=== PATIENT | male | born 1950 | race Caucasian/White ===

== ENCOUNTER 2022-03-25 15:03 | Emergency (ER) | payer OTHER ==
--- OUTSIDE RECORDS SUMMARY | 2022-03-25 15:06 | XMS REPORT | Continuity of Care Document ---
:1950 Author Organization [facility] t Address [address] [place] [address] Care Team Providers Name Role Phone [phone] Primary Care Physician Unavailable IRASEMA MYLES Attending Clinician Unavailable SYSTEM, PROVIDER NOT IN Attending Clinician Unavailable Maria C Costello Attending Clinician Benson Bryan APN Attending Clinician Valerie Jones APN Attending Clinician VALERIE JONES Attending Clinician Unavailable Silverio Irwin MD Attending Clinician SILVERIO IRWIN Attending Clinician Unavailable Mychal Lacey MD Attending Clinician Ander Bower MD Attending Clinician Provider, Unknown Attending Clinician Unavailable MATEO VACA Attending Clinician Unavailable ABDON DAVEY Attending Clinician Unavailable LIAM ALTMAN Attending Clinician Unavailable BULMARO Attending Clinician Unavailable DANIEL OSCAR Attending Clinician Unavailable Chandler Talamantes Attending Clinician [phone] IKE QUINTERO Attending Clinician Unavailable IRASEMA MYLES Admitting Clinician Unavailable LIAM ALTMAN Admitting Clinician Unavailable BULMARO Admitting Clinician Unavailable Payers Payer Name Policy Type Policy Number Effective Date Expiration Date Kevyn de anda MEDICARE PART A [id number] 2016 AND B 00:00:00 M[employer]UAL OF FABI [id number] 2016 00:00:00 MUTUAL OF FABI [id number] 2016 00:00:00 [place]: [id number] 2016 [employer] 00:00:00 MEDICARE PART A [id number] 2016 \\T\\ B 00:00:00 Problems Condition Condition Condition Status Onset Resolution Last Treating Co mments Source Name Details Category Date Date Treatment Clinician Date Malignant Malignant Disease Active Uni vers neoplasm neoplasm 03-13 ity of of 00:00: [place] prostate prostate 00 MD Ruiz [facility] Allergies, Adverse Reactions, Alerts Allergy Allergy Status Severity Reaction(s) Onset Inactive Treating Comm ents Source Name Type Date Date Clinician NO KNOWN Drug Active Univers ALLERGIE Class ity of S [facility] Family History Family Member Diagnosis Comments Start Date Stop Date Source Natural father Prostate [facility] [place] [facility] Social History Social Habit Start Date Stop Date Quantity Comments Source Exposure to 2022-03-13 2022-03-23 Not sure [facility]-CoV-2 00:00:00 08:22:00 Brodie allison (event) [facility] Tobacco use and 2022-03-23 2022-03-23 Smokeless tobacco Un iversity of exposure 00:00:00 00:00:00 non-user Brodie [facility] [place] Alcohol intake 2022-03-23 2022-03-23 Ex-drinker [facility] 00:00:00 00:00:00 (finding) [place] MD [facility] Sex Ass[birth year] Universit y of 00:00:00 00:00:00 Brodie allison [facility] Smoking Status Start Date Stop Date Source Never smoked tobacco [facility] Medications Ordered Filled Start Stop Current Ordering Indication Dosage Frequency Signature Comments Components Source Medication Medication Date Date Medication? Clinician (SIG) Name Name zolpidem Yes 10mg Take 10 mg Uni vers (AMBIEN) 10 8-15 by mouth ity of mg tablet 08:40: at [place] 15 bedtime. MD Sara durham [facility] tadalafil Yes 10mg Take 10 mg Un kayla (CIALIS) 10 1-11 by mouth ity of mg tablet 00:00: daily. [place] 00 MD Sara durham [facility] lisinopril Yes 2.5mg Take 2.5 Un kayla (PRINIVIL,Z 1-10 mg by ity of ESTRIL) 2.5 00:00: mouth [place] mg tablet 00 daily. MD Sara durham [facility] Vital Signs Vital Name Observation Time Observation Value Comments Source Body height 2022-03-23 14:00:00 172.7 cm [facility] MD [place] on [facility] Body weight 2022-03-23 14:00:00 84.5 kg [facility] MD Norton [employer] [facility] BMI 2022-03-23 14:00:00 28.33 kg/m2 [facility] MD [place] on [facility] Systolic blood 2022-03-23 13:35:13 147 mm[Hg] Univer sity of pressure [place] MD Norton on [facility] Diastolic blood 2022-03-23 13:35:13 76 mm[Hg] Unive rsity of pressure [place] MD [place] on [facility] Heart rate 2022-03-23 13:35:13 76 /min [facility] MD Norton on [facility] Body temperature 2022-03-23 13:35:13 36.39 Rose [facility] [place] [facility] MD [place] on [facility] Respiratory rate 2022-03-23 13:35:13 20 /min [facility] MD [place] on [facility] Oxygen saturation in 2022-03-23 13:35:13 94 /min [facility] blood by Brodie best Pulse oximetry [facility] Procedures Procedure Date / Time Performing Clinician Source Performed MRI PELVIS W WO CONTRAST 2022-03-23 19:59:52 Valerie Jones [facility] COMPLETE BLOOD COUNT W/ 2022-03-23 13:45:00 Valerie Jones [facility] DIFFERENTIAL [facility] LACTATE DEHYDROGENASE 2022-03-23 13:45:00 Valerie Jones versity [facility] PROSTATE SPECIFIC ANTIGEN 2022-03-23 13:45:00 Valerie Jones [facility] TESTOSTERONE LEVEL 2022-03-23 13:45:00 [facility] COMPREHENSIVE METABOLIC 2022-03-23 13:45:00 [facility] VIT[facility]IN D 25 HYDROXY LEVEL 2022-03-23 13:45:00 Valerie Jones [facility] PTH INTACT 2022-03-23 13:45:00 Valerie Jones [facility] MAGNESIUM LEVEL 2022-03-23 13:45:00 Valerie Jones [facility] PHOSPHORUS LEVEL 2022-03-23 13:45:00 Valerie Jones [facility] Results CBC 2022-03-23 13:45:00 Valerie Jones [facility] MANUAL DIFFERENTIAL 2022-03-23 13:45:00 [facility] GLUCOSE LEVEL 2022-03-23 13:45:00 Valerie Jones [facility] BLOOD UREA NITROGEN 2022-03-23 13:45:00 Valerie Jones [facility] [place] [facility] ELECTROLYTE PANEL 2022-03-23 13:45:00 Valerie Jones [facility] [place] [facility] SERUM CREATININE 2022-03-23 13:45:00 Valerie Jones [facility] .GLOMERULAR FILTRATION 2022-03-23 13:45:00 Valerie Jones [facility] RATE [facility] CALCIUM LEVEL TOTAL 2022-03-23 13:45:00 [facility] ALBUMIN LEVEL 2022-03-23 13:45:00 Valerie Jones [facility] [place] [facility] ALKALINE PHOSPHATASE 2022-03-23 13:45:00 Valerie Jones [facility] ALANINE AMINOTRANSFERASE 2022-03-23 13:45:00 Valerie Jones [facility] ASPARTATE AMINOTRANSFERASE 2022-03-23 13:45:00 Valerie Jones [facility] TOTAL PROTEIN 2022-03-23 13:45:00 Valerie Jones [facility] [place] [facility] FRACTIONATED BILIRUBIN 2022-03-23 13:45:00 Valerie [facility] O[facility] US TESTICULAR 2022-02-08 22:20:00 Physician, Outside [facility] [place] [facility] OSI SHOULDER 2022-01-16 01:20:00 Chandler Talamantes [facility] OSI FOOT 2022-01-16 01:19:00 Chandler Talamantes [facility] OSI BONE SCAN 2022-01-02 01:19:00 Chandler Talamantes [facility] OSI CHEST 2022-01-02 01:18:00 Chandler Talamantes [facility] OSI CT ABDOMEN AND PELVIS 2022-01-02 01:18:00 Chandler Talamantes [facility] PATHOLOGY OUTSIDE 2021-10-14 00:00:00 Ander Bower [facility] Plan of Care Planned Activity Planned Date Details Comments Source Future Scheduled Test 2022-03-25 COVID-19 Vaccination [facility] 09:45:56 (3 - Booster for MD Jose A Cancer Pfizer series) [code Center = COVID-19 Vaccination (3 - Booster for Pfizer series)] Future Appointment 2022-04-15 Irasema Myles MD, [facility] 10:20:00 1515 [place] [address] Center Future Appointment 2022-04-15 Irasema Myles MD, [facility] 10:20:00 1515 Tamra Merrill [place] [address] Center Procedure 2022-04-15 DIAGNOSTIC FLEXIBLE [facility] [place] 15:20:00 COLONOSCOPY PROXIMAL MD Neel sawyer Cancer TO SPLENIC FLEXURE Center Encounters Start End Encounter Admission Attending Care Care Encounter Source Date/Time Date/Time Type Type Clinicians Facility Department ID 2022-03-24 Outpatient CHRIS MYLES Percy/Hep/Nu [id number] 11:12:08 IRASEMA durham 2022-03-10 Outpatient JOCE, CHRIS PEREZ [id number] 14:49:26 PROVIDER Errol christopher 2022-02-27 Outpatient [facility] [id number] [place] 09:44:04 [id number] [facility] 2022-02-08 Outpatient [facility] [id number] [place] 15:38:45 [id number] [facility] 2022-03-24 2022-03-24 Prep for Walker, 1.2.840.1 [id number] Univers 00:00:00 00:00:00 Surgery Mertie 29997.1.1 ity of 3.412.2.7 [place] .3.702576 .8 [facility] 2022-03-24 2022-03-24 Orders Irvin, 1.2.840.1 [id number] Univers 00:00:00 00:00:00 Only Charvalentina 69463.1.1 i ty of A 3.412.2.7 [place] .3.050729 .8 [facility] 2022-03-23 2022-03-23 Ancillary Faisal, 1.2.840.1 [id number] Univers 14:15:00 16:00:00 Procedure Valerie Durham 09101.1.1 ity of 3.412.2.7 [place] .3.471415 MD Saavedra [facility] 2022-03-23 2022-03-23 Outpatient SABRINA JONES MDA MDA [id number] 12:05:22 12:05:22 VALERIE campbello n 2022-03-23 2022-03-23 [facility] Jones, 1.2.840.1 [id number] [facility] 08:24:02 08:24:02 Encounter Valerie Durham 41183.1.1 ity of 3.412.2.7 [place] .3.868905 MD Kim8 [facility] 2022-03-23 2022-03-23 Outpatient SABRINA JONES [facility] [id number] 08:24:02 08:24:02 VALERIEIGLESIA Shaikh shon durham 2022-03-23 2022-03-23 [facility] Silverio Irwin 1.2.840.1 [id number] [facility] 08:23:25 08:23:25 [place] 42221.1.1 it y of 3.412.2.7 [place] .3.318473 MD Kim8 [facility] 2022-03-23 2022-03-23 Outpatient SILVERIO KINSEY [facility] [id number] 08:23:25 08:23:25 Errol o marva 2022-03-23 2022-03-23 Travel 1.2.840.1 [id number] [id number] Univers 00:00:00 00:00:00 19299.1.1 350.1.13.41 ity of 3.412.2.7 2.[place].7.3.698 [place] .3.843946 084.8 MD Kim8 [facility] 2022-03-19 2022-03-19 Outpatient SILVERIO KINSEY [facility] [id number] 10:27:35 10:30:58 Errol o n 2022-03-19 2022-03-19 Lab Mychal Lacey 1.2.840.1 [id number] Univers 00:00:00 00:00:00 Ander Huff 44315.1.1 ity of n 3.412.2.7 [place] .3.290517 MD Kim8 [facility] 2022-03-19 2022-03-19 Travel 1.2.840.1 1.2.269.291 [id number] Univers 00:00:00 00:00:00 03097.1.1 350.1.13.41 ity of 3.412.2.7 2.[place].7.3.698 [place] .3.078919 084.8 MD Kim8 [facility] 2022-03-18 2022-03-18 Ancillary 1.2.840.1 [id number] Univers 20:35:00 20:40:00 Procedure 47592.1.1 it y of 3.412.2.7 [place] .3.974911 MD Kim8 [facility] 2022-03-18 2022-03-18 Ancillary 1.2.840.1 [id number] Univers 20:30:00 20:35:00 Procedure 75598.1.1 it y of 3.412.2.7 [place] .3.166588 MD Kim8 [facility] 2022-03-18 2022-03-18 Ancillary 1.2.840.1 [id number] Univers 20:25:00 20:30:00 Procedure 60990.1.1 it y of 3.412.2.7 [place] .3.870577 MD Kim8 [facility] 2022-03-18 2022-03-18 Ancillary 1.2.840.1 [id number] Univers 20:20:00 20:25:00 Procedure 07583.1.1 it y of 3.412.2.7 [place] .3.525047 .8 [facility] 2022-03-18 2022-03-18 Ancillary 1.2.840.1 [id number] Univers 20:15:00 20:20:00 Procedure 29294.1.1 it y of 3.412.2.7 [place] .3.395217 MD Kim8 [facility] 2022-03-18 2022-03-18 Outpatient EL MDA MDA [id number] MD 20:17:44 20:17:44 Errol o 2022-03-18 2022-03-18 Outpatient EL MDA MDA [id number] MD 20:17:04 20:17:04 Errol o 2022-03-18 2022-03-18 Outpatient EL MDA MDA [id number] MD 20:16:00 20:16:00 Errol o n 2022-03-18 2022-03-18 Outpatient EL MDA MDA [id number] MD 20:15:23 20:15:23 Errol o n 2022-03-18 2022-03-18 Outpatient EL MDA MDA [id number] 20:14:33 20:14:33 [facility] o 2022-03-18 2022-03-18 Ancillary 1.2.840.1 [id number] [facility] 20:00:00 20:05:00 Procedure 69422.1.1 it y of 3.412.2.7 [place] .3.286341 .8 [facility] 2022-03-18 2022-03-18 Outpatient MDA MDA [id number] MD 15:10:14 15:10:14 [facility] 2022-03-13 2022-03-13 Orders Jones, 1.2.840.1 [id number] Univers 00:00:00 00:00:00 Only Valerie Durham 66501.1.1 ity of 3.412.2.7 [place] .3.965872 .8 [facility] 2022-03-12 2022-03-12 Telephone Provider, 1.2.840.1 [id number] Univers 00:00:00 00:00:00 Unknown 37957.1.1 ity of 3.412.2.7 [place] .3.647497 .8 [facility] 2022-02-08 2022-02-08 Emergency E STROELLIOT ROJAS MHSE [id number] 14:58:00 20:52:[address] [facility] 2022-02-06 2022-02-06 Outpatient ELLIOT DAVEYSE [id number] MH 07:03:00 10:17:[address] [facility] 2022-01-15 2022-01-15 Outpatient ELLIOT ALTMAN URO [id number] MH 12:33:00 23:59:[address] [facility] 2022-01-15 2022-01-15 Outpatient AGAPITO, MHSE URO [id number] MH 07:00:00 23:59:[address] [facility] 2022-01-06 2022-01-06 Outpatient ERICKSON_R [facility] [id number] [place] 12:16:00 12:16:00 531 [facility] 2022-01-01 2022-01-01 Outpatient AGAPITO MHSE URO [id number] MH 07:26:00 23:59:[address] [facility] 2021-12-01 2021-12-01 Outpatient DAYNE MHSE MHSE [id number] MH 07:52:00 23:59:[address] [facility] 2021-10-06 2021-10-06 Outpatient ERICKSON_R [facility] [id number] - [place] 09:44:00 09:44:00 228 [facility] 2021-10-06 2021-10-06 Outpatient Albin, [facility] [id number] 00:00:00 00:00:00 Chandler [id number] [place] [id number] 2021-09-04 2021-09-04 Outpatient ERICKSON_R [facility] [id number] [place] 03:19:00 03:19:00 127 [facility] 2021-08-05 2021-08-05 Outpatient ERICKSON_R [facility] [id number] [place] 09:44:00 09:44:00 228 [facility] 2021-08-05 2021-08-05 Outpatient Albin, [facility] [id number] 00:00:00 00:00:00 Chandler lanzaa [place] [id number] [id number] 2021-08-05 2021-08-05 Outpatient Albin, [facility] [id number] 00:00:00 00:00:00 Chandler lanzab [place] [id number] [id number] 2021-06-30 2021-06-30 Outpatient ERICKSON_R [facility] [id number] [place] 08:40:00 08:40:00 122 [facility] 2021-06-26 2021-06-26 Outpatient ERICKSON_R [facility] [id number] - [place] 09:44:00 09:44:00 118 [facility] 2021-06-26 2021-06-26 Outpatient Albin, [facility] [id number] 00:00:00 00:00:00 Chandler [id number] [place] [id number] 2021-01-21 2021-01-21 Outpatient ERICKSON_R [facility] [id number] - [place] 01:48:00 01:48:00 615 [facility] 2020-10-08 2020-10-08 Outpatient Remigio [facility] [id number] Univers 08:10:00 08:10:00 IKE [id number] [facility] 2020-10-08 2020-10-08 Outpatient Remigio [facility] [id number] Univers 08:10:00 08:10:00 IKE [facility] 2020-10-04 2020-10-04 Outpatient ERICKSON_R [facility] [id number] [place] 10:18:00 10:18:00 226 [facility] 2020-10-01 2020-10-01 Outpatient ERICKSON_R [facility] [id number] - [place] 10:02:00 10:02:00 223 [facility] 2020-10-01 2020-10-01 Outpatient Albin [facility] [id number] 00:00:00 00:00:00 [place] [id number] [place] [id number] Results Test Description Test Time Test Comments Results Result Comments Source Testosterone Level 2022-03-23 16:09:00 Test Item Value Reference Range Interpretation Comme nts Testoster Tot (test code = >1390 193-740 H R eference Ranges: Male: 2986-8) Age 20 - 49 249 - 836 Age >=50 193 - 740 Female: Age 20 - 49 8 - 48 Age >=50 3 - 41 NABIL (test code = NABIL) Please schedule early AM prior to new patient visit. Lab Interpretation (test code Abnormal = 76638-7) [facility] [id number] 16:05:03 Test Item Value Reference Range Interpretation Comments Vitamin D 25 OH 34 ng/mL 30-100 Reference Ra nge: (test code = Deficiency: <10 19378-1) ng/mLInsufficie ncy: 10-29 ng/mLSufficienc y: 30-100 ng/mLPotential toxicity: >100 ng/mL NABIL (test code = Please schedule NABIL) early AM prior to new patient visit. [facility]A2022-08-15 15:57:12 Test Item Value Reference Range Interpretation Comments PSA (test code = 8.6 ng/mL 0.0-4.0 H Results gre ater 2857-1) than 4519 ng/mL may not be reliable due to matrix effect w ith extended diluti on as it exceeds t he resource specialist teacher's recommended ramirez it. Caution should be exercised when interpreting durham ch values and done in conjunction wit h clinical contex t. PSA Indication (test Diagnostic code = 81807-9) NABIL (test code = NABIL) Please schedule early AM prior to new patient visit. Lab Interpretation Abnormal (test code = 70490-1) [facility] CenterFractionated [id number] 15:57:11 Test Item Value Reference Range Interpretation Comments Bili Total (test 0.7 mg/dL See_Comment Indocyanine Green code = 1974-2) (ICG) may cau se falsely elevate d bilirubin resul ts. Total and direc t bilirubin must not be measured from s amples containing indo cyanine green. False el evation of total biliru bin can be seen in sliva ents with IgG concentrations above 28 g/L. [Automa lev message] The sy stem which generated this result transmit lev reference range : <=1.2. The refe rence range was not u sed to interpret this result as normal/abnor mal. Bili Direct 0.2 mg/dL See_Comment Indocyanine Gre en (test code = (ICG) may cause 1968-02) falsely elevate d bilirubin resul ts. Total and direc t bilirubin must not be measured from s amples containing indo cyanine green. [Automat ed message] The sy stem which generated this result transmit lev reference range : <=0.3. The refe rence range was not u sed to interpret this result as normal/abnor mal. Bili Indirect 0.5 mg/dL 0.0-0.9 (test code = 1970-) NABIL (test code = Please schedule NABIL) early AM prior to new patient visit. [facility] CenterPhosphorus [id number] 15:57:10 Test Item Value Reference Range Interpretation Comments Phosphorus (test code = 2.6 mg/dL 2.5-4.5 2777-1) NABIL (test code = NABIL) Please schedule early AM prior to new patient visit. [facility] CenterLDH2022-08-15 15:57:08 Test Item Value Reference Range Interpretation Comments LDH (test code 215 U/L 135-225 Results great er than = 62567-6) 1651 U/L may no t be reliable due to matrix effect with ext ended dilution as it exceeds the manufacture r's recommended ramirez it. Caution should be exercised when interpreting durham ch values and done in conjunction wit h clinical contex t. NABIL (test code Please schedule = NABIL) early AM prior to new patient visit. [facility] CenterGlomerular Filtration Rate 2022-03-23 15:57:07 Test Item Value Reference Range Interpretation Comments eGFR-AA (test 86 See_Comment Normal eGFR: > = 60 code = mL/min/1.73 m2N ote: The 02185-7) eGFR is calcula lev using the CKD-E PI equation. The e GFR declines with a ge. eGFR <60 mL/min/1.73 m2 is considered as "decreased". Th is equation should only be used for patien ts 18 and older. Acco rding to the National Ki dney Foundation's Ki dney Disease Outcome Quality Initiative (KDO QI) classification and 2012 Kidney Disease Improving Globa l Outcomes (KDIGO ) Clinical Practi ce Guideline, the stage of CKD should be categorized bas ed on estimated GFR. Stage Description GFR mL/min/1.73 m21 Normal or high GFR >=9 02 Mildly decrease d GFR 60-893a Mildly to moderately decr eased GFR 45-593b Mod erately to severely dec reased GFR 30-444 Sara rely decreased GFR 1 5-295 Kidney failure <15 [Automated mess age] The system which ge nerated this result tra nsmitted reference range : >=60 mL/min/1.73 sq. m. The reference range was not used to interpr et this result as normal/abnormal . eGFR-ROBBIN (test 74 See_Comment Normal eGFR: >= 60 code = mL/min/1.73 m2N ote: The 46097-8) eGFR is calcula lev using the CKD-E PI equation. The e GFR declines with a ge. eGFR <60 mL/min/1.73 m2 is considered as "decreased". Th is equation should only be used for patien ts 18 and older. Acco rding to the National Ki dney Foundation's dney Disease Outcome Quality Initiative (KDO QI) classification and 2012 Kidney Disease Improving Globa l Outcomes (KDIGO ) Clinical Practi ce Guideline, the stage of CKD should be categorized bas ed on estimated GFR. Stage Description GFR mL/min/1.73 m21 Normal or high GFR >=9 02 Mildly decrease d GFR 60-893a Mildly to moderately decr eased GFR 45-593b Mod erately to severely dec reased GFR 30-444 Sara rely decreased GFR 1 5-295 Kidney failure <15 [Automated mess age] The system which ge nerated this result tra nsmitted reference range : >=60 mL/min/1.73 sq. m. The reference range was not used to interpr et this result as normal/abnormal . NABIL (test code Please schedule = NABIL) early AM prior to new patient visit. [facility] CenterCalcium [id number] 15:57:06 Test Item Value Reference Range Interpretation Comments Calcium Lvl (test code 8.9 mg/dL 8.4-10.2 = 63489-5) NABIL (test code = NABIL) Please schedule early AM prior to new patient visit. [facility] CenterTotal [id number] 15:57:05 Test Item Value Reference Range Interpretation Comments Total Protein (test 6.9 g/dL 6.4-8.3 code = 2885-2) NABIL (test code = NABIL) Please schedule early AM prior to new patient visit. [facility] CenterAlbumin [id number] 15:57:04 Test Item Value Reference Range Interpretation Comments Albumin Lvl (test 3.9 See_Comment [Automate d message] code = 4763) The system whic h generated this result transmit lev reference range : 3.5 - 5.2 gm/dL. Th e reference range was not used to interpret this result as normal/abnormal . NABIL (test code = Please schedule NABIL) early AM prior to new patient visit. [facility] CenterMagnesium [id number] 15:57:03 Test Item Value Reference Range Interpretation Comments Magnesium (test code = 2.1 mg/dL 1.6-2.6 79192-0) NABIL (test code = NABIL) Please schedule early AM prior to new patient visit. [facility] CenterAspartate Aminotransferase 2022-03-23 15:57:02 Test Item Value Reference Range Interpretation Comments AST (test code = 56 U/L See_Comment H [Automated 1920-03) message] The system which generated this result transmit lev reference range : <=40. The reference range was not used to interpret this result as normal/abnormal . NABIL (test code = NABIL) Please schedule early AM prior to new patient visit. Lab Interpretation Abnormal (test code = 22071-5) [facility] CenterAlkaline [id number] 15:57:01 Test Item Value Reference Range Interpretation Comments Alk Phos (test code = 122 U/L 40-129 6768-6) NABIL (test code = NABIL) Please schedule early AM prior to new patient visit. [facility] CenterElectrolyte Pskzj9812-02-76 15:57:00 Test Item Value Reference Range Interpretation Comments Sodium Lvl (test 141 See_Comment [Automated code = 2951-2) message] The system which generated this result transmitted reference range : 136 - 145 mEq/L . The reference r bryan was not used to interpret this result as normal/abnormal . Potassium Lvl 4.2 See_Comment [Automated (test code = message] The sy stem 2823-3) which generated this result transmitted reference range : 3.5 - 5.1 mEq/L . The reference r bryan was not used to interpret this result as normal/abnormal . Chloride (test 105 See_Comment [Automated code = 5-0) message] The system which generated this result transmitted reference range : 98 - 107 mEq/L. Th e reference range was not used to interpret this result as normal/abnormal . CO2 (test code = 26 See_Comment [Automated 2027-) message] The sy stem which generated this result transmitted reference range : 22 - 29 mEq/L. The reference range was not used to interpret this result as normal/abnormal . Anion Gap (test 10 See_Comment [Automated code = 55229-4) message] The system which generated this result transmitted reference range : 4 - 14 mEq/L. The reference range was not used to interpret this result as normal/abnormal . NABIL (test code = Please schedule NABIL) early AM prior to new patient visit. [facility] 15:[facility]59 Test Item Value Reference Range Interpretation Comments ALT (test code = 42 U/L See_Comment H [Automated 1742-01) message] The system which generated this result transmit lev reference range : <=41. The reference range was not used to interpret this result as normal/abnormal . NABIL (test code = NABIL) Please schedule early AM prior to new patient visit. Lab Interpretation Abnormal (test code = 17345-8) [facility] [id number] 15:56:58 Test Item Value Reference Range Interpretation Comments Glucose Level (test 108 mg/dL 70-99 H Effectiv e 03/04/16, code = 2345-7) the glucose reference intervals have been updated ba sed on [place] [employer] guidelines (Standards of Medical Care in Diabetes 2016. Diabetes Care 2016; 39: S13-S22).Fastin g blood glucose:Normal: 70-99 mg/dLImpaired fasting glucose (increased risk for diabetes or pre-diabetes): 100-125 mg/dLDiabetes mellitus: >/=12 6 mg/dL Random bl ood glucose:Normal: 70-199 mg/dLNot e: Random glucose >100 mg/dL is associated with increased risk for diabetes NABIL (test code = NABIL) Please schedule early AM prior to new patient visit. Lab Interpretation Abnormal (test code = 07628-4) [facility].Serum [id number] 15:56:57 Test Item Value Reference Range Interpretation Comments Creatinine (test code = 1.02 mg/dL 0.67-1.17 2160-0) NABIL (test code = NABIL) Please schedule early AM prior to new patient visit. [facility] 15:56:56 Test Item Value Reference Range Interpretation Comments BUN (test code = 16 mg/dL 6-23 3094-0) NABIL (test code = NABIL) Please schedule early AM prior to new patient visit. [facility]PTH Jyhqtq5339-25-91 15:48:40 Test Item Value Reference Range Interpretation Comments PTH Intact (test code 61.9 pg/mL 15.0-65.0 = 6769) NABIL (test code = NABIL) Please schedule early AM prior to new patient visit. [facility] CenterDifferential2022-[facility]-15 15:22:05 Test Item Value Reference Range Interpretation Comments Neutrophil % (test 51.2 % 42.0-66.0 code = 770-8) Lymphocyte % (test 35.2 % 24.0-44.0 code = 736-9) Monocyte % (test code 10.3 % 2.0-7.0 H = 5905-5) Eosinophil % (test 2.1 % 1.0-4.0 code = 713-8) Basophil % (test code 0.9 % 0.0-1.0 = 06753-0) IGRE % (test code = 0.3 % 0.0-0.4 IGRE % c ount 69747-3) includes Metamyelocytes, Myelocytes, and Promyelocytes. Neutrophil Abs (test 1.69 K/uL 1.70-7.30 L code = 751-8) Lymphocyte Abs (test 1.16 K/uL 1.00-4.80 code = 731-0) Monocyte Abs (test 0.34 K/uL 0.08-0.70 code = 742-7) Eosinophil Abs (test 0.07 K/uL 0.04-0.40 code = 711-2) Basophil Abs (test 0.03 K/uL 0.00-0.10 code = 704-7) IG Abs (test code = 0.01 K/uL 0.00-0.04 96705-3) NABIL (test code = NABIL) Please schedule early AM prior to new patient visit. Lab Interpretation Abnormal (test code = 65020-6) [facility] [place].KHA2610-11-45 15:21:50 Test Item Value Reference Range Interpretation Comments WBC (test code = 3.3 K/uL 4.0-11.0 L 6690-2) RBC (test code = 4.50 See_Comment [Automated 789-8) message] The sy stem which generated this result transmitted reference range : 4.50 - 6.00 M/u L. The reference r bryan was not used to interpret this result as normal/abnormal . Hgb (test code = 14.9 See_Comment [Automated 178-7) message] The sy stem which generated this result transmitted reference range : 14.0 - 18.0 gm/ dL. The reference r bryan was not used to interpret this result as normal/abnormal . Hct (test code = 44.1 % 40.0-54.0 4544-3) MCV (test code = 98 fL 82-98 787-2) MCH (test code = 33.1 pg 27.0-31.0 H 785-6) MCHC (test code = 33.8 See_Comment [Automate d 786-4) message] The sy stem which generated this result transmitted reference range : 31.0 - 36.0 gm/ dL. The reference r bryan was not used to interpret this result as normal/abnormal . RDW-SD (test code = 52.3 fL 35.1-46.3 H 25228-2) RDW-CV (test code = 14.5 % 12.0-15.5 788-0) Platelet count (test 78 K/uL 140-440 L code = 777-3) MPV (test code = 12.3 fL 4.0-10.4 H 91913-5) INRBC (test code = 0.0 % See_Comment The INRBC 54832-8) (instrument NRB C) value reflects the enumerationof nucleated red b lood cells contained in a 200uL sampleo f whole blood analyzed by the instrument. Thi s value maydiffer from the NRBC v alue reported in a manual differential,wh ich is based on a 1 00 cell differenti al. [Automated mess age] The system [employer] generated this result transmit lev reference range : <=0.0. The reference range was not used to interpret this result as normal/abnormal . NABIL (test code = NABIL) Please schedule early AM prior to new patient visit. Lab Interpretation Abnormal (test code = 59188-3) [facility] Outside Interpretation 2022-03-20 21:18:10 Test Item Value Reference Range Interpretation Comments Materials Received (test s3ipaVTsAORuqHIzYgCa code = 9973) TFPbBVRgs8ciUJHluNBw ZzEwMzNcZnRuYmpcdWMx JFCqItJoc7nkw704yTJz a0kvSVVoSsP9mGSqBBSj hYDhA472SOPyWKgek9qd x2GwHYDyrCYhq3Y5VEOV kcsicFq0nMbjK32vt7W6 DtvoJ3hxMPYmZEBbP4Yu AH9jWFJuBvx8YQR5IUD7 CSDpWUWgF1JoGE0aIQVg yAMeUTs0f8tpsWqdPPEk MIG4n2reVCasbwIeTN9v rt3ddRj8b3jlwkGyFYEi ILEkyTTMTXMrZ5YlhIkg Tx6pdSv9zXscKfgeKYJ7 Dlc4BS7tey32jgl9yOdx ABMxrhbaRyX5COieIKEj htsnLQh3LTxkFBRchOdn MFxtYXJncjcyMFxtYXJn mWY2ADIqiFSfD9PnBHId VZykBUWsrmz7YgImOi3u sFTquJnoGPfhs2hxh4lv dHHhBai5GEKtCeUcLsdo ZZohh5Xdn3arSTIitz1h DPI7tIOigOrkd0W4iQEp EKFsrOScbkEfPWTpsn03 pMUysUVtfZQfqc0dnyAa rOUnyYNaEKY4pGKwrbOf KONbzFQmCRRuMN2xmXWg DIGwtQ4rvcfnCPFdOxMx nrmxLYWgrFcgimVbFh0c jIdsSHK6BMusM9bqfZ6z SlQ0NXdtU3gqvX3dCZx6 BQvinRE7YOYspW9oBZ2c ngyqd5vgRzEqWG8jwgub i7skLhIoNL4owft8t3tm ALH5KRojNJUaGkM5lhF6 NDBcaGVhZGVyeTcyMFxm x579IAF8HmApRIGaw5Ua B4IgcNkqG99mnKycN98n DZLkeSqzkO0zpOffoD0w BqNaKeEqSYa2py25PRb4 vttfgYvxOMa1liOhEHHx HXS5UTZdjKCcRLBzM0i1 noVyRRZxIYF4YBVihNTv FRFiY1h1mgEbVUZ2BGf1 cnBhZGRmdDNcdHJwYWRk YjBcdHJwYWRkZmIzXHRy jAZayDDnhPTvgQ8yfLba DTKalDJmnG6mXNS6QEZs cmgzMjBcdHJoZHJcbHRy tc21HZStbrAnfWQbuAcb tFEhTXG3OMEePGBdLSSn XLK0ULCxWpIrhuNaBKmw bGJyZHJiXGJyZHJzXGJy YXQ4NLRvNlFcbzGyMOor bGJyZHJsXGJyZHJzXGJy SWD0TUVfUmHgyrAkIGfd bGJyZHJyXGJyZHJzXGJy WMV3NFMaSsJhptEfLWpa bHBhZHQxMFxjbHBhZGZ0 S4hejUPcOKMpVBdlmXFj MTUbB4dlhBZkNGabVCYw cGFkZmwzXGNscGFkYjBc M8qgSBRyTvZtX1YcmQb3 MDAwXGNsdmVydGFsdFxj lWLyRAY6WSArFFGlLMLd TGB1CYSpLbOxgnFiNIkr bGJyZHJiXGJyZHJzXGJy UCO1TNYsJsKzttIsPXne bGJyZHJsXGJyZHJzXGJy AWQ7NYCxZaIjznFoZSep bGJyZHJyXGJyZHJzXGJy RFK8RXIgWuUaomXyIUhw bHBhZHQxMFxjbHBhZGZ0 D7fxtLMdVAIuYUwewHKv HPJnD7fsgWGcPQemXUQp cGFkZmwzXGNscGFkYjBc E5zoFHKyVnNlZ5BopRb6 NjAwXGNsdmVydGFsdFxj rIRuAPI6DZCyQSRoXJSz NJG2AYItLsSosqVjTAit bGJyZHJiXGJyZHJzXGJy GJJ4ACTmDzMcnmYxUJrc bGJyZHJsXGJyZHJzXGJy HQP7QJBbYlIexlLkWZbh bGJyZHJyXGJyZHJzXGJy UCX9BNMvLgBkwgAgTYek bHBhZHQxMFxjbHBhZGZ0 A5upbQBbGHSfQEpktUFj ZSUbA8sgqUKkHMftMXIg cGFkZmwzXGNscGFkYjBc I5psWLHqLnChQ8QidMd4 AeFbTTBxwaReiX38Yoqk r2KtRINvJPI8SDlkVIsz bFxwbGFpblxmMVxmczIw XRqhavznTVAqHDzkD6cc DeKzZBJjsXipCHxgt8Cd XGYxXGNmMlxmczIwXGIg INBuVLTkpU6aIjejW8Nh hF9sBZjjWnypH7rmZQUj o0IgoV5sCZkoaLOcdobb MVxmczIwXGxhbmcxMDMz BVdjG9oySqDsHXQhcOxf XWsbt1UlGVEmQIDlMagd vwIiMWq2vtWfHCGwmMmb fRBoZOoejcElpSjvs2Bu ufIsaYohGRMgJOv8xoLn rcgeoKu8oBDivGckPUZz yBobjY5qRfFkKhQhZZun bGFpblxmMVxmczIwXGxh singVVMaVJiaV8cqYtOk YQXyiGdzKVfwg4SiMIQm ZRFgPbcsboGjSTOpO48p bGVjdGVkXHBsYWluXGYx XGZzMjBcbGFuZzEwMzNc aGljaFxmMVxkYmNoXGYx ZFqkW4ulYlRcQ7WaMOSa ThAbeHVxB2zrN5YtcSkn YXJkXGludGJsXHNzcGFy VJC4rWNaslXrsDKiiKPi CUMkDZuxFGG9cQAtrrle eITzdhnqKEvaqlL1XLDn YWluXGYxXGZzMjBcbGFu ZzEwMzNcaGljaFxmMVxk LdHxJOOpLMvyK2nhBrUx X5NzHGJtXmKrYlKUMHHf aXZlZFxwbGFpblxmMVxm czIwXGxhbmcxMDMzXGhp W7laJzKrCRVgqOcpZCdc p0RtMAOxRWOrZxefcwOd XDu0xwLvVZZtpPzgyO93 Uyubpj99VLGte6rkMYAh F7AuyDCaCIAwmYFiGEqu MDhcdHJwYWRkZmwzXHRy cGFkZHIxMDhcdHJwYWRk ZnIzXHRycGFkZHQwXHRy xNKtHSM7S8c3smKnNNEs LBb4jgNvFUUhUcQxfHEm BWJ0SZf1JuznuqT1gLTs C2r3CchdzwEaWUzxpXRm il49FUOeszFlzZGicUuk qHVtRKR8LNEdFSAeDMXt RJD1XGHlLkFlpjOeZAnx bGJyZHJiXGJyZHJzXGJy LOK5AZRcQiNmqgZgOIzh bGJyZHJsXGJyZHJzXGJy PGA6WCEnOhVjwgAyAIyr bGJyZHJyXGJyZHJzXGJy TSL1TOTcRdOqtjMnMJme bHBhZHQxMFxjbHBhZGZ0 K2ibpECwNIMpTAioqMGa RVVcR0entBNoAXcrVRKm cGFkZmwzXGNscGFkYjBc F9fmYMLeGjXgI4PviVp6 MDAwXGNsdmVydGFsdFxj eTPmLGQ2EHGaOBJpZRDn GQU4CGAkUjHcevVgNEsn bGJyZHJiXGJyZHJzXGJy UHL0WSRiSzSprbOzHHio bGJyZHJsXGJyZHJzXGJy UPS4RQXzXqSbihMeZLqj bGJyZHJyXGJyZHJzXGJy AUU4XIHvYiUojmJtYGhd bHBhZHQxMFxjbHBhZGZ0 L4ouzSZpGBJoYThlzQYv HYJiH8asmRSiPRaiCNZi cGFkZmwzXGNscGFkYjBc S5olMTSuTuKpX6QkoDt4 NjAwXGNsdmVydGFsdFxj fWOeAMQ3XIAiPRNgDADm RZK0GZQvYrFfljCvBUji bGJyZHJiXGJyZHJzXGJy TAA5NTWtQiJyszHzRPzz bGJyZHJsXGJyZHJzXGJy NBT7PSCcNqRltpNvJCke bGJyZHJyXGJyZHJzXGJy WXC8ZRCsYrUzadKfDSgx bHBhZHQxMFxjbHBhZGZ0 H9uzwTXqGDBoNMyuoTVf GVOhS8lzvEFbPPrnKSJc cGFkZmwzXGNscGFkYjBc D0wfVQQvPaQjD6XiwQt2 SkNpDZKbspYawH16Ruex p1EyBLRaLBK8NJkqAOxi bFxwbGFpblxmMFxmczI0 XHBsYWluXGYxXGZzMjBc bGFuZzEwMzNcaGljaFxm RUirKjVrEKRkAMrxB7po WoRiN5AkRUCmKoKpKS2y GELoDLQ7Fqq3AUT0CZDZ FGTwPPLBU0XBYsebLRJO M9AeeWxvdH6yYfDjTmAa FPjoRD7vGWJaO6tulDYe KKEpQYFtF1isFtKheT8h aFxmMVxjZjJcZnMyMFxs dHJjaFxjZWxsXHBhcmRc lR25Oahhl8IfHLOyPLS1 MFxzMFxxbFxwbGFpblxm BSxcnuQ1CPOaJRzwOYJc XGZzMjBcbGFuZzEwMzNc aGljaFxmMVxkYmNoXGYx XZijT2xhImKgF1OeYLFq ZqRzWi38NhCvJgCecTks rL6iNvPtXsOpHMfcLH4m QZIaB0elhHKhXUFpUQDv E6slFsUanR6qiRyzMZtc ZjJcZnMyMFxsdHJjaFxj SRtqXABrmoTgkB64Hgqf b7BfGJPzNHG5ICggIJks bFxwbGFpblxmMFxmczI0 XHBsYWluXGYxXGZzMjBc bGFuZzEwMzNcaGljaFxm CRjnQbRiUZOkFHlqJ8es JlZeC5MdQREbPfPfEM8r VH4rJLRjQDHaEWxfYMHs XGZzMjBcbGFuZzEwMzNc aGljaFxmMVxkYmNoXGYx IRirN9vcJeRdJ7UyDMHx DrJqvUOxJ3ziA3JhcJis meSucDyjq5nxeHKePIxk a6HckmKccKvqLHAsEZTu XHBsYWluXGYwXGZzMjRc uTzjjX8tPpLuGtTtOZde OO7rXRRhT2eegEMuKSHz BJXjE3siDcVlkM0gmXoe MVxmczIwXHBhcn0= Diagnosis (test code = l2wfoWKgSXZcpKI6LSXo 34) DLVlr6pyr4RbcZZshNWx HRbolIYrowKyue91jKE5 vM45CH7lGZMiIgK7LXUa ipM0Gwb1IJXgNPRuaNOt Y846e7dqn7jagnLfhJU9 COVfTOMdK2XdPX3rKMQk cSBgJ8cfROGlQBlrppAp wdB3GQOrhJR1FDs1TGQz cGVydzEyMjQwXHBhcGVy fGL8GWUySY2rwbdcUCok GOdaVCWfiiJ9WILvcWJb X8FeRYEbLQ4sabbkNFN8 TAiaUYUbGXP9AhMlOIUu y8Axjay7HgObkHVoDKrl bGFpblxmczIwXGNmMSBP kUIeqKQzTMk3KwOpEDe6 OKulMVoqH4DaBWSlEMBv XKrrMC3PFHA9DKZVAAvo DqEvOj0KXXN0RFHmn221 dx7xECrgIHksGISSXK7J T3OdCPNfGPWBLKLja7bc PWV5ZLOgh51sMq46YePc JiJwRELaxc6yxOS7WBHa sI2ga2ssfwIuCYPeE89p aKBkEHNtXHGqdJdvq5B6 THeuSAMiV1YvUTQgrixn gEP6IVVjFoxgRLK6KEft iN0jVHqzSWFgWRxiOBLi Jx7sGDnbArZreDmuXnli YXJccGFyXGZpLTcyMFxj MnCoMXQLL6LVIGxWOLPP ZB3NK4CXD1cUC12RFUGC LACDU41ANTKDY2UBUGlg KDMrNCksIFdJVEggMjAl BIpMMBUXP34wCUKYNLNF FiG3PQZPZmNXQDFBKu3T IMCmDKP8TT3OTXOXH6NU LlxwYXJcbGkzNjAwXGZp CUN4VHPxfEuvImViUOsp YXJcbGkyODgwXGxpbjI4 XCWqL9FfXAQoHHNNmXua bOQwkWH5YQWycxamLLLa KaqqNpVmQROuEEYKMi1R ZGTGODZbQQJVQk5XLUZW WU3NLAAgHFtLGAXPJ73f C2HXZjXmGbAgMta2ZRdi L5vJPVYaOYGwW5tAJYMA TiBQQVRURVJOIDQsIEdS PWFUKBaEO9TQPAPgQXIn WH8kPv2GPSKnCEOvnevd FbHxfBXlJBXyETL2ARYm B3AlEZecUCUETAM7RYmj dGVyYWwgbWlkIChJSEMg IHgxKTpccGFyXHBhclxm dN51FrKgD5EjNZWEJ9JK NUYMJoZYNXRNS3TYKsSL Tw7WRDboL0lVNDMBUvGX N55PWOA4XGfkDgGmFXXC KTCLXCQjYCGDOONMM00I YIKOEJVMHp5jURnrN0TB CIKzX8QLEHDzGogiNhLZ SJEPD6HSAa6mY8HRCZOB BF4ZTnLhFSZvlshxGDPi I2SXFqXGUd4CVFJABPJU J73UXFPCKOUOPx3mLHMD KeVMLU9HDaKpqKFeYMQw XEL2RCSpJ0BjOTYwuwIL WdRdHslvuWHlbGW2ZGQl bCBtaWQgKElIQyBYIDEp OlxwYXJccGFyXGZpLTcy UYduBqMqXZZIL7LYEWkD UVWCCW4NR0GRI0oZA40G LTYTCMDXO29QEPFKP2IO IDcgKDMrNCksIFdJVEgg OPFcK6vBQGFYPkVCXDVB RVJOIDQsIEdSQURFIEdS M8DOYJYwBKpYI3VgDAyV HqBdCY0WJTCIS7GVXeXf E4LQQVSRJC5RJkIpHJMq klhkpK4kKUAfPVOfCSjn NIVaZt9mFLhhNzQxzGS9 MSRtjRWqnIK7BgsaJUKh cGFyXGZpLTcyMFxjZjAg CEDIJ1ZEOCvQCOZDIA9L G6IAZ7wMJ09WCUKOSASP U85ATLMMN8RAJDEeCOKa CtmlIUvSSMUXIIxLX8PL KCRsSSYfRS4tJh8XHVSn XHBhclxwYXJcZmktMTQ0 MFxjZjFccGFyXGxpMFxm aTBcbGluMFxjZjJccGFy MWLAE1RTFdHbpZLoeL== Comment (test code = i0wfiHBgKLFlvBU9BRXa 9802) BTNmf8mpq2VzlVQfjWJq WArhrTGxpcTmfp48iUN5 oW07RP5bQSWaZbF9IJOa tiA7Vwf3VSCoSZHraOIq P440h4srj7afhuKqhZG2 LJCwTYGzC8WtWF4nIBPj wCZgX48lbCKwHQD5MFJf OJAzoBZfVTKySWV6TWIk zJKlE1voLXBlCU9ddocv LNmwGEkeYGMbaQZ8XXGs gXQsF2GlLICwYVinDELr nhf2ZkWlMy6ssCXkuXck MFxwYXJkXHBsYWluXGZz MjAgUGFydHMgQSwgQiwg DT8VPUWITGydhmKbxl26 ALTuV6WkmrKpNNStjzSj KWSkDAljTPQvxaH1jSDq boUca7E3OM9lIJGkPXKk l382ahckpEGsshfuoOT1 cE1uw0uyf2MogXhxb2Ku o1FyH0ttHY7gPCTsMK9p dJWrs602JEblQDY9vP0g LiBccGFyXHBhclxjZjEg YJnuMPGnl3HgLGOjDMNJ TiBUcmlwbGUgKENLOTAz OYPvIaRmJN6eWYK9DDIT SIIygLj3vZNkXTkwf1Xl kT8rBBijLhZzx1UprW0l vISzAp87HSTuwTLgqc0b ZXMuIFxwYXJ9 [employer](s) (test i6kvkTYrIFYqpRW0LZBn code = 9841) VRDjm0xrb3GzhMRdtPZn RGrkpMSzfcAsze67yUL1 hT04UU9kLFYsUhR3LJPc puA6Ykn4QRZmGHMuuQRp X290p0ikd1aejvOboVQ6 eVgsVKJwormaEkM0EWbv MCImrxckCBt9WUgeBDVi tTR1XZOoiZHqX0CfKEHc PW2jdqw8LAM7KKdxPHHb SoR7OAEnsWMsGBUndQcz XXlpt653KHD3PzBgFWOu klWusVslyF3dQyGtZSEA ubzyOZF1QCP2uF7mOTFb l2GhPyEQVZZmkfafXFP6 Disclaimer (test code = e7rgiWXsXXPllCXbJzHo 9844) ZNMlRHJjb4gkQUHgjHEm ZzEwMzNcZnRuYmpcdWMx XUYaRiQdi5yvl893gBIz r8ueHEEpOvA6xZKkJJUr kDTfN092OKWoWPglo2pe w4ExMFUglPLvi9H4LNDY nwlckSj8kOisJ78uc3S8 BrgqG9dzVWDzSWPjF3Yu IJ3gFRKoHyl3FQX5LWD6 UZVzBPWpC8IoDA2bYSDb mMRbCJc4i4eieMxkBSHj ADT0h4lcXBktafDcIE7p hb4rrKn7k0ysliTcBHXl TNLmuPPRYYOnJ8CruEpz Ph3tsBh9iXlmYckiKSV2 Ufa0TR8edv04yee9eOdj ZKYtwfqbDyR9HOumRSVs yeioCOv3NYyaIOWwiHO9 NZCmqOAvJ6HuMUCxNX7h vyu6XKR0FSpwPLKvHbA7 NDBcaGVhZGVyeTcyMFxm d953JPH8PfHvCV9zS8Mh x7G2vA1dqTElOUTkjLSu LrQbZSMmsj0omODuSMxx x0IdHCF8ytD1uKAboMNv VFKmIU91Inmka9XiFoqa WKS9TOGbkcWbe5Aqj3vz FtAmiwXpZ3dtS7XfZMRy FVOcNRVrTzRwavQyy7Ig r8GpkAGokJe2k0aoIEUb XOKujCmif4ckLJW6QSTp O8B2kMFpk2qiEBsxNXHx aPT5kiM7TANgcICqP1Gt pU9cQNVpYW0yutx0e2sy NXA3ANctUHBjHcJ6rsV6 NDBcaGVhZGVyeTcyMFxm l885YYC4VhSrCOAxq3Bs Z2OvpLlqG72zzMcdE25u SNAurKqmpN1ltYvdoM8m ZjBcZnMyNFxxbFxwbGFp kkbcMMxmfgG5RAjjlerw ILEvRRlrJ5sqLdUkXKId cUsuDEbuk6KsNXBiGDRu XrirndX1GYCHa61pHKGj h5HaSVTjfA8ioTHlUOex xfKcmJB8KYfbdiUeWeMx czSdTLNtgO5hAWLaFB8i BXSjdlGnjn4aueMoOBRi IAXwR1YecahqqQdffzXt IXVcqe2fcaAdKAL3KUET IM6HGHIvGHHou00iOEXw sBgxmO0vaRDaqrVhTONe v7IugD1gdKUIKHOuY1gw SR0aHZiyr0VzcAHxcXLh bQU1OVKdr2NzGnIpyvKd qSQalAGjV8EpfEqaH4eq BILhVWGmkvFgjAMso5Vm UPTyzTB0vKStSS8PMqWT c91aQFSsMXTVzhVbOCOn hIcmgXT7mpX6cY0uDlTE ZiBhcHBsaWNhYmxlLCBj c705zu2tdsH7VHRsKNFu nzozx3UuZMGwRITgaF09 SHLiCMLhsf5yhsxhvDTy qhLxF5Vqxcy9qM0vHOBq YWluXGYxXGZzMjJcbGFu ZzEwMzNcaGljaFxmMVxk SeKnOJXwOWmyZ0mmBcLg ZnMyMlxwYXJ9 [facility] [place]
[2022-03-25 15:35] LABS: Absolute Lymphocytes (CBC) 0.9 K/uL (0.7-4.9); Hematocrit 43.9 % (39.6-49.0); Lymphocytes % 24.9 % (15.3-44.8); MCV 96.2 fL (80-100); MPV 8.5 fL (7.6-11.3); RBC Red Blood Cell Count 4.57 M/uL (4.33-5.43)
[2022-03-25] MEDS ORDERED: MORPHINE 4 MG/ML SYR ONE (15:44)
[2022-03-25] MEDS ORDERED: NA CHLORIDE 0.9% 500 ML ONE (15:44)
[2022-03-25] MEDS ORDERED: ONDANSETRON 4 MG/2 ML VIAL ONE (15:44)
[2022-03-25 15:48] LABS: Urine Blood 3+ (Negative); Urine Glucose Negative (Negative); Urine Protein 2+ (Negative); Urine Specific Gravity >=1.030 (1.005-1.030); Urine pH 5.5 (5.0-7.0)
[2022-03-25 15:51] LABS: Albumin 3.2 g/dL (3.4-5.0); Bilirubin Total 0.8 mg/dL (0.2-1.0); Potassium 4.4 mmol/L (3.5-5.1); Protein, Total 6.9 g/dL (6.4-8.2)
--- NOTE | 2022-03-25 16:09 | RAD REPORT ---
EXAM DESCRIPTION: CT - Stone Protocol - 03/25/2022 3:49 pm CLINICAL HISTORY: left flank pain COMPARISON: No comparisons TECHNIQUE: Axial 3 mm thick images were obtained without oral or IV contrast. The rzfxj-os-pnox span s the entirety of the system including uppermost abdomen and lung bases. All CT scans are performed using dose optimization technique as appropriate and may include automated exposure control or mA/KV adjustment according to patient size. FINDINGS: No hydronephrosis is present and no obstructing ureteral calculi. No nonobstructing calcul i at the kidneys present. There is no perinephric stranding present. No suspicious renal masses. Isod ense masses and pyelonephritis are not excluded on a stone protocol CT scan. No significant adrenal f inding. Urinary bladder is fully contracted precluding assessment. Bladder calculi not seen. Prominen t prostate gland is present. No stranding or edema in the adjacent fat. Numerous pelvic floor phlebol iths are present. Liver is abnormal in appearance. There is a prominent nodularity to the liver capsule. Hepatic parenc hyma is heterogeneous. No accurate assessment can be made for liver lesions due to the absence of con trast in the presence of the patient's right arm along his site. This creates substantial streaking a rtifact across the liver parenchyma. Patient does have at least 1 large gallstone present. No gallbla dder or thickening or edema suspected. No biliary tree dilatation. Spleen is prominent. No acute panc reatic process identifiable. No acute bowel process seen. Moderate stool volume is present filling but not dilating the colon. The appendix is normal. Sigmoid diverticulosis present without diverticulitis. No mass or bulky lymphadenopathy. Small to moderate-sized fat filled left inguinal hernia is present. No congested or edematous fat seen. No free air, free fluid or inflammatory stranding. No significant bony abnormality. Disc and bone degenerative changes are present. IMPRESSION: No hydronephrosis, obstructing calculus or acute finding identifiable. Isodense masses and pyelonephritis are not excluded on stone protocol technique. Cirrhosis or diffuse hepatic parenchymal disease is evident but not fully evaluated on this study. Th ere is no ascites present. Diverticulosis without diverticulitis. Mild low-level mucosal level inflammatory or infectious change s of the bowel could be occult on noncontrast imaging.
--- NOTE | 2022-03-25 17:35 | RAD REPORT ---
EXAM DESCRIPTION: US - Scrotum Testicles - 03/25/2022 5:20 pm CLINICAL HISTORY: scrotal pain COMPARISON: No comparisons FINDINGS: Testicular tissue is homogeneous. No intratesticular mass lesion. Doppler evaluation demon strates normal blood flow. A small 6 mm intratesticular cyst seen inferior left testicle not regarded as significant. Several small 5 mm or less right-side epididymal cysts present. A 7 mm hyperechoic focus superior to the left testicle is probably an extratesticular epididymal calcification. No varicocele, hydrocele o r other significant extra testicular finding. No hernia identified. IMPRESSION: No torsion or other emergent finding.
--- NOTE | 2022-03-25 18:20 | ER ---
Nurse's Notes [facility] Name: Fuentes Sanches Age: 71 yrs Sex: Male : 1950 Arrival Date: 03/25/2022 Time: 15:05 Bed 17 [facility] MD: Chandler Talamantes Diagnosis: Left Flank Pain Presentation: 03/25 15:08 Chief complaint: Patient states: left flank/back pain that feels like kidney stone. Pt jh5 has history of kidney stones. No fever, and pt states he is urinating okay. Coronavirus screen: Vaccine status: Patient reports receiving the 2nd dose of the covid vaccine. Client denies travel out of the [place] in the last 14 days. Ebola Screen: Patient negative for fever greater than or equal to 101.5 degrees Fahrenheit, and additional compatible Ebola Virus Disease symptoms Patient denies exposure to infectious person. Patient denies travel to an Ebola-affected area in the 21 days before illness onset. Initial Sepsis Screen: Does the patient meet any 2 criteria? No. Patient's initial sepsis screen is negative. Does the patient have a suspected source of infection? No. Patient's initial sepsis screen is negative. Risk Assessment: Do you want to hurt yourself or someone else? Patient reports no desire to harm self or others. Onset of symptoms was March 25, 2022. 15:08 Method Of Arrival: Ambulatory [facility] 15:08 Acuity: JENNIFER 3 5 Triage Assessment: 15:12 General: Appears uncomfortable, slender, well groomed, well developed, Behavior is [facility] calm, cooperative, appropriate for age. Pain: Complains of pain in back. GI: Reports flank pain. Historical: - Allergies: 15:12 No Known Allergies; jh5 - PMHx: 15:12 prostate cancer; Hypertensive disorder; Cirrhosis of liver; [facility] - Immunization history:: Adult Immunizations up to date. - Social history:: Smoking status: Patient denies any tobacco usage or history of. Screenin:14 Abuse screen: Denies threats or abuse. Denies injuries from another. Nutritional [facility] screening: No deficits noted. Tuberculosis screening: No symptoms or risk factors identified. Fall Risk None identified. Assessment: 15:24 Cardiovascular: No deficits noted. Denies chest pain, shortness of breath. Respiratory: mb8 No deficits noted. GI: Reports. : Reports pain with urination. : Reports pain in left flank(s). 15:24 GI: Abd is soft and non tender. mb8 15:26 GI: Bowel sounds present X 4 quads. mb8 16:06 Reassessment: Patient and/or family updated on plan of care and expected duration. Pain mb8 level reassessed. Patient is alert, oriented x 3, equal unlabored respirations, skin warm/dry/pink. Patient denies pain at this time. Patient states feeling better. Patient states symptoms have improved. Pain: Denies pain. 16:59 Reassessment: Patient and/or family updated on plan of care and expected duration. Pain mb8 level reassessed. Patient is alert, oriented x 3, equal unlabored respirations, skin warm/dry/pink. Patient denies pain at this time. 18:12 Reassessment: No changes from previously documented assessment. Patient and/or family mb8 updated on plan of care and expected duration. Pain level reassessed. Patient is alert, oriented x 3, equal unlabored respirations, skin warm/dry/pink. Patient denies pain at this time. Vital Signs: 15:08 BP 140 / 86; Pulse 67; Resp 16; Temp 97.9; Pulse Ox 100% ; Weight 86.18 kg; Height 5 [facility] ft. 8 in. (172.72 cm); Pain 10/10; 16:06 BP 141 / 91; Pulse 70; Resp 16; Pulse Ox 99% on R/A; Pain 0/10; mb8 17:39 BP 140 / 86; Pulse 56; Resp 16; Pulse Ox 97% on R/A; Pain 0/10; mb8 18:25 BP 133 / 83 LA Sitting (auto/lg); Pulse 70 MON; Resp 18 S; Temp 97.3(TE); Pulse Ox 100% mb8 ; Pain 0/10; 15:08 Body Mass Index 28.89 (86.18 kg, 172.72 cm) [facility] ED Course: 15:05 Patient arrived in ED. mr 15:05 Chandler Talamantes DO is Private Physician. mr 15:08 [facility] 15:08 Brett Mims DO is Attending Physician. [facility] 15:12 Lino Shelton, RN is Primary Nurse. mb8 15:12 Triage completed. jh5 15:14 Patient has correct armband on for positive identification. jh5 15:14 No provider procedures requiring assistance completed. jh5 15:20 Patient placed in an exam room, on a stretcher. ll1 15:24 Inserted saline lock: 20 gauge in right antecubital area, using aseptic technique. mb8 Blood collected. 15:51 CT Stone Protocol In Process Unspecified. EDMS 16:59 Awaiting: Ultrasound. mb8 17:01 Ultrasound. mb8 17:22 US Scrotum Testicles In Process Unspecified. EDMS 18:12 Awaiting re-evaluation by ER provider. mb8 18:27 IV discontinued, intact, bleeding controlled, No redness/swelling at site. Pressure mb8 dressing applied. Administered Medications: 15:42 Drug: morphine 4 mg Route: IVP; Infused Over: 4 mins; Site: right antecubital; mb8 16:39 Follow up: Response: No adverse reaction; Marked relief of symptoms; Pain is decreased; mb8 RASS: Alert and Calm (0) 15:42 Drug: Zofran (Ondansetron) 4 mg Route: IVP; Site: right antecubital; mb8 16:39 Follow up: Response: No adverse reaction; Marked relief of symptoms; Nausea is decreasedmb8 15:42 Drug: NS 0.9% 500 ml Route: IV; Rate: bolus; Site: right antecubital; mb8 16:38 Follow up: Response: No adverse reaction; IV Status: Completed infusion; IV Intake: mb8 500ml Medication: 18:30 VIS not applicable for this client. mb8 Intake: 16:38 IV: 500ml; Total: 500ml. mb8 Outcome: 18:19 Discharge ordered by . ly 18:29 Discharged to home ambulatory, with family. mb8 18:29 Condition: good 18:29 Discharge instructions given to patient. 18:31 Patient left the ED. mb8 Signatures: Dispatcher [employer] EDMS Henry Gary PA PA jmm Rivera, Mary Robbie La, RN RN ll1 Heike Luo RN RN jhLino Jefferson, RN RN mb8 Corrections: (The following items were deleted from the chart) 18:30 18:29 GI: Bowel sounds present X 4 quads. mb8 mb8 18:30 18:29 GI: Bowel sounds present X 4 quads. mb8 mb8
--- NOTE | 2022-03-25 18:20 | EDPHYS ---
Physician Documentation [facility] Name: Fuentes Sanches Age: 71 yrs Sex: Male : 1950 Arrival Date: 03/25/2022 Time: 15:05 Bed 17 [facility] MD: Chandler Talamantes ED Physician Brett Mims HPI: 03/25 18:16 This 71 yrs old Male presents to ER via Ambulatory with complaints of Possible Kidney jmm Stone. 18:16 Onset: The symptoms/episode began/occurred gradually, 1 day(s) ago. This is a 71 year jmm old male with a history of prostate cancer, htn, liver cirrhosis that presents to the ED with complaints of left flank pain beignning last night with radiation into his left testitcle. Denies vomiting but states having some nausea. Denies diarrhea. Pain feel similar to previous kidney stones. Denies fever. . Historical: - Allergies: 15:12 No Known Allergies; [facility] - PMHx: 15:12 prostate cancer; Hypertensive disorder; Cirrhosis of liver; [facility] - Immunization history:: Adult Immunizations up to date. - Social history:: Smoking status: Patient denies any tobacco usage or history of. ROS: 18:16 Constitutional: Negative for fever, chills, and weight loss, Cardiovascular: Negative jm for chest pain, palpitations, and edema, Respiratory: Negative for shortness of breath, cough, wheezing, and pleuritic chest pain. 18:16 Abdomen/GI: Positive for abdominal pain. 18:16 All other systems are negative. Exam: 18:16 Constitutional: This is a well developed, well nourished patient who is awake, alert, jmm and in no acute distress. Head/Face: atraumatic. Eyes: EOMI, no conjunctival erythema appreciated ENT: Moist Mucus Membranes Neck: Trachea midline, Supple Chest/axilla: Normal chest wall appearance and motion. Cardiovascular: Regular rate and rhythm. No edema appreciated Respiratory: Normal respirations, no respiratory distress appreciated 18:16 Back: Normal ROM Skin: General appearance color normal MS/ Extremity: Moves all extremities, no obvious deformities appreciated, no edema noted to the lower extremities Neuro: Awake and alert Psych: Behavior is normal, Mood is normal, Patient is cooperative and pleasant 18:16 Abdomen/GI: Inspection: abdomen appears normal, Bowel sounds: normal, Palpation: soft, mild abdominal tenderness, in the left lower quadrant. Vital Signs: 15:08 BP 140 / 86; Pulse 67; Resp 16; Temp 97.9; Pulse Ox 100% ; Weight 86.18 kg; Height 5 [facility] ft. 8 in. (172.72 cm); Pain 10/10; 16:06 BP 141 / 91; Pulse 70; Resp 16; Pulse Ox 99% on R/A; Pain 0/10; mb8 17:39 BP 140 / 86; Pulse 56; Resp 16; Pulse Ox 97% on R/A; Pain 0/10; mb8 18:25 BP 133 / 83 LA Sitting (auto/lg); Pulse 70 MON; Resp 18 S; Temp 97.3(TE); Pulse Ox 100% mb8 ; Pain 0/10; 15:08 Body Mass Index 28.89 (86.18 kg, 172.72 cm) [facility] MDM: 15:23 Patient medically screened. [facility] 18:19 Data reviewed: vital signs, nurses notes. Counseling: I had a detailed discussion with ly the patient and/or guardian regarding: the historical points, exam findings, and any diagnostic results supporting the discharge/admit diagnosis, radiology results, the need for outpatient follow up, to return to the emergency department if symptoms worsen or persist or if there are any questions or concerns that arise at home. 03/25 15:23 Order name: CBC with Diff; Complete Time: 15:49 [facility] 03/25 15:23 Order name: CMP; Complete Time: 15:58 [facility] 03/25 15:23 Order name: Lipase; Complete Time: 15:58 [facility] 03/25 15:26 Order name: CT Stone Protocol; Complete Time: 16:12 [facility] 03/25 15:48 Order name: Urine Dipstick-Ancillary; Complete Time: 15:49 [facility] 03/25 16:13 Order name: US Scrotum Testicles; Complete Time: 17:36 [facility] 03/25 15:23 Order name: IV Saline Lock; Complete Time: 15:33 [facility] 03/25 15:23 Order name: Labs collected and sent; Complete Time: 15:33 [facility] 03/25 15:26 Order name: Urine Dipstick-Ancillary (obtain specimen); Complete Time: 15:48 [facility] Administered Medications: 15:42 Drug: morphine 4 mg Route: IVP; Infused Over: 4 mins; Site: right antecubital; mb8 16:39 Follow up: Response: No adverse reaction; Marked relief of symptoms; Pain is decreased; mb8 RASS: Alert and Calm (0) 15:42 Drug: Zofran (Ondansetron) 4 mg Route: IVP; Site: right antecubital; mb8 16:39 Follow up: Response: No adverse reaction; Marked relief of symptoms; Nausea is decreasedmb8 15:42 Drug: NS 0.9% 500 ml Route: IV; Rate: bolus; Site: right antecubital; mb8 16:38 Follow up: Response: No adverse reaction; IV Status: Completed infusion; IV Intake: mb8 500ml Disposition: 18:54 Co-signature as Attending Physician, Brett Mims DO I was immediately available on-site ms3 in the Emergency Department for consultation in the care of the patient.. Disposition Summary: 03/25/22 18:19 Discharge Ordered Location: Home [facility] Condition: Stable [facility] Diagnosis - Left Flank Pain [facility] Followup: [facility] - With: Private Physician - When: 2 - 3 days - Reason: Recheck today's complaints, Continuance of care, Re-evaluation by your physician Discharge Instructions: - Discharge Summary Sheet [facility] - Flank Pain, Adult [facility] Forms: - Medication Reconciliation Form [facility] - Thank You Letter [facility] - Antibiotic Education [facility] - Prescription Opioid Use [facility] Signatures: Dispatcher [employer] Henry Lebron PA PA jmm Sims, Marcus, DO DO ms3 Heike Luo RN RN jh5 Lino Shelton RN RN mb8
[2022-03-25 19:37] VITALS: BP 133/83; TEMP 97.3; O2SAT 100
== END 2022-03-25 18:31 | disposition home or self-care (01) ==
LOC: ER 15:03
DX: R10.9 Unspecified abdominal pain (principal)
CPT/HCPCS: 85025; 36415; 81003; 83690; 80053; 76377; 74176; 76870; J7040; J2405

== ENCOUNTER 2022-05-31 11:27 | Emergency (ER) | payer OTHER ==
--- OUTSIDE RECORDS SUMMARY | 2022-05-31 11:34 | XMS REPORT | Continuity of Care Document ---
:1950 Author Organization [facility] t Address [address] [place] [address] Care Team Providers Name Role Phone [phone] Primary Care Physician Unavailable SYSTEM, PROVIDER NOT IN Attending Clinician Unavailable REYES IRWIN Attending Clinician Unavailable Reyes Irwin MD Attending Clinician MARIELENA MCGOVERN Attending Clinician Unavailable Marielena Mcgovern MD Attending Clinician Mindi Cordova Attending Clinician AYAAN BRYAN Attending Clinician Unavailable Ayaan Bryan APN Attending Clinician Tao Devi MD Attending Clinician Audelia Gonzalez MD Attending Clinician Ochoa Bales CRNA Attending Clinician Carrol Burk RN Attending Clinician Unavailable Mark Anthony Kenny Attending Clinician Heike Lara Attending Clinician Casandra Antonio MA Attending Clinician Unavailable HEIKE CARBALLO Attending Clinician Unavailable Elton MONTOYA, Ramila Kramer Attending Clinician FRANTZ RAMIREZ Attending Clinician Unavailable James MARIE, Frantz Attending Clinician Hailey MARIE, Lidia Attending Clinician Earle CALLE, Jody I Attending Clinician Unavailable Thor CORNEJO, Bianca Attending Clinician Susy Cabrera Attending Clinician Unavailable Maria C Costello Attending Clinician VALERIE JONES Attending Clinician Unavailable Valerie Jones APN Attending Clinician Abhijit MARIE, Mychal Carter Attending Clinician Sathish MARIE, Ander Azar Attending Clinician Provider, Unknown Attending Clinician Unavailable Karen Betancur Attending Clinician Mateo Castorena Attending Clinician MATEO CASTORENA Attending Clinician Unavailable Nika Davey Attending Clinician NIKA DAVEY Attending Clinician Unavailable Liam Altman Attending Clinician LIAM ALTMAN Attending Clinician Unavailable BULMARO Attending Clinician Unavailable Jonh Oscar Attending Clinician JONH OSCAR Attending Clinician Unavailable Chandler Talamantes Attending Clinician [phone] IKE QUINTERO Attending Clinician Unavailable FRANTZ RAMIREZ Admitting Clinician Unavailable Liam Altman Admitting Clinician LIAM ALTMAN Admitting Clinician Unavailable BULMARO Admitting Clinician Unavailable Payers Payer Name Policy Type Policy Number Effective Date Expiration Date S neetu [employer] [id number] 2016 00:00:00 MEDICARE PART A [id number] 2016 AND B 00:00:00 [employer] [id number] 2016 00:00:00 [place]IC[place] B-[place]: [id number] 2016 [employer] 00:00:00 MEDICARE PART A [id number] 2016 \\T\\ B 00:00:00 Problems Condition Condition Condition Status Onset Resolution Last Treating Co mments Source Name Details Category Date Date Treatment Clinician Date Malignant Malignant Disease Active Uni vers neoplasm neoplasm 03-13 ity of of of 00:00: [place] prostate prostate 00 MD [facility] SCROTUM SCROTUM Diagnosis Active 2022-02-08 Memoria SWELLING SWELLING 02-08 15:45:00 l Active 00:00: Brian 02/08/2022 00 [facility] EGD / EGD / Diagnosis Active 2022-02-06 Mem oria COLON / COLON / 01-28 07:12:00 l MAC MAC Active 00:00: Solomon durham 01/28/[address] [place] [address] DX: C61= DX: C61= Diagnosis Active 2022-01-16 Memoria MALIGNANT MALIGNANT 01-15 13:24:00 l NEOPLASM NEOPLASM 00:00: Solomon durham OF OF 00 PROSTATE PROSTATE Active 01/15/2022 [facility] XRAY XRAY Diagnosis Active 2022-01-15 Mem oria Active 01-15 14:02:00 l 01/15/2022 00:00: Solomon durham [address] [id number] Diagnosis Active 2022-01-01 Memoria ANT NANT 12-24 08:03:00 l NEOPLASM NEOPLASM 00:00: Solomon durham OF OF 00 PROSTATE PROSTATE (INC (INC Active 12/24/2021 [facility] UNK UNK Diagnosis Active 2022-02-27 Mem oria Active 12-16 09:45:00 l 12/16/2021 00:00: Solomon durham 00 [facility] PROSTATE PROSTATE Diagnosis Active 2022-01-01 Memoria CA CA Active 11-24 07:24:00 l 11/24/2021 00:00: Solomon durham 00 [facility] Hyperchole Hyperchole Problem Active S [facility] sterolemia sterolemia 2-28 Co mmuni 00:00: ty [facility] Erectile Erectile Problem Active 2020-08 [facility] dysfunctio Dysfunctio 1-18 Co mmuni n n 00:00: ty 00 [facility] Leukopenia Leukopenia Problem Active S weeny 3-02 Communi 00:00: ty 00 [facility] History of History of Problem Active S [facility] thrombocyt Thrombocyt 3-02 Co mmuni openia openia 00:00: ty 00 [facility] Prostate Prostate Problem Active 2019-08 S[facility] y specific Specific 1-17 Commun i antigen Antigen 00:00: ty abnormal Abnormal 00 [facility] Polyp of Polyp of Problem Active [facility] colon Colon 8-19 Communi 00:00: ty 00 [facility] Diverticul Diverticul Problem Active S weeny ar disease ar Disease - Co mmuni 00:00: ty 00 [facility] Essential Essential Problem Active Swe mona hypertensi Hypertensi 1-24 Co mmuni on on 00:00: ty 00 [facility] Hypertensi Hypertens Problem Resolve 2022-03-09 Memoria ve aden d 02:56:06 l disorder, disorder, Herm wade systemic systemic arterial arterial (disorder) (disorder) Resolved Problem 03/09/2022 [facility] Primary Primary Problem Active 2022-03-09 Me moria malignant malignant 02:56:06 l neoplasm neoplasm Solomon n of of prostate prostate (disorder) (disorder) Active Problem 03/09/2022 [facility] Raised Raised Problem Active 2022-03-09 Silviano chelo prostate prostate 02:56:06 l specific specific Solomon n antigen antigen (finding) (finding) Active Problem 03/09/2022 [facility] MALIGNANT MALIGNANT Diagnosis Active 2022-02-27 Memoria NEOPLASM NEOPLASM 09:45:00 l OF OF [place] PROSTATE PROSTATE Active [facility] History of Past Illness Condition Condition Condition Status Onset Resolution Last Treating Co mments Source Name Details Category Date Date Treatment Clinician Date Epididymit Epididymi Problem 2022-02-10 2022-02-10 Memoria is tis 02-09 22:39:05 22:39:05 l 02/09/2022 01:09: Solomon n 02/10/2022 00 [facility] Allergies, Adverse Reactions, Alerts Allergy Allergy Status Severity Reaction(s) Onset Inactive Treating Comm ents Source Name Type Date Date Clinician NO KNOWN Drug Active Univers ALLERGIE Class ity of S [place] [facility] Family History Family Member Diagnosis Comments Start Date Stop Date Source Natural father Cancer [facility] [place] [facility] Social History Social Habit Start Date Stop Date Quantity Comments Source Exposure to 2022-05-19 2022-05-29 Not sure [place] [facility]-CoV-2 00:00:00 09:20:00 Brodie allison (event) [facility] Alcohol intake 2022-05-07 2022-05-07 Ex-drinker [facility] 00:00:00 00:00:00 (finding) [place] MD Brendan allison [facility] Tobacco use and 2022-03-23 2022-03-23 Smokeless tobacco Un iversity of exposure 00:00:00 00:00:00 non-user [place] MD Brendan allison [facility] Social History 2022-02-04 2022-02-04 [facility] 13:30:02 13:30:02 Sex [birth year] Universit y of 00:00:00 00:00:00 [place] MD Cardona [facility] Smoking Status Start Date Stop Date Source Never smoked tobacco [facility] Medications Ordered Filled Start Stop Current Ordering Indication Dosage Frequency Signature Comments Components Source Medication Medication Date Date Medication? Clinician (SIG) Name Name zolpidem 2021-08 Yes 5mg Take 5 mg Univ ers (AMBIEN) 10 0-21 by mouth ity of mg tablet 09:25: at [place] 55 bedtime. MD Sara durham [facility] pantoprazol 2021-08 Yes 40mg Take 40 mg Univers e 0-21 by mouth. ity of (PROTONIX) 09:25: [place] 40 mg EC 55 tablet Sara [facility] ciprofloxac Yes Malignant 500mg Take 1 Univers in HCl 9-30 neoplasm of tablet ity of (Cipro) 500 00:00: prostate (500 mg) [place] mg tablet 00 by mouth twice Sara daily. [facility] peg 2021- No Colonoscopy 4000mL Take 4,000 Univers 3350-electr 8-30 08-31 planned mL by ity of olytes 00:00: 04:59 [place] ([place]) 00 :00 for 1 236-22.74-6 dose. Use And erso .74 g as n solution directed Cancer by Center ordering provider. zolpidem 2021-0 Yes 10mg Take 10 mg Uni vers (AMBIEN) 10 8-15 by mouth ity of mg tablet 08:40: at [place] 15 bedtime. MD [facility] Levaquin 2-0 Yes 500 mg = 1 Mem oria 500 mg oral 7-04 tab, PO, l tablet 01:14: Q24H, X 10 Shruthi nn 00 day, # 10 tab, 0 Refill(s), Pharmacy: [id number], 170.18, cm, 02/08/22 15:05:00 CDT, Height, 81.818, kg, 02/08/22 15:05:00 CDT, Weight Levaquin 2-0 Yes 500 mg = 1 Mem oria 500 mg oral 7-04 tab, PO, l tablet 01:14: Q24H, X 10 Shruthi nn 00 day, # 10 tab, 0 Refill(s), Pharmacy: [id number], 170.18, cm, 02/08/22 15:05:00 CDT, Height, 81.818, kg, 02/08/22 15:05:00 CDT, Weight Levaquin 2021-0 Yes 500 mg = 1 Mem oria 500 mg oral 7-04 tab, PO, l tablet 01:09: Q24H, X 10 Shruthi nn 00 day, # 10 tab, 0 Refill(s), Pharmacy: [facility] [id number], 170.18, cm, 02/08/22 15:05:00 CDT, Height, 81.818, kg, 02/08/22 15:05:00 CDT, Weight Levaquin 2-0 Yes 500 mg = 1 Mem oria 500 mg oral 7-04 tab, PO, l tablet 01:09: Q24H, X 10 Shruthi nn 00 day, # 10 tab, 0 Refill(s), Pharmacy: [facility] [id number], 170.18, cm, 02/08/22 15:05:00 CDT, Height, 81.818, kg, 02/08/22 15:05:00 CDT, Weight levofloxaci 2021-0 No Notes: Do M emoria n 7-04 not give l 01:06: w/antacids Brian 00 , dairy pdt & minerals Take 1 hr before or 2 hr after dairy pdt (Same as:Levaqui n) levofloxaci 2021-0 No Notes: Do M emoria n 7-04 not give l 01:06: w/antacids Brian 00 , dairy pdt & minerals Take 1 hr before or 2 hr after dairy pdt (Same as:Levaqui n) carvedilol 2021-0 No 3.125 mg, Me moria 02-07 Route: PO, l 02:00: Drug form: Brian 00 TAB, Q12H, Dosing Weight 87.273, kg, Start date: 02/06/22 21:00:00 CDT, Duration: 30 day, Stop date: 03/08/22 9:00:00 CDT carvedilol 2021-0 No 3.125 mg, Me moria 02-07 Route: PO, l 02:00: Drug form: Brian 00 TAB, Q12H, Dosing Weight 87.273, kg, Start date: 02/06/22 21:00:00 CDT, Duration: 30 day, Stop date: 03/08/22 9:00:00 CDT carvedilol 2021-0 Yes 3.125 mg, Me moria 3.125 mg 7-01 PO, Q12H, l oral tablet 14:20: # 60 tab, H ermann 00 2 Refill(s), Pharmacy: [facility] [id number], 172.72, cm, 02/04/22 8:28:00 CDT, Height, 87.273, kg, 02/04/22 8:28:00 CDT, Weight carvedilol 2021-0 Yes 3.125 mg, Me moria 3.125 mg 7-01 PO, Q12H, l oral tablet 14:20: # 60 tab, H ermann 00 2 Refill(s), Pharmacy: [facility] [id number], 172.72, cm, 02/04/22 8:28:00 CDT, Height, 87.273, kg, 02/04/22 8:28:00 CDT, Weight Carafate 1 2021-0 Yes 1 gm = 10 Me moria g/10 mL 7-01 ml, PO, l oral 14:19: QID-Before Brian suspension 00 Meals, # 200 mL, 0 Refill(s), Pharmacy: [facility] [id number], 172.72, cm, 02/04/22 8:28:00 CDT, Height, 87.273, kg, 02/04/22 8:28:00 CDT, Weight Carafate 1 2021-0 Yes 1 gm = 10 Me moria g/10 mL 7-01 ml, PO, l oral 14:19: QID-Before [place] suspension 00 Meals, # 200 mL, 0 Refill(s), Pharmacy: [facility] [id number], 172.72, cm, 02/04/22 8:28:00 CDT, Height, 87.273, kg, 02/04/22 8:28:00 CDT, Weight pantoprazol 0 Yes 40 mg = 1 M emoria e 40 mg 7-01 tab, PO, l oral 14:18: Daily, # [place] enteric 00 90 tab, 1 coated Refill(s), tablet Pharmacy: [facility] [id number], 172.72, cm, 02/04/22 8:28:00 CDT, Height, 87.273, kg, 02/04/22 8:28:00 CDT, Weight pantoprazol 0 Yes 40 mg = 1 M emoria e 40 mg 7-01 tab, PO, l oral 14:18: Daily, # [place] enteric 00 90 tab, 1 coated Refill(s), tablet Pharmacy: [facility] [id number], 172.72, cm, 02/04/22 8:28:00 CDT, Height, 87.273, kg, 02/04/22 8:28:00 CDT, Weight Sodium 2021-0 No 1,000 mL, Memori a Chloride 02-06 Rate: 75 l 0.9% IV 13:02: ml/hr, [place] 1000 mL 00 Infuse over: 13.3 hr, Route: IV, Dosing Weight 87.273 kg, Total Volume: 1,000, Start date: 02/06/22 8:02:00 CDT, Duration: 30 day, Stop date: 03/08/22 8:01:00 CDT, BSA: 2.07 m2 Sodium 2021-0 No 1,000 mL, Memori a Chloride 7 Rate: 75 l 0.9% IV 13:02: ml/hr, [place] 1000 mL 00 Infuse over: 13.3 hr, Route: IV, Dosing Weight 87.273 kg, Total Volume: 1,000, Start date: 02/06/22 8:02:00 CDT, Duration: 30 day, Stop date: 03/08/22 8:01:00 CDT, BSA: 2.07 m2 tadalafil 5 2021-0 Yes 5 mg = 1 Me moria mg oral 4-25 tab, PO, l tablet 19:28: Daily, # [place] 00 90 tab, 3 Refill(s), Pharmacy: [facility] [id number], 172.72, cm, 12/01/21 13:43:00 CDT, Height, 88.722, kg, 12/01/21 13:43:00 CDT, Weight tadalafil 5 2021-0 Yes 5 mg = 1 Me moria mg oral 4-25 tab, PO, l tablet 19:28: Daily, # [place] 00 90 tab, 3 Refill(s), Pharmacy: [facility] [id number], 172.72, cm, 12/01/21 13:43:00 CDT, Height, 88.722, kg, 12/01/21 13:43:00 CDT, Weight Sulfamethox 2021-0 Yes 1 tab, PO, Memoria azole 800 1-31 BID, Start l MG / 16:47: the day [place] Trimethopri 00 before m 160 MG procedure, Oral Tablet X 3 day, # [Bactrim] 6 tab, 0 Refill(s), Pharmacy: [facility] [id number], 172.72, cm, 09/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, Height, 82.727, kg, 09/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, Weight Fleet Enema 2021-0 Yes 1 ea, [place], M emoria rectal 1-31 ONCE, l 16:47: Morning of Brian procedure, # 118 mL, 0 Refill(s), Pharmacy: [facility] [id number], 172.72, cm, 09/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, Height, 82.727, kg, 09/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, Weight Sulfamethox 2021-0 Yes 1 tab, PO, Memoria azole 800 1- BID, Start l MG / 16:47: the day [place] Trimethopri 00 before m 160 MG procedure, Oral Tablet X 3 day, # [Bactrim] 6 tab, 0 Refill(s), Pharmacy: [facility] [id number], 172.72, cm, 09/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 Avoid taking after fatty meal, # 10 tab, 1 Refill(s), Pharmacy: [facility] [id number], If not available through insurance please provide patient with [place]... tadalafil 2021-0 Yes 10 mg = 1 Mem oria 10 mg oral 1-11 tab, PO, l tablet 20:33: Daily, PRN Shruthi nn 00 for erectile dysfunctio n, Take 30 minutes prior to intercouse . Avoid taking after fatty meal, # 10 tab, 1 Refill(s), Pharmacy: [facility] [id number], If not available through insurance please provide patient with [place]... tadalafil 2021-0 Yes 10mg Take 10 mg Un kayla (CIALIS) 10 1-11 by mouth ity of mg tablet 00:00: daily. [place] [id number] MD [facility] tadalafil 2021-0 Yes 10mg Take 10 mg Un kayla (CIALIS) 10 1-11 by mouth ity of mg tablet 00:00: daily. MD Sara durham [facility] tadalafil No 10 mg = 1 Mem oria 10 mg oral 1-10 tab, PO, l tablet 19:04: Daily, PRN Shruthi nn 00 for erectile dysfunctio n, Take 30 minutes prior to intercouse . Avoid taking after fatty meal, # 10 tab, 1 Refill(s), Pharmacy: [id number], If not available through insurance please provide patient with [place] wit... tadalafil No 10 mg = 1 Mem oria 10 mg oral 1-10 tab, PO, l tablet 19:04: Daily, PRN Shruthi nn 00 for erectile dysfunctio n, Take 30 minutes prior to intercouse . Avoid taking after fatty meal, # 10 tab, 1 Refill(s), Pharmacy: [id number], If not available through insurance please provide patient with [place] wit... lisinopril 2021-0 Yes 0 Memoria 2.5 mg oral 1-10 Refill(s) l tablet 18:25: lisinopril 2021-0 Yes 0 Memoria 2.5 mg oral 1-10 Refill(s) l tablet 18:25: Brian 00 lisinopril 2021-0 Yes 2.5mg Take 2.5 Un kayla (PRINIVIL,Z 1-10 mg by ity of ESTRIL) 2.5 00:00: mouth [place] mg tablet 00 daily. MD Sara durham [facility] lisinopril Yes 2.5mg Take 2.5 Un kayla (PRINIVIL,Z 1-10 mg by ity of ESTRIL) 2.5 00:00: mouth [place] mg tablet 00 daily. MD [facility] lisinopril lisinopril No lisinopril [place] 2.5 mg 2.5 mg 2.5 mg Communi tablet TAKE tablet TAKE tablet ty 1 TABLET BY 1 TABLET BY TAKE 1 Hospita MOUTH ONCE MOUTH ONCE TABLET BY l DAILY DAILY MOUTH ONCE Clinics DAILY tadalafil tadalafil No tadalafil [place] 10 mg 10 mg 10 mg Communi tablet TAKE tablet TAKE tablet ty 1 TABLET BY 1 TABLET BY TAKE 1 Hospita MOUTH ONCE MOUTH ONCE TABLET BY l DAILY 30 DAILY 30 MOUTH ONCE C linjaye MINUTES MINUTES DAILY 30 PRIOR TO PRIOR TO MINUTES INTERCOURSE INTERCOURSE PRIOR TO NEEDED NEEDED INTERCOURS FOR FOR E ERECTILE ERECTILE NEEDED FOR DYSFUNCTION DYSFUNCTION ERECTILE - AVOID - AVOID DYSFUNCTIO TAKING TAKING N - AVOID AFTER FATTY AFTER FATTY TAKING MEAL MEAL AFTER FATTY MEAL lisinopril lisinopril No lisinopril [place] 5 mg tablet 5 mg tablet 5 mg C ommuni TAKE 1 TAKE 1 tablet ty TABLET BY TABLET BY TAKE 1 Hos josh MOUTH ONCE MOUTH ONCE TABLET BY l DAILY DAILY MOUTH ONCE Clinics DAILY lisinopril lisinopril No lisinopril [place] 5 mg tablet 5 mg tablet 5 mg C ommuni Take 1 Take 1 tablet ty tablet by tablet by Take 1 Hos josh mouth once mouth once tablet by l daily daily mouth once Clinics daily lisinopril lisinopril No 1 Q1D lisinopril [place] 2.5 mg 2.5 mg 2.5 mg Communi tablet Take tablet Take tablet ty 1 tablet 1 tablet Take 1 Hospi ta every day every day tablet l by oral by oral every day Clin ics route. route. by oral route. lisinopril lisinopril No 1 Q1D lisinopril [place] 2.5 mg 2.5 mg 2.5 mg Communi tablet Take tablet Take tablet ty 1 tablet 1 tablet Take 1 Hospi ta every day every day tablet l by oral by oral every day Clin ics route. route. by oral route. Immunizations Ordered Immunization Filled Immunization Date Status Commen ts Source Name Name [id number]-2021-11-12 Completed Silviano mima [id number] 00:00:00 [id number] Completed Silviano mima [id number] 00:00:00 [id number] Completed Silviano mima [id number] 00:00:00 [id number] Completed Silviano rial Brian [id number] 00:00:00 Influenza, Influenza, 2021-06-26 Completed [place] [facility] injectable, MDCK, injectable, MDCK, 09:48:00 Hospital Clinics preservative free, preservative free, quadrivalent quadrivalent Influenza, Influenza, 2021-06-26 Completed [place] [facility] ty injectable, MDCK, injectable, MDCK, 09:48:00 Hospital Clinics preservative free, preservative free, quadrivalent quadrivalent Influenza, Influenza, 2021-06-26 Completed [place] [facility] ty injectable, MDCK, injectable, MDCK, 09:48:00 Hospital Clinics preservative free, preservative free, quadrivalent quadrivalent [id number] 2020-10-08 Completed Silviano mima Torres [id number] 00:00:00 [id number] 2020-10-08 Completed Silviano mima Torres [id number] 00:00:00 [id number] 2020-09-17 Completed Silviano mima Torres [id number] 00:00:00 [id number] 2020-09-17 Completed Silviano mima Torres [id number] 00:00:00 Vital Signs Vital Name Observation Time Observation Value Comments Source BP Diastolic 2021-10-06 00:00:00 74 mm[Hg] [facility] Height 2021-10-06 00:00:00 70 [in_i] [facility] BMI (Body Mass 2021-10-06 00:00:00 28.3 kg/m2 [facility] s BP Systolic 2021-10-06 00:00:00 118 mm[Hg] [facility] Body Weight 2021-10-06 00:00:00 3152 [oz_av] [facility] BP Diastolic 2021-08-05 00:00:00 82 mm[Hg] [facility] Height 2021-08-05 00:00:00 70 [in_i] [facility] BMI (Body Mass 2021-08-05 00:00:00 28.1 kg/m2 [place] [facility] s BP Systolic 2021-08-05 00:00:00 132 mm[Hg] [facility] Body Weight 2021-08-05 00:00:00 3136 [oz_av] [facility] s BP Diastolic 2021-06-26 00:00:00 82 mm[Hg] [facility] s Height 2021-06-26 00:00:00 70 [in_i] [facility] BMI (Body Mass 2021-06-26 00:00:00 28 kg/m2 [place] [facility]) [facility] BP Systolic 2021-06-26 00:00:00 116 mm[Hg] [facility] Body Weight 2021-06-26 00:00:00 3120 [oz_av] [facility] s BP Diastolic 2020-10-01 00:00:00 78 mm[Hg] [facility] Height 2020-10-01 00:00:00 70 [in_i] [facility] BMI (Body Mass 2020-10-01 00:00:00 27.6 kg/m2 [facility]) [facility] s BP Systolic 2020-10-01 00:00:00 118 mm[Hg] [facility] s Body Weight 2020-10-01 00:00:00 3080 [oz_av] [facility] s Systolic blood 2022-05-07 15:00:00 135 mm[Hg] [facility]iver sity of [facility] Diastolic blood 2022-05-07 15:00:00 85 mm[Hg] Unive rsity of pressure [facility] Heart rate 2022-05-07 15:00:00 61 /min [facility] Body temperature 2022-05-07 15:00:00 [facility].89 [facility] Respiratory rate 2022-05-07 15:00:00 18 /min Univ ersity of [facility] Oxygen saturation in 2022-05-07 15:00:00 96 /min [facility] of Arterial blood by [facility] P[facility] oxim[facility] BMI 2022-05-07 12:11:00 27.76 kg/m2 Universi ty of [facility] Body weight 2022-05-07 12:11:00 82.8 kg Universi ty of [facility] Body weight 2022-03-23 14:00:00 84.5 kg Universi ty of [facility] BMI 2022-03-23 14:00:00 28.33 kg/m2 [facility]i ty of [facility] Body height 2022-03-23 14:00:00 172.7 cm Universi ty of [facility] Systolic blood 2022-03-23 13:35:13 147 mm[Hg] Univer sity of pressure [facility] Diastolic blood 2022-03-23 13:35:13 76 mm[Hg] Unive rsity of pressure [facility] Heart rate 2022-03-23 13:35:13 76 /min Universi ty of [facility] Body temperature 2022-03-23 13:35:13 36.39 [facility] Univ ersity of [facility] Respiratory rate 2022-03-23 13:35:13 20 /min Univ ersity of [facility] Oxygen saturation in 2022-03-23 13:35:13 94 /min University of Arterial blood by Brodie cabralon Pulse oximetry [facility] Height 2022-03-06 15:01:00 172.72 cm [facility] Weight 2022-03-06 15:01:00 [facility] BMI Calculated 2022-03-06 15:01:00 Ivory Villaltaann Height 2022-02-08 20:05:00 170.18 cm [facility] BMI Calculated 2022-02-08 20:05:00 Ivory iglesias [place] Weight 2022-02-08 [facility]:05:[facility] 2022-02-08 20:05:00 Silviano rial Brian Diastolic (mm Hg) 2022-02-08 20:05:00 Mem orial Brian Heart Rate 2022-02-08 20:05:00 [facility] [place] Respitory Rate 2022-02-08 20:05:00 Memori al Brian Temperature Oral (F) 2022-02-08 20:05:00 97.9 F [facility] Respitory Rate 2022-02-06 14:47:00 Memori al Brian Systolic (mm Hg) 2022-02-06 14:47:00 Silviano rial Brian Diastolic (mm Hg) 2022-02-06 14:47:00 Mem orial [place] Respitory Rate 2022-02-06 14:32:00 Memori al [place] Systolic (mm Hg) 2022-02-06 14:32:00 Silviano rial Brian Diastolic (mm Hg) 2022-02-06 14:32:00 Mem orial [place] Respitory Rate 2022-02-06 14:17:00 Memori al Brian Systolic (mm Hg) 2022-02-06 14:17:00 Silviano rial [place] Diastolic (mm Hg) 2022-02-06 14:17:00 Mem orial [place] Height 2022-02-04 13:28:00 172.72 cm Memorial [facility] Weight 2022-02-04 13:28:00 [facility] BMI Calculated 2022-02-04 13:28:00 [facility] Height 2022-01-15 16:27:00 172.72 cm [facility] Weight 2022-01-15 16:27:00 [facility] BMI Calculated 2022-01-15 16:27:00 [facility] Height 2021-12-24 15:48:00 172.72 cm [facility] Weight 2021-12-24 15:48:00 [facility] BMI Calculated 2021-12-24 15:48:00 [facility] Height 2021-12-01 18:43:00 172.72 cm [facility] Weight 2021-12-01 18:43:00 [facility] BMI Calculated 2021-12-01 18:43:00 [facility] [place] Height 2021-12-01 13:51:00 172.72 cm [facility] Systolic (mm Hg) 2021-12-01 13:51:00 Silviano rial [place] Diastolic (mm Hg) 2021-12-01 13:51:00 Mem [facility] [place] Heart Rate 2021-12-01 13:51:00 [facility] Respitory Rate 2021-12-01 13:51:00 [facility] [place] Weight 2021-12-01 13:51:00 [facility] BMI Calculated 2021-12-01 13:51:00 [facility] [place] Height 2021-09-08 14:21:00 172.72 cm [facility] Weight 2021-09-08 14:21:00 [facility] BMI Calculated 2021-09-08 14:21:00 [facility] Heart Rate 2021-08-18 18:21:00 [facility] Systolic (mm Hg) 2021-08-18 18:21:00 Silviano rial [place] Diastolic (mm Hg) 2021-08-18 18:21:00 Mem orial [place] Height 2021-08-18 18:21:00 172.72 cm [facility] Weight 2021-08-18 18:21:00 [facility] BMI Calculated 2021-08-18 18:21:00 [facility] Procedures Procedure Date / Time Performing Clinician Source Performed EKG, 12-LEAD (PORTABLE) 2022-05-08 00:00:00 Audelia Gonzalez [facility] IR PLACEMENT OF 2022-05-07 14:04:55 Ayaan Bryan [facility] INTERSTITIAL DEVICE FOR MD Card[facility] PROSTATE XRT Center IR TRANSPERINEAL PLACEMENT 2022-05-07 14:04:55 Luis Bryan [facility] BIODEGRADABLE MATERIAL [facility] CONFIRM ABORH TYPE 2022-05-06 15:20:00 Heike Carballo [facility] COMPLETE BLOOD COUNT W/ 2022-05-06 15:11:00 Heike Carballo [facility] DIFFERENTIAL [facility] CHLORIDE LEVEL 2022-05-06 15:11:00 Heike Carballo [facility] SODIUM LEVEL 2022-05-06 15:11:00 Heike Carballo [facility] POTASSIUM LEVEL 2022-05-06 15:11:00 Heike Carballo [facility] SERUM CREATININE 2022-05-06 15:11:00 Heike Carballo Univer sity [facility] BLOOD UREA NITROGEN 2022-05-06 15:11:00 Heike Carballo Uni versity [facility] GLUCOSE, RANDOM 2022-05-06 15:11:00 Heike Carballo [facility] CARBON DIOXIDE LEVEL 2022-05-06 15:11:00 [facility] TESTOSTERONE LEVEL 2022-05-06 15:11:00 [facility] PROSTATE SPECIFIC ANTIGEN 2022-05-06 15:11:00 Heike Carballo [facility] PROTHROMBIN TIME 2022-05-06 15:11:00 Heike Carballo [facility] sitalden [facility] TYPE AND SCREEN 2022-05-06 15:11:00 Heike Carballo [facility] Results CBC 2022-05-06 15:11:00 Heike Carballo [facility] MANUAL DIFFERENTIAL 2022-05-06 15:11:00 [facility] SERUM CREATININE 2022-05-06 15:11:00 [facility]ballo [facility] .GLOMERULAR FILTRATION RATE 2022-05-06 15:11:00 Celina Carballo [facility] ABORH 2022-05-06 15:11:00 Heike Carballo [facility] ANTIBODY SCREEN 2022-05-06 15:11:00 Finkelman, Heike E [facility] ANION GAP 2022-05-06 15:11:00 Heike Carballo [facility] CLOT EXPIRATION DATE 2022-05-06 15:11:00 [facility] TMP INTERPRETATION ANTIBODY 2022-05-06 15:11:00 Celina Carballo [facility] SCREEN NEGATIVE [facility] COVID-19 (SARS-COV-2) 2022-05-06 15:08:00 Heike Carballo [facility] PCR-ASYMPTOMATIC [facility] PATHOLOGY BIOPSY 2022-04-21 17:47:00 Frantz Ramirez [facility] INTERPRETATION [facility] DIAGNOSTIC FLEXIBLE 2022-04-21 17:11:00 Frantz Ramirez [facility] COLONOSCOPY PROXIMAL TO [facility]EN[facility] FLEXURE Center COVID-19 (SARS-COV-2) 2022-04-21 14:35:00 Frantz Ramirez [facility] ASYMPTOMATIC-LT [facility] DIAGNOSTIC FLEXIBLE 2022-04-15 15:20:00 Benny Diaz [facility] COLONOSCOPY PROXIMAL TO [facility] SPLENIC FLEXURE Center MRI PELVIS W WO CONTRAST 2022-03-23 19:59:52 Valerie Jones [facility] COMPLETE BLOOD COUNT W/ 2022-03-23 13:45:00 Valerie Jones [facility] DIFFERENTIAL [facility] LACTATE DEHYDROGENASE 2022-03-23 13:45:00 [facility] PROSTATE SPECIFIC ANTIGEN 2022-03-23 13:45:00 Valerie Jones [facility] TESTOSTERONE LEVEL 2022-03-23 13:45:00 Valerie Jones [facility] COMPREHENSIVE METABOLIC 2022-03-23 13:45:00 Valerie Jones [facility] PANEL [facility] VITAMIN D 25 HYDROXY LEVEL 2022-03-23 13:45:00 Valerie Jones [facility] PTH INTACT 2022-03-23 13:45:00 Valerie Jones [facility] MAGNESIUM LEVEL 2022-03-23 13:45:00 Valerie Jones [facility] PHOSPHORUS LEVEL 2022-03-23 13:45:00 Valerie Jones [facility] Results CBC 2022-03-23 13:45:00 Valerie Jones [facility] MANUAL DIFFERENTIAL 2022-03-23 13:45:00 Valerie Jones [facility] GLUCOSE LEVEL 2022-03-23 13:45:00 Valerie Jones [facility] BLOOD UREA NITROGEN 2022-03-23 13:45:00 Valerie Jones [facility] ELECTROLYTE PANEL 2022-03-23 13:45:00 Valerie Jones [facility] SERUM CREATININE 2022-03-23 13:45:00 Valerie Jones [facility] .GLOMERULAR FILTRATION RATE 2022-03-23 13:45:00 Valerie Jones [facility] CALCIUM LEVEL TOTAL 2022-03-23 13:45:00 Valerie Jones [facility] ALBUMIN LEVEL 2022-03-23 13:45:00 Valerie Jones [facility] ALKALINE PHOSPHATASE 2022-03-23 13:45:00 Valerie Jones [facility] ALANINE AMINOTRANSFERASE 2022-03-23 13:45:00 Valerie Jones [facility] ASPARTATE AMINOTRANSFERASE 2022-03-23 13:45:00 Valerie Jones [facility] TOTAL PROTEIN 2022-03-23 13:45:00 Valerie Jones [facility] Center FRACTIONATED BILIRUBIN 2022-03-23 13:45:00 Valerie Jones Un iversity [facility] OSI US TESTICULAR 2022-02-08 22:20:00 Physician, Outside [facility] OSI SHOULDER 2022-01-16 01:20:00 Chandler Talamantes [facility] OSI FOOT 2022-01-16 01:19:00 Chandler Talamantes [facility] OSI BONE SCAN 2022-01-02 01:19:00 Chandler Talamantes [facility] OSI CHEST 2022-01-02 01:18:00 Chandler Talamantes [facility] OSI CT ABDOMEN AND PELVIS 2022-01-02 01:18:00 Chandler Talamantes [facility] Cystourethroscopy (separate 2021-12-24 16:24:00 [facility] procedure) Biopsy, prostate; needle or 2021-10-14 22:18:00 [facility] punch, single or multiple, any approach PATHOLOGY OUTSIDE 2021-10-14 00:00:00 Ander Bower [facility] INTERPRETATION [facility] Cataract surgery of right [facility] eye Colonoscopy [facility] EYE [facility] Plan of Care Planned Activity Planned Date Details Comments Source Future Scheduled Test 2022-05-29 COVID-19 Vaccination [facility] 09:29:46 (3 - Pfizer risk MD Jose A Cancer series) [code = Center COVID-19 Vaccination (3 - Pfizer risk series)] Future Scheduled Test 2022-03-25 COVID-19 Vaccination [facility] 09:45:56 (3 - Booster for MD Jose A Cancer Pfizer series) [code Center = COVID-19 Vaccination (3 - Booster for Pfizer series)] Diagnostic Test 2021-08-05 testosterone, free + [facility] Pending 00:00:00 total, serum [code = [facility] testosterone, free + total, serum] Diagnostic Test 2021-08-05 PSA, free, serum or [facility] Pending 00:00:00 plasma [code = PSA, Hospital Clinics free, serum or plasma] Future Appointment 2022-06-30 Ebenezer Kim [facility] 00:00:00 Jair N Vicente; [facility] [address], [place] [address] Encounters Start End Encounter Admission Attending Care Care Encounter Source Date/Time Date/Time Type Type Clinicians Facility Department ID 2022-05-08 Outpatient [facility] CHRIS [id number] 08:14:25 Sara durham 2022-03-10 Outpatient [facility] CHRIS PEREZ [id number] 14:49:26 PROVIDER Errol druham 2022-02-27 Outpatient [facility] [id number] [place] 09:44:04 [id number] [facility] 2022-02-08 Outpatient [facility] [id number] [place] 15:38:45 [id number] [facility] 2022-05-29 2022-05-29 Outpatient [facility] [id number] 10:30:00 10:30:00 Errol durham 2022-05-29 2022-05-29 [facility] Fernando Reyes 1.2.840.1 [id number] [facility] 10:30:00 10:30:00 Encounter 32565.1.1 it y of 3.412.2.7 [place] .3.786742 .8 [facility] 2022-05-29 2022-05-29 Outpatient [facility] [id number] 09:21:43 09:21:43 Errol durham 2022-05-29 2022-05-29 [facility] Reyes Irwin 1.2.840.1 [id number] [facility] 09:21:43 09:21:43 Encounter 31323.1.1 it y of 3.412.2.7 [place] .3.037011 .8 [facility] 2022-05-29 2022-05-29 Travel 1.2.840.1 1.2.870.706 [id number] [facility] 00:00:00 00:00:00 84988.1.1 350.1.13.41 ity of 3.412.2.7 [place]7.3.698 [place]3.3857[place] 084.8 MD [facility] 2022-05-28 2022-05-28 Outpatient [facility] [id number] 09:30:00 23:59:00 Errolallyssa durham 2022-05-28 [facility]22-05-28 [facility] 1.2.840.1 [id number] Univers 09:30:00 23:59:00 Encounter 87495.1.1 it y of 3.412.2.7 [place] .3.947228 MD [facility] 2022-05-28 2022-05-28 Travel 1.2.840.1 1.2.528.070 [id number] Univers 00:00:00 00:00:00 34526.1.1 350.1.13.41 ity of 3.412.2.7 [place].7.3.698 [place]3.911311 084.8 MD [facility] 2022-05-27 2022-05-27 Outpatient [facility] [id number] 09:37:01 23:59:00 Errolallyssa durham 2022-05-27 2022-05-27 [facility] Reyes Irwin 1.2.840.1 [id number] [facility] 09:37:01 23:59:00 Encounter 62211.1.1 it y of 3.412.2.7 [place] .3.683642 MD [facility] 2022-05-27 2022-05-27 Travel 1.2.840.1 1.2.164.759 [id number] Univers 00:00:00 00:00:00 79668.1.1 350.1.13.41 ity of 3.412.2.7 2.[place].7.3.698 [place]3.179952 084.8 MD [facility] 2022-05-26 2022-05-26 Outpatient [facility] [id number] 09:09:27 23:59:00 [facility] 2022-05-26 2022-05-26 [facility] Reyes Irwin 1.2.840.1 [id number] Univers 09:09:27 23:59:00 Encounter 89275.1.1 it y of 3.412.2.7 [place] .3.718296 MD Kim8 [facility] 2022-05-26 2022-05-26 Travel 1.2.840.1 1.2.823.274 [id number] Univers 00:00:00 00:00:00 07249.1.1 350.1.13.41 ity of 3.412.2.7 [place]7.3.698 [place] .3.729798 084.8 MD Kim8 [facility] 2022-05-25 2022-05-25 Outpatient [facility] [id number] [place] 08:31:40 23:59:00 [facility] 2022-05-25 2022-05-25 [facility] Reyes Irwin 1.2.840.1 [id number] [facility] 08:31:40 23:59:00 Encounter 00315.1.1 it y of 3.412.2.7 [place] .3.171172 MD Kim8 [facility] 2022-05-25 2022-05-25 Travel 1.2.840.1 1.2.060.299 [id number] Univers 00:00:00 00:00:00 58921.1.1 350.1.13.41 ity of 3.412.2.7 [place]7.3.698 [place] .3.262426 084.8 MD Kim8 [facility] 2022-05-22 2022-05-22 Outpatient [facility] [id number] 10:23:14 23:59:00 [facility] 2022-05-22 2022-05-22 [facility] Reyes Irwin 1.2.840.1 [id number] Univers 10:23:14 23:59:00 Encounter 48075.1.1 it y of 3.412.2.7 [place] .3.869256 MD Kim8 [facility] 2022-05-22 2022-05-22 Outpatient MARIELENA DAVIS [facility] MDA [id number] 08:55:02 10:22:00 [facility] 2022-05-22 2022-05-22 [facility] Marielena Mcgovern 1.2.840.1 [id number] [facility] [place] [facility] 08:55:02 10:22:00 Encounter 26975.1.1 it y of 3.412.2.7 [place] .3.888162 MD Kim8 [facility] 2022-05-22 2022-05-22 Travel 1.2.840.1 1.2.047.102 [id number] Univers 00:00:00 00:00:00 39143.1.1 350.1.13.41 ity of 3.412.2.7 [place].7.3.698 [place] .3.194656 084.8 MD [facility] 2022-05-21 2022-05-21 Outpatient REYES KINSEY [facility] MDA [id number] 09:29:28 23:59:00 [facility] 2022-05-21 2022-05-21 [facility] Reyes Irwin 1.2.840.1 [id number] [facility] [place] [facility] 09:29:28 23:59:00 Encounter 30037.1.1 it y of 3.412.2.7 [place] .3.261450 MD [facility] 2022-05-21 2022-05-21 Travel 1.2.840.1 1.2.173.979 [id number] Univers 00:00:00 00:00:00 70472.1.1 350.1.13.41 ity of 3.412.2.7 2.[place].7.3.698 [place]3.928579 084.8 MD [facility] 2022-05-20 2022-05-20 Outpatient REYES KINSEY [facility] MDA [id number] 09:27:32 23:59:00 [facility] 2022-05-20 2022-05-20 [facility] Reyes Irwin 1.2.840.1 [id number] Univers 09:27:32 23:59:00 Encounter 62893.1.1 it y of 3.412.2.7 [place] .3.684571 MD [facility] 2022-05-20 2022-05-20 Travel 1.2.840.1 1.2.418.941 0486 [id number] Univers 00:00:00 00:00:00 37018.1.1 350.1.13.41 ity of 3.412.2.7 [place].7.3.698 [place] .3.919396 084.8 MD [facility] 2022-05-19 2022-05-19 Outpatient [facility] [id number] [place] 10:13:10 23:59:00 [facility] 2022-05-19 2022-05-19 [facility] Reyes Irwin 1.2.840.1 [id number] [facility] [place] [facility] 10:13:10 23:59:00 Encounter 79048.1.1 it y of 3.412.2.7 [place] .3.840551 MD [facility] 2022-05-19 2022-05-19 Travel 1.2.840.1 1.2.425.826 [id number] Univers 00:00:00 00:00:00 34169.1.1 350.1.13.41 ity of 3.412.2.7 2.[place].7.3.698 [place]3.644739 084.8 MD [facility] 2022-05-18 2022-05-18 Documentat Reyes Irwin 1.2.840.1 [id number] Univers 00:00:00 00:00:00 ion 24920.1.1 ity of 3.412.2.7 [place] .3.237552 MD [facility] 2022-05-14 2022-05-14 Documentat Art, 1.2.840.1 [id number] Univers 00:00:00 00:00:00 ion Mindi S 42438.1.1 ity of 3.412.2.7 [place] .3.925804 .8 [facility] 2022-05-11 2022-05-11 Outpatient [facility] [id number] 12:45:00 23:59:00 [facility] 2022-05-11 2022-05-11 [facility] Reyes Irwin 1.2.840.1 [id number] [facility] [place] [facility] 12:45:00 23:59:00 Encounter 28585.1.1 it y of 3.412.2.7 [place] .3.003515 .8 [facility] 2022-05-08 2022-05-08 Outpatient [facility] [id number] 08:16:05 23:59:00 [facility] 2022-05-08 2022-05-08 [facility] Reyes Irwin 1.2.840.1 [id number] [facility] [place] [facility] 08:16:05 23:59:00 Encounter 02443.1.1 it y of 3.412.2.7 [place] .3.888918 .8 [facility] 2022-05-08 2022-05-08 Outpatient [facility] [id number] 07:31:09 08:15:00 LUISE And erso n 2022-05-08 2022-05-08 [facility] 1.2.840.1 [id number] [facility] [place] [facility] 07:31:09 08:15:00 Encounter Ayaan 67000.1.1 ity of A 3.412.2.7 [place] .3.673045 .8 [facility] 2022-05-08 2022-05-08 Outpatient [facility] [id number] 06:47:48 07:30:00 CHAROSMANYE And erso n 2022-05-08 2022-05-08 [facility] 1.2.840.1 [id number] [facility] [place] [facility] 06:47:48 07:30:00 Encounter Ayaan 01036.1.1 ity of A 3.412.2.7 [place] .3.105756 MD Kim8 [facility] 2022-05-08 2022-05-08 Documentat [facility] 1.2.840.1 [id number] Univers 00:00:00 00:00:00 ion 34990.1.1 ity of 3.412.2.7 [place] .3.791225 MD Kim8 [facility] 2022-05-08 2022-05-08 Documentat Reyes [facility]win 1.2.840.1 [id number] Univers 00:00:00 00:00:00 ion 60440.1.1 ity of 3.412.2.7 [place] .3.405294 MD [facility] 2022-05-08 2022-05-08 Travel 1.2.840.1 1.2.490.929 [id number] Univers 00:00:00 00:00:00 93009.1.1 350.1.13.41 ity of 3.412.2.7 [place]7.3.698 [place]3.182852 084.8 MD Kim8 [facility] 2022-05-07 2022-05-07 Outpatient SABRINA IRVINCHRIS [facility] [id number] 06:40:38 23:59:00 SONALIDANIEL Angelo laurel durham 2022-05-07 2022-05-07 [facility] IrvinSonalinithyaruben Becker 1.2.840.1 10 [id number] [facility] [place] [facility] 06:40:38 23:59:00 Encounter Tao Devi 34694.1.1 ity of Audelia Gonzalez 3.412.2.7 Ochoa Ryan3.279146 MD [facility] 2022-05-07 2022-05-07 Anesthesia Emery Gonzalez.2.840.1 [id number] Univers 08:00:00 09:13:00 Event Audelia 25034.1.1 ity of 3.412.2.7 [place] .3.924011 .8 [facility] 2022-05-07 2022-05-07 [facility], 1.2.840.1 [id number] Univers 00:00:00 00:00:00 Carrol Carter 83072.1.1 ity of 3.412.2.7 [place] .3.443681 .8 [facility] 2022-05-07 2022-05-07 [facility] 1.2.840.1 1.2.222.025 [id number] [facility] [place] [facility] 00:00:00 00:00:00 58719.1.1 350.1.13.41 ity of 3.412.2.7 2.[place]7.3.698 [place] .3.916713 084.8 MD Kim8 [facility] 2022-05-06 2022-05-06 Outpatient [facility] [id number] 10:39:46 23:59:00 [facility] 2022-05-06 2022-05-06 [facility] Reyes Irwin 1.2.840.1 [id number] [facility] [place] [facility] 10:39:46 23:59:00 Mark Anthony Mireles 03892.1.1 ity of 3.412.2.7 [place] .3.104927 MD Kim8 [facility] 2022-05-06 2022-05-06 [facility] Heike Carballo 1.2.840.1 10 [id number] [facility] 10:45:00 10:45:00 Support Casandra Antonio 57148.1.1 ity of 3.412.2.7 [place] .3.821202 MD Kim8 [facility] 2022-05-06 2022-05-06 Outpatient SABRINA CARBALLO [facility] [id number] 10:10:40 10:34:42 HEIKE durham 2022-05-06 2022-05-06 Outpatient SABRINA CARBALLO [facility] [id number] 10:03:16 10:09:10 HEIKE durham 2022-05-062022-05-06 Travel 1.2.840.1 1.2.158.311 [id number] Univers 00:00:00 00:00:00 89011.1.1 350.1.13.41 ity of 3.412.2.7 [place].7.3.698 [place] .3.263011 084.8 MD Kim8 [facility] 2022-05-05 2022-05-05 Anesthesia Elton, 1.2.840.1 [id number] Univers 23:59:59 23:59:59 Event Tessierose 68302.1.1 i ty of D 3.412.2.7 [place] .3.257028 MD Kim8 [facility] 2022-05-05 2022-05-05 KOKI Carballo, 1.2.840.1 [id number] Univers 14:00:00 14:30:00 Appointgreg Pearson 86417.1.1 ity of ts 3.412.2.7 [place] .3.325577 MD Kim8 [facility] 2022-05-05 2022-05-05 Outpatient SABRINA CARBALLO [facility] MDA [id number] 07:56:48 07:56:48 HEIKE durham 2022-05-05 2022-05-05 Telephone Bhargavi, 1.2.840.1 [id number] Univers 00:00:00 00:00:00 Carrol Carter 05246.1.1 ity of 3.412.2.7 [place] .3.786677 MD [facility] 2022-04-28 2022-04-28 Documentat Art, 1.2.840.1 [id number] Univers 00:00:00 00:00:00 ion Mindi Bagley 22845.1.1 ity of 3.412.2.7 [place] .3.334186 MD [facility] 2022-04-21 2022-04-21 Outpatient FRANTZ ROMERO [facility] Percy/Hep/Nu 1 [id number] 09:17:00 15:00:00 t Errol durham 2022-04-21 2022-04-21 Hospital Frantz Ramirez 1.2.840.1 [id number] Univers 09:17:00 15:00:00 Encounter 30608.1.1 it y of 3.412.2.7 [place] .3.194391 MD Kim8 [facility] 2022-04-21 2022-04-21 Anesthesia Chrisgler, 1.2.840.1 [id number] Univers 12:21:00 13:43:00 Event Lidia 14557.1.1 ity of 3.412.2.7 [place] .3.153366 MD Kim8 [facility] 2022-04-21 2022-04-21 Surgery Frantz Ramirez 1.2.840.1 [id number] Univers 12:00:00 13:00:00 51035.1.1 ity of 3.412.2.7 [place] .3.679300 MD [facility] 2022-04-21 2022-04-21 Travel 1.2.840.1 1.2.184.919 [id number] Univers 00:00:00 00:00:00 11696.1.1 350.1.13.41 ity of 3.412.2.7 [place]7.3.698 [place] .3.921315 084.8 MD [facility] 2022-04-20 2022-04-20 POReyes Wheeler 1.2.840.1 [id number] Univers 16:00:00 16:30:00 Appointmen 13120.1.1 i ty of ts 3.412.2.7 [place] .3.264406 MD [facility] 2022-04-20 2022-04-20 Outpatient EL REYES [facility] [id number] 08:26:15 08:26:15 Errol durham 2022-04-17 2022-04-17 Anesthesia Earle, 1.2.840.1 [id number] Univers 23:59:59 23:59:59 Event Jody I 38462.1.1 ity of 3.412.2.7 [place] .3.794449 MD [facility] 2022-04-07 2022-04-07 Celine Mcrae 1.2.840.1 [id number] Univers 00:00:00 00:00:00 Only Yimei 54511.1.1 ity of 3.412.2.7 [place] .3.579442 MD Kim8 [facility] 2022-04-03 2022-04-03 Celine Bryan 1.2.840.1 [id number] Univers 00:00:00 00:00:00 Only Charmaigne 39913.1.1 i ty of A 3.412.2.7 [place] .3.990118 MD [facility] 2022-04-02 2022-04-02 Celine Carballo 1.2.840.1 [id number] Univers 00:00:00 00:00:00 Only Heike E 42128.1.1 it y of 3.412.2.7 [place] .3.125091 MD [facility] 2022-04-02 2022-04-02 Celine Bryan 1.2.840.1 [id number] [employer] 00:00:00 00:00:00 Only Charmaigne 07282.1.1 i ty of A 3.412.2.7 [place] .3.373602 MD [facility] 2022-03-31 2022-03-31 Documentat Susy Cabrera 1.2.840.1 [id number] [facility] 00:00:00 00:00:00 ion 54136.1.1 ity of 3.412.2.7 [place] .3.964877 MD [facility] 2022-03-24 2022-03-24 Prep for Aaron, 1.2.840.1 [id number] [facility] 00:00:00 00:00:00 Surgery Mertie 96885.1.1 ity of 3.412.2.7 [place] .3.208753 MD [facility] 2022-03-24 2022-03-24 [facility] Bryan, 1.2.840.1 [id number] [facility] 00:00:00 00:00:00 Only Melissaigne 44153.1.1 i ty of A 3.412.2.7 [place] .3.149483 MD [facility]8 [facility] 2022-03-24 2022-03-24 Prep for Walker, 1.2.840.1 [id number] [facility] 00:00:00 00:00:00 Surgery Mertie 04039.1.1 ity of 3.412.2.7 [place] .3.810986 MD [facility] 2022-03-24 2022-03-24 Celine Bryan, 1.2.840.1 [id number] [facility] 00:00:00 00:00:00 Only Luise 88186.1.1 i ty of A 3.412.2.7 [place] .3.603405 MD [facility] 2022-03-23 2022-03-23 [facility], 1.2.840.1 [id number] [place] 08:24:02 23:59:00 Encounter VALERIE 75613.1.1 Anderso 3.412.2.7 n .3.815432 .8 2022-03-23 2022-03-23 [facility] 1.2.840.1 [id number] [facility] [place] [facility] 08:24:02 23:59:00 Encounter Valerie Durham 00502.1.1 ity of 3.412.2.7 [place] .3.588486 MD [facility] 2022-03-23 2022-03-23 [facility], 1.2.840.1 [id number] [id number] [facility] [place] [facility] 14:15:00 16:00:00 Procedure Valerie Durham 93997.1.1 ity of 3.412.2.7 [place] .3.649856 MD [facility] 2022-03-23 2022-03-23 Ancillary SABRINA JONES, 1.2.840.1 [id number] [id number] 12:05:22 12:05:22 Procedure VALERIE 25082.1.1 Errolo 3.412.2.7 n .3.582306 .8 2022-03-23 2022-03-23 Hospital [facility] 1.2.840.1 [id number] 08:23:25 08:23:25 Encounter 44296.1.1 An carmineso 3.412.2.7 n .3.465178 .8 2022-03-23 2022-03-23 [facility] Reyes Irwin 1.2.840.1 [id number] 10 [id number] Katya 08:23:25 08:23:25 Encounter 05084.1.1 it y of 3.412.2.7 [place] .3.123637 MD [facility] 2022-03-23 2022-03-23 Travel 1.2.840.1 1.2.969.533 6044 [id number] Univers 00:00:00 00:00:00 16353.1.1 350.1.13.41 ity of 3.412.2.7 [place].3.698 [place] .3.911862 084.8 MD [facility] 2022-03-23 2022-03-23 Travel 1.2.840.1 1.2.213.610 4468 [id number] Univers 00:00:00 00:00:00 70177.1.1 350.1.13.41 ity of 3.412.2.7 [place]3.698 [place] .3.676154 084.8 MD [facility] 2022-03-19 2022-03-19 Outpatient REYES KINSEY MDA MDA [id number] 10:27:35 10:30:58 [facility] 2022-03-19 2022-03-19 Lab Mychal Lacey 1.2.840.1 [id number] Univers 00:00:00 00:00:00 Ander Huff 12986.1.1 ity of n 3.412.2.7 [place] .3.640148 MD [facility] 2022-03-19 2022-03-19 Travel 1.2.840.1 1.2.234.765 4286 [id number] Univers 00:00:00 00:00:00 60763.1.1 350.1.13.41 ity of 3.412.2.7 2.[place]7.3.698 [place] .3.759164 084.Radha [facility] 2022-03-19 2022-03-19 Lab LaceyMychal 1.2.840.1 [id number] Univers 00:00:00 00:00:00 Ander Huff 12655.1.1 ity of n 3.412.2.7 [place] .3.140357 MD [facility] 2022-03-19 2022-03-19 Travel 1.2.840.1 1.2.804.045 5206 [id number] Univers 00:00:00 00:00:00 18603.1.1 350.1.13.41 ity of 3.412.2.7 [place]7.3.698 [place] .3.877263 Sixto [facility] 2022-03-18 2022-03-18 Ancillary EL 1.2.840.1 [id number] 1095 [id number] Univers 20:35:00 20:40:00 Procedure 18611.1.1 it y of 3.412.2.7 [place] .3.475720 MD [facility] 2022-03-18 2022-03-18 Ancillary 1.2.840.1 [id number] 1095 [id number] Univers 20:35:00 20:40:00 Procedure 16939.1.1 it y of 3.412.2.7 [place] .3.803683 MD [facility] 2022-03-18 2022-03-18 Ancillary EL 1.2.840.1 [id number] 1095 [id number] Univers 20:30:00 20:35:00 Procedure 08963.1.1 it y of 3.412.2.7 [place] .3.321059 MD Kim8 [facility] 2022-03-18 2022-03-18 Ancillary 1.2.840.1 [id number] 1095 [id number] Univers 20:30:00 20:35:00 Procedure 60389.1.1 it y of 3.412.2.7 [place] .3.463512 MD Kim8 [facility] 2022-03-18 2022-03-18 Ancillary EL 1.2.840.1 [id number] 1095 [id number] Univers 20:25:00 20:30:00 Procedure 86478.1.1 it y of 3.412.2.7 [place] .3.213152 MD Kim8 [facility] 2022-03-18 2022-03-18 Ancillary 1.2.840.1 [id number] 1095 [id number] Univers 20:25:00 20:30:00 Procedure 74387.1.1 it y of 3.412.2.7 [place] .3.999921 MD Kim8 [facility] 2022-03-18 2022-03-18 Ancillary EL 1.2.840.1 [id number] 1095 [id number] Univers 20:20:00 20:25:00 Procedure 27534.1.1 it y of 3.412.2.7 [place] .3.031004 .8 [facility] 2022-03-18 2022-03-18 Ancillary 1.2.840.1 [id number] 1095 [id number] Univers 20:20:00 20:25:00 Procedure 70108.1.1 it y of 3.412.2.7 [place] .3.140331 .8 [facility] 2022-03-18 2022-03-18 Ancillary EL 1.2.840.1 [id number] 1095 [id number] Univers 20:15:00 20:20:00 Procedure 74599.1.1 it y of 3.412.2.7 [place] .3.862730 MD Kim8 [facility] 2022-03-18 2022-03-18 Ancillary 1.2.840.1 [id number] 1095 [id number] Univers 20:15:00 20:20:00 Procedure 28603.1.1 it y of 3.412.2.7 [place] .3.044026 MD Kim8 [facility] 2022-03-18 2022-03-18 Ancillary EL 1.2.840.1 [id number] 1095 [id number] Univers 20:00:00 20:05:00 Procedure 29793.1.1 it y of 3.412.2.7 [place] .3.316439 MD Kim8 [facility] 2022-03-18 2022-03-18 Ancillary 1.2.840.1 [id number] 1095 [id number] Univers 20:00:00 20:05:00 Procedure 67248.1.1 it y of 3.412.2.7 [place] .3.463121 MD [facility] 2022-03-13 2022-03-13 Orders Faisal, 1.2.840.1 [id number] Univers 00:00:00 00:00:00 Only Valerie Durham 61958.1.1 ity of 3.412.2.7 [place] .3.562094 MD [facility] 2022-03-13 2022-03-13 Orders Faisal, 1.2.840.1 [id number] Univers 00:00:00 00:00:00 Only Valerie Durham 84971.1.1 ity of 3.412.2.7 [place] .3.911342 MD [facility] 2022-03-12 2022-03-12 Telephone Provider, 1.2.840.1 [id number] Univers 00:00:00 00:00:00 Unknown 01611.1.1 ity of 3.412.2.7 [place] .3.571568 MD [facility] 2022-03-12 2022-03-12 Telephone Provider, 1.2.840.1 [id number] Univers 00:00:00 00:00:00 Unknown 92835.1.1 ity of 3.412.2.7 [facility]3.064169 MD Kim8 [facility] 2022-03-06 2022-03-07 [place] [id number] Memoria 14:50:00 04:59:59 r Urology 09 l [facility] Shruthi Time Share 2022-03-06 2022-03-07 Outpatient nullFlavo [facility] [id number] Memoria 14:50:00 04:59:59 [facility] 2022-03-06 2022-03-06 Outpatient Staller, [facility] [id number] 09:50:00 23:59:59 Karen L 09 2022-03-06 2022-03-06 Outpatient MHIE IE [id number] Memoria 09:50:00 09:50:00 09 tri Torres 2022-02-08 2022-02-09 Emergency nullFlavo [facility] [id number] Memoria 19:58:15 01:52:00 r Brian 04 [facility] 2022-02-08 2022-02-09 Emergency nullFlavo [facility] [id number] Memoria 19:58:15 01:52:00 r Brian 04 [facility] 2022-02-08 2022-02-08 [place] [id number] 14:58:15 20:52:00 Mateo Hinson 04 2022-02-08 2022-02-08 Emergency E STROCARMINE, SE MHSE [id number] MH 14:58:00 20:52:00 MATEO becker [facility] 2022-02-06 2022-02-06 Bedded nullFlavo [facility] [id number] Memoria 12:03:00 15:17:00 Outpatient r Brian 03 [facility] 2022-02-06 2022-02-06 Bedded nullFlavo [facility] [id number] Memoria 12:03:00 15:17:00 Outpatient r Brian [address] [place] [address] 2022-02-06 2022-02-06 Outpatient Tamica, MHSE MHSE [id number] 07:03:00 10:17:00 Nika Liriano 03 2022-02-06 2022-02-06 Outpatient TAMICA, MHSE MHSE [id number] MH 07:03:00 10:17:00 NIKA becker [facility] 2022-01-15 2022-01-16 [place] [id number] Memoria 16:30:00 04:59:59 r Urology 07 [facility] 2022-01-15 2022-01-16 [place] [id number] Memoria 16:30:00 04:59:59 r Urology 07 [facility] 2022-01-15 2022-01-16 Outpatient nullFlavo [facility] [id number] Memoria 17:33:00 04:59:00 r Bigfoot 60 [facility] 2022-01-15 2022-01-16 Outpatient nullFlavo [facility] [id number] Memoria 17:33:00 04:59:00 r Bigfoot 60 [facility] 2022-01-15 2022-01-15 Outpatient [place], MG MG [id number] 11:30:00 23:59:59 [facility] 07 2022-01-15 2022-01-15 Outpatient Agapito, MHSE MHSE [id number] 12:33:00 23:59:00 [facility] 60 2022-01-15 2022-01-15 Outpatient AGAPITO, MHSE URO [id number] MH 12:33:00 23:59:00 [facility] 2022-01-15 2022-01-15 Outpatient AGAPITO, MHSE URO [id number] MH 07:00:00 23:59:00 [facility] 2022-01-15 2022-01-15 Outpatient MHIE ANDRAEIE [id number] Memoria 12:30:00 12:30:00 08 [facility] 2022-01-15 2022-01-15 Outpatient MHIE ANDRAEIE [id number] Memoria 12:30:00 12:30:00 08 [facility] 2022-01-152022-01-15 Outpatient MHIE IE [id number] Memoria 11:30:00 11:30:00 07 l Brian 2022-01-06 2022-01-06 Outpatient BULMARO [facility] [id number] [place] 12:16:00 12:16:00 531 [facility] i [facility] 2022-01-01 2022-01-02 Outpatient nullFlavo [facility] 5557 [id number] Memoria 12:26:00 04:59:00 r Brian [facility] 2022-01-01 2022-01-02 Outpatient nullFlavo [facility] [id number] Memoria 12:26:00 04:59:00 r Brian [facility] 2022-01-01 2022-01-01 [place] [id number] 07:26:00 23:59:00 Liam Pace 2022-01-01 2022-01-01 Outpatient AGAPITO SE URO [id number] 07:26:00 23:59:00 LIAM [facility] 2021-12-24 2021-12-25 [place] [id number] Memoria 15:30:00 04:59:59 r Urology 05 l [facility] 2021-12-24 2021-12-25 [place] [id number] Memoria 15:30:00 04:59:59 r Urology 06 l [facility] 2021-12-24 2021-12-25 [place] [id number] Memoria 15:30:00 04:59:59 r Urology 05 l [facility] 2021-12-24 2021-12-25 Outpatient nullFlavo [facility] [id number] Memoria 15:30:00 04:59:59 r Urology 06 l [facility] 2021-12-24 2021-12-24 Outpatient PHUONG Betancur MG [id number] 10:30:00 23:59:59 Karen L 06 2021-12-24 2021-12-24 Outpatient Pipe MG [id number] 10:30:00 23:59:59 Karen L 05 2021-12-24 2021-12-24 Outpatient MHIE MHIE [id number] Memoria 10:30:00 10:30:00 05 l Brian 2021-12-24 2021-12-24 Outpatient MHIE MHIE [id number] Memoria 10:30:00 10:30:00 06 tri [place] 2021-12-01 2021-12-02 [place] [id number] Memoria 19:00:00 04:59:59 r Urology 04 l [facility] 2021-12-01 2021-12-02 [place] [id number] Memoria 19:00:00 04:59:59 r Urology 04 l [facility] 2021-12-01 2021-12-02 Outpatient nullFlavo [facility] [id number] Memoria 12:52:00 04:59:[address] 2021-12-01 2021-12-02 Outpatient nullFlavo [facility] 5557 [id number] Memoria 12:52:00 04:59:00 r Bigfoot 08 [facility] 2021-12-01 2021-12-01 Outpatient Agapito, MG MG [id number] 14:00:00 23:59:59 [facility] 2021-12-01 2021-12-01 Outpatient Dayne, MHSE MHSE [id number] 07:52:00 23:59:00 [facility] 2021-12-01 2021-12-01 Outpatient DAYNE, MHSE MHSE [id number] 07:52:00 23:59:00 JONH [facility] 2021-12-01 2021-12-01 Outpatient MHIE MHIE [id number] Memoria 14:00:00 14:00:00 04 tri Torres 2021-11-17 2021-11-18 Outpatient nullFlavo [facility] Multi 55 [id number] Memoria 14:40:00 04:59:59 r Specialty 03 [facility] 2021-11-17 2021-11-18 Outpatient nullFlavo [facility] Multi 55 [id number] Memoria 14:40:00 04:59:59 r Specialty 03 l [facility] 2021-11-17 2021-11-17 Outpatient PHUONG Betancur [facility] [id number] 09:40:00 23:59:59 Karen L 03 2021-11-17 2021-11-17 Outpatient MHIE ERIKA [id number] Memoria 09:40:00 09:40:00 03 tri Torres 2021-10-14 2021-10-15 [place] [id number] Memoria 21:00:00 05:59:59 r Urology 02 l [facility] 2021-10-14 2021-10-15 [place] [id number] Memoria 21:00:00 05:59:59 r Urology 02 l [facility] 2021-10-14 2021-10-14 Outpatient Pipe [facility] [id number] 15:00:00 23:59:59 Karen L 02 2021-10-14 2021-10-14 Outpatient MHIE ANDRAEIE [id number] Memoria 15:00:00 15:00:00 02 tri [place] 2021-10-06 2021-10-06 Outpatient BULMARO [facility] [id number] [place] 09:44:00 09:44:00 228 Commun i ty [facility] 2021-10-06 2021-10-06 Outpatient Monse [facility] [id number] 00:00:00 00:00:00 [place] [id number] [place] [id number] 2021-10-06 2021-10-06 [place] [facility] [place] 00:00:00 00:00:00 [place] [facility] [address] [facility] [address] HOSPITAL Clinic [place], [place], [address] MONSE , Ph. 2021-09-08 2021-09-09 Outpatient nullFlavo [facility] Multi 55 [id number] Memoria 14:45:00 05:59:59 r Specialty 01 l [facility] 2021-09-08 2021-09-09 Outpatient nullFlavo [facility] Multi 55 [id number] Memoria 14:45:00 05:59:59 r Specialty 01 [facility] 2021-09-08 2021-09-08 Outpatient Pipe, ANDRAEMG [facility] [id number] 08:45:00 23:59:59 Karen L 2021-09-08 2021-09-08 Outpatient MHIE MHIE [id number] Memoria 08:45:00 08:45:00 01 tri Bigfoot 2021-09-04 2021-09-04 Outpatient ERICKSON_R [facility] [id number] - [place] 03:19:00 03:19:00 127 Commun i ty [facility] 2021-08-18 2021-08-19 Outpatient nullFlavo [facility] Multi 55 [id number] Memoria 20:15:00 05:59:59 r Specialty 00 l [facility] 2021-08-18 2021-08-19 Outpatient nullFlavo [facility] Multi 55 [id number] Memoria 20:15:00 05:59:59 r Specialty 00 [facility] 2021-08-18 2021-08-18 Outpatient Pipe, MG MG [id number] 14:15:00 23:59:59 Karen L 2021-08-18 2021-08-18 Outpatient MHIE MHIE [id number] Memoria 14:15:00 14:15:00 00 tri Torres 2021-08-05 2021-08-05 Outpatient ERICKSON_R [facility] [id number] [place] 09:44:00 09:44:00 228 Commun i [facility] 2021-08-05 2021-08-05 [facility] [id number] 00:00:00 00:00:00 [place] Osuna11ec-a [place] [id number] 2021-08-05 2021-08-05 Outpatient KATHLEEN Talamantes [facility] [id number] 00:00:00 00:00:00 [place] Osuna11ec-b [place] [id number] 2021-08-05 2021-08-05 [place] [facility] [place] [facility] [place] [id number] [place] 00:00:00 00:00:00 [facility] DO: [address] Hospit a [facility], HOSPITAL [place], [place] CL[place]IC, [address] MONSE , Ph. [phone] 2021-06-30 2021-06-30 Outpatient ERICKSON_R [facility] [id number] - [place] 08:40:00 08:40:00 122 Commun i ty [facility] 2021-06-26 2021-06-26 Outpatient ERICKSON_R [facility] [id number] - [place] 09:44:00 09:44:00 118 Commun i ty [facility]osp[facility] 2021-06-26 2021-06-26 Outpatient Monse [facility] [id number] 00:00:00 00:00:00 [place] [id number] [place] [id number] 2021-06-26 2021-06-26 [place] [facility] [place] [facility] [place] [id number] [place] 00:00:00 00:00:00 [place] [facility] DO: [address] Hospit a [facility], HOSPITAL [place], [place]IC, [address] MONSE , Ph. 2021-01-21 2021-01-21 Outpatient ERICKSON_R [facility] [id number] [place] 01:48:00 01:48:00 615 Commun i ty [facility]osp[facility] Clin[facility] 2020-10-08 2020-10-08 Outpatient Remigio QUINTERO [facility] [id number] Univers 08:10:00 08:10:00 IKE [id number] ity of [facility] 2020-10-08 2020-10-08 Outpatient Remigio QUINTERO [facility] [id number] Univers 08:10:00 08:10:00 IKE ity of [facility] 2020-10-04 2020-10-04 Outpatient ERICKSON_R [facility] [id number] [place] 10:18:00 10:18:00 226 Commun i ty [facility] 2020-10-01 2020-10-01 Outpatient ERICKSON_R [facility] [id number] [place] 10:02:00 10:02:00 223 Commun i ty [facility] 2020-10-01 2020-10-01 [place] [facility] [place] [facility] [place] 00:00:00 00:00:00 [facility] DO: [address] [facility] [address], HOSPITAL Clinic [place], [address] MONSE , Ph. 2020-10-01 2020-10-01 [facility] [id number] 00:00:00 00:00:00 [place] [id number] [place] [id number] Results Test Description Test Time Test Comments Results Result Comments Source COVID-19 (SARS-CoV-2) PCR-Asymptomatic 2022-05-07 06:28:3 7 Test Item Value Reference Range Interpretation Comme nts COVID19 Not Not This (SARS CoV-2) Detected Detected test is a quali tative reverse-transcriptase Result (test polymerase demetrio n reaction (RT-PCR) developed for code = the Neisha MIGEL 6800 [place] [address]-2) qualitative det ection of SARS CoV-2 RNA in nasopharyngeal and oropharyngeal swab specimens collected from any individuals, including those suspected of CO VID-19 by their healthcare provider, and those witho ut symptoms or other reasons to suspect COVID-1 9. A fact sheet for patients provided by the seed yeast operator ([employer]) c an be reviewed at:https://www. fda.gov/media/531014/download. A fact sheet for Health Care providers is provided by the manufacture r ([employer]) and can be reviewed at: https://www.fda .gov/media/687219/download Results must be interpr eted within the context of all relevant clinic al and laboratory findings and should not form the sole basis for a diagnosis or treatment decis ion. Positive results do not rule out bacterial i nfection or co-infection with other viruses. Negati ve results do not rule out SARS-CoV-2 and must be combined with clinical observations, p atient history, and/or epidemiological information. "Presumptive Positive" results are due to partial amplification of SARS-CoV-2 targ ets and indicates low amounts of virus present i n the specimen at or near the limit of detection. R egardless, individuals with "Presumptive Po sitive" results should be managed per institution al guidelines as individuals positive for SA RS-CoV-2 virus, including use of appropriate inf ection control protocols. Internal controls are in cluded to assess for possible amplification i nhibitors. If inhibition is detected, testi ng is repeated and if inhibition is confirmed the s pecimen is resulted as "Invalid". When an "Invali d" result occurs, it is recommended to wait 3 days before submitting a new specimen for testing if clin ically indicated. This assay has been approved b y the FDA for use only under Emergency Use A uthorization (EUA) in laboratories that have been CLIA-certified to perform moderate-comple xity and high-complexity tests. The performance blaine racteristics of this assay were verified by the Microbiology Laboratory at [facility], CLIA Accreditation #: [id number] and CAP Accreditation #: [id number]. COVID19 SARS VENDING ATTENDANT Swab Source (test code = 92369) COVID19 SARS Pre-Out of Indication OR (test code = Procedure 88259) [facility] Interpretation 2022-04-22 16:26:24 Test Item Value Reference Range Interpretation Comments Submitted Clinical History [id number] (test code = 62155) mbGFuZzEwMzNcZnRuYm pcdWMxIHtccnRmMVxzc 6GiN8RnIrOfBSlyilIj XGRlZmxhbmcxMDMzXGZ 0bmJqXHVjMVxkZWZmMH kxSe4dfKOhuXmtCoMlK SOwg1khzxGEybfajJb4 b5akIYRuGbI6kTQpCDb cS9lgclFmeYOeRFGsRH z9iO40MPLqwP2peXOpN PsjtiNbAzV7YHrrPLCj VzL3AUAfsBZqSFQhV6y yZWQwXGdyZWVuMFxibH YeXTV8bSywg4M5qDMmo GVldHtcZjBcZnMyMiBO y8FcVSx3rGlwN6YdKYJ eWiC8mDLhSXKaTGbkUT AzOSHnpjK6jI52GMnuj oD2tUQjb0Nvp83ms536 aY6yhZIeUWX9DHBpWKQ nxGEeMHMgIAX3BVAnbU BaM7plYNKdLP5fovpbI XdxOTkhDVNhrAI3AFEz tCBoZ3PuOSZaTYiyFXK pzpl3MaDlMt1cfIGvjN nqAHnlt7gse6qejPQtX eo6DLZhDuUqPoarEQws u7Tis9xjGQHwkn9rMHB 2pGYmjOezn1U8zBEbHE XnoVDkdyLxHMVkTfS4Q YuhPX7lsx65JCUzLYH9 jw7raRHkqZulalOsiTX iCLrxO3RnGICvv021CT DzH7UeJYVcn7Z4lkPwX wBjCELpsXV4fbQ2TAUw HPw9pICjsbJ3pvBxtBL gY0eiuP2pIEGcKV0gbp kkv5vzSNpoXZjsJVHyw FY2jiQ1QLYynSCtG9Do bF8cBEWtCPhmZIYjxvf 2IwEkEy4mcORqrVbyBW xzYmtwYWdlXHBnbmNvb nRccGduZGVjXHBsYWlu XHBsYWluXGYwXGZzMjR spQslhAjbvQ6yTnZsSg JoJUzrWW6pDQAtR6way BDzAZXeFUNxL2tuWuHj mI4bpNouIPmclvZmPY1 buPqoqiGdiUBnSS5ojQ RicVOcPeFefg0woCD4D SBbQzYxXVxwbGFpblxm MVxmczIyXGxhbmcxMDM bLDjpH0qiWaOwCCWmsX maBPyng1WlGBHsPFJqB jJccGFyfX0= Diagnosis (test code = 34) r3pvhROgTHGmtCK1GKO wWYMqh7tgz6RzyPUhbL JyJLprhGErjwQduk35w EX0lZ42YM9ySUQeQyI3 BHJnxeI2Gkt1VZZnEUP arQCqX453n7tla6dhdx TuaJX8sPcmYAYmbvzfW wR0LRmaBNIlzsyjTAp5 XPqoIKStaXG5MBCufCC qG8EgIJDhQK2rfim5EP N5ICnrXCAyPtY1EVPld XMdUHJqhGawZGhjh591 IJU2FiJoOIFlozMznEs plX9cShGrAVTLZwNuA4 0ya03uGKephsIlfKtdx pBkjJJez4JzHYCxBY5e eT7xDTYelM2lDNDneF5 fs3a4SWmelsEvZPx5KI CcB49bw07wkPMsq2UwO HdpdGggbHltcGhvaWQg TMvkddPxOJQhp6wwuG4 zGLUyRBBGs8fujhaolW XqNATiSmZawMC8uTRuC SPrqVospaA3VuwpLccm xWC4HjffoR7oQZRseDO oMOZ3bgI8qRO0yHRwBA GxVY4kzKPtEDwdmvMvR i0lENAipH1xPBA2vqCs h6StsvEoEAPgbM9nCXP rzNsaTWNapX8hc6r9CP weofRrZWa8RPBeFZIxq ZqotcJvKKGmo73vHFbh vlTzJA1rOFRtwL1zWDN kFFP7e3TzR65arOCtyT 9oaBCkXTCrv1FlsTxyz GluZSAgXHRhYiBIeXBl ueJeGUV2tSQklV2vrLJ ccGFyfQ== Gross Description (test p8jioPToAULknMAUBUd code = [id number]) wMVxhbnNpXHNwbHRwZ3 ZjllqoXPxyTB3yGT1ux YfewKSbiZHlMJ1XWJPh ZmYxXHBhcGVydzEyMjQ bFWNtpOBdnEV9HETaEJ 1hcmdsMTgwMFxtYXJnc hJ3YSWooIJqE4UhQEAf HA9hccyeCOA3LNzkdZ6 uczIIUcffSm4gwQBusN tcZjFcZmNoYXJzZXQwX ZVzvHurEFMxCLv6jD5Q SzcxQ69xu2B3Igm0HHT lUSIiN3AcHF4oXCBokP XdJ23XGrtyFWA8GXOJN ycjPCGtSD6Mj7rnEOMz sMOtLCL9DUlrlJDhZMS tQEZiGIm6RRMuILhqxT KiDP5geNemPfkfvDcds 2VjdCBcXGlkIDUxMDAy NLfjTUIjGG1IXwEvHUO pOHUdLBYzEWp5BFz3ZN 8OSpMyOITbAYG8BdH7U qFwUOu5QMgeDJ0CTIHa Jas3WzTsVjDaZPCkAnT uFDs4GAGvUFwcGDFgnQ FsIFxcZnMgMTAgXFxmY lMdWASuTOimrhV6OAFz YWluXGJcZnMyMCBBOlx wSLMxSTpsbCrbxL6dUU WoW26zf7FNy2IqTU4IX Gl7etUfnsypqU3cKYVj nbTdNQtoyPVoI4boFup dQhJmLxFaGCYOj6jdke lchNXhDLj1eVRyJF81P 66rJFCiILTiFB2qrS4p SIJrjD1yKwcxJLtcKcB xXVX6ojN4EL5lbCNecD 35IBYqSURolrOtRfC7n DRfdFIztKKkk8JfgQ1c WNDkZiIbkjKnXM03OXZ tLCBlbnRpcmVseSBzdW QrtKF5IJMnmD8lOLGjE CBccHJvdGVjdHtcZmll oUK4GFfhYatviY3qaOT IWVBFUkxJTksgbmFtZT 7URE3YTfACGZ81SoExI CC4GJuSB7JYxTX9Nbf8 VEi5vNzlDzxyvjJuaLQ vDsOMyR0XFYjzVopazL Y5YVlpFvbxaI4vzJNMA PXRYhrKTgmpdmZuNE8O NV6HPT6KmLRaIPA2eOD 8GVTYEommeWV2sIY7xV 17XGZsZHJzbHQgXCcxQ 659IILcJLcjRHe2qsUa OXOoIjYnBFfuWSIsF59 cv2PQi6VfAILiy1kfaJ rca6XxaFUmTTwoYMBme YGySAptpJ4sEdBet7cg hWf9ELkqmyI6IXKych8 hxSgulR5lGAh6PWlvSP HmP6MhA2XuFAmuJFV8U TAwMiBcXGRiICBPVlIg SlRqGPmrNXvkDqT8QRx 5OSBPVlMgIiAgIDUxNz ZhDGfePEy0DDi3UBsQU eFtCBJ4QRFxVAZ1EYJ9 IXZ1YPpnrNWtQGomOlR BcmlhbCBcXGZzIDEwIF wcUpTuALzpsBPeOB3cb VxwbGFpblxiXGZzMjAg EtbibWSnVY2HUHOaOHq pKUQkgTXWMRR4RZ1lWK ANClxsdHJwYXJcbGluM GzqmL5aZY7QKRy5ssYm YJLsQ5BkNPNfCqTuC69 fe28rADwbvAK3fOMrOi dpcUYgVPFpg0s5xEZtv G7fsQSuQidgMLomNwZo KT37mBUigLvfVNSqun8 esz16pdDihAZoEGUbs7 DauCnze7FmKM3nQUT2e mluZyAwLjcgeCAwLjYg kBZbYcDaF66gjF5kKIs ncmVnYXRlLCBlbnRpcm XmaCPxwXGqwHE1WHKmy M4vLqMlSFIalCXajFCw xBrjTnywtQX2HJhvPin hiN1oeIKPVFCIUbqTFx pfayZqVM9WZP1ZLcQXV Q65OgYcDHW9AIkGC4ZE kGR4Uzs1JCa2nVgqYrm rzvJaqWHgKtWKtO0VEE lnJtfhvYB8LZdhApvvr X6urEOJLQCFOmzQUpil djTcJF8JST7DDT1ObKL mIBC9tYR6GJKGDqxooP I8sRT6wD21VRJiNCCla YYxCMkmH761FZYqYKbn MGi7lmKoQROrVcUmXDk eLXEuF64no7BFp7QqJL Bcg3amwWeng6VxoIHnV ItaXURzqILrJMgchB0v FxDov4eijUm1REoqrzB 2XRTjku4ulQybeJ7mFF k5QCnuFWRrU0MyF2EbE DfuKPH2ARGcYoGpFTWy ICBPVlIgIiAxMDgyMTk qSwA4ERf4ZHJGIbAoHs WgGMQqLtAxKTouDIe6I Py9SHiLTlOtPXR0LIJu LVXtCGO5RBT0VBorgJA yIFxcZiBBcmlhbCBcXG ZzIDEwIFxcZmIgXFxmb BPrSN0fiHrqoQAtjfej XGZzMjAgQzpccGFyIA0 KXHBsYWluXGVwaWNOZX B3MO5rXIURNsfkdOIfN WExtQtuVQepyR1aZR5J FMe8yfXxRQSiG3QvZTG zNgPlT70cu27eNHSqJV 3pngIms8AuW50mv44ck K6jwYW8AECkNIHfDOMj TXVsdGlwbGUgcmVkLWJ qf9poWLCpAAObamMwJb R4mUTjpGHodRTmy4Eli M8oRFQfTSE3PPGkBlG2 ZNMhKLCjnOTouyNwP2d yZWdhdGUsIGVudGlyZW a3NPT2Qr1wqUThWTUck jWGFM5bOQzood95UJQ5 k1mtdCLbWEjvLnmoyYZ jaoR9QOrLXSHJHQrBFt OmXC2cOIzEXyrFUNsXS nwyMTAxNnwxfFVTRVJ8 IPxtkFresBd6n1ewrKS cr0c9DRluVOL1hXnAl1 xmaWVsZHtcKlxmbGRpb aN2JGtFTWINIRdYBzUr XQ6nMHuZXfhSFmS8QiV sZPH3VCcGP9QOiLF5Mq i2YDc0gJyoWpnmqfLvp MZnYzWQxO7msNogzE7y yVCkO0jwRzPqXFJGGvd lcGljTmVzdERvYzBcdj P3AHJstLZyNJA9VW6cB HBhclxwYXJkXHNsLTE2 XCagaB61tIJjNHOiTKV ccGFyfVxwbGFpbiANCn itWpvpwEmxa9WrnTIaY GlkIDUxMDAyIFxcZGIg IH6HKjXiWDEhIOPfPII cGEu6YGz5RX8AXyWrTA HjIFG1QxI4JXSaBMi1R YrbXG3TFVYvVen8MwP1 ImmtCAGvQzSzCMk5LPW gXFxmIEFyaWFsIFxcZn MgMTAgXFxmYiBcXGZsI CpksoY7FGTpNHxqORPn ZnMyMCBEOlxwYXIgDQp uyDhsmB4uUDKrW43fm3 FFa9LhRT2HQNl7izMbb mkplG9tOIQxoxAmUHyn xREoY0xbNfmkCfMoFaF qBFWNc7jlqdtcjvXirF 0vVLCobOktu0poNHPad KckFjueUEfnHqKiPG0j QZC5JO1swtRgHLTxMQK jXM7tBGFuk0H5XPQvLG FuaEWqageuHY72XDDmV CBlbnRpcmVseSBzdWJt zAL2JFInsU2mBXUvAGT ccHJvdGVjdHtcZmllbG F1VDtmFjzcaF6baTSWX IHSHlePNivsbhXvPR8J QS7IRrMZYK80QoXhGJT 0WAaFJ6RGgVW4Nfx0GH b0uUhiClxtihPgkMAzO fQRwB1QKYzoLxrwgLV0 FZicPnhraO4hfRQQRMP BGsjZFtgfnzSrRD6JYQ 3EZI4MgBUoWJR8nAF1Y DKIMmutmDN0bTX9oJ58 VVZdJNHtwRIzJSzsS33 0GRCaDLcaECa4udUtKO LlMdFpHYwpSPWiM85pr 1SPr2FlQHVpn0wdxUnl c8PjiEScWUesFFSksSA eKIbdkN4zZbEgv9gevN h4LAycolS9FPJvne6yf McmaN1tOEagn8evEDJ9 XHNsbXVsdDAgDQpccGx eoU4kYwJyEqa5GMfnES CsZ7PwN5YnuwX4KOFiR WluXGZzMTYgDQp9 Disclaimer (test code = l2kvkAVrOHSswKPuGfN [id number]) sAZUpHPWva8koALNjyH FuZzEwMzNcZnRuYmpcd LCzOIJwToQib5tcd304 hRChp0dzBLDdOxY2qEY wBUIebQYdV341QWOrUM hjr4ugp3IgINRtcEScq 8P8AKIPighxsBt4eHif X11es0X4LfudS4xyKSO wZGLcO6MxYF5pRXBpDg k3WSJ1BUS1RMLpZLPeQ 9LzEE4xLKKvlBCdLMj3 v1fyaCdgXQWcMII3p7r bRRqidtFwXM9dqa5scR y8o1cidxHvXBIyCEAde XLUEPGyE5ZycAeqMw1m vUy8yKoiJhkoXDT8Ydl 9LP1ouw53via0kXsnBU UvlxqxZaC3FXeiELMgf stpAZy5WUdjMDGvoXO5 MEDvgLGxY8EgHLWpBM2 kmrd7EWB0RZlzFLXvXk J8QIIycLLfXKMduYwvS Dwdr679ULS4LgOkWF4d M0Bys4R0nC6pdHGlBJY rjNDdAvYsDVDxql3rhU NtIRnug7YjBPX4crB2s LWwoUMyYIPwVY36Zwbl g4YrVnjcUWL6OLZopbD qb3Idc7zgXrJopaTdK9 vpO2ClOOQiQOUnRLMoD rAllxZor4Bej7XsuUOj pRq2v5xrFWMtKGOxaUx tv6nhQSV1IBTmD7F1tG Xxl3sdKEadERFspAY4b vV8LVGihMUvT8PgvE3q WICiZA8rabn0e8ciQDS 4MEmsJCZmPwC2suN4ZK BcaGVhZGVyeTcyMFxmb 195KUO0AdRdBAInj7Nk S9LrdMlfD29fqAyfY88 bVNPojUsqdH0wiWcjyX 5cZjBcZnMyNFxxbFxwb NVgfdrtWSykqiF4ACiq qarzCZXnXHvsD7hzXeG aBAKrvVysQQitb1HpXA MmHCEzHlifkqC6CDPGa 87tHFSni5HySLTomJ3p kRHvDRlyubSppEZ2EYe hdmUgYmVlbiBkZXZlbG 9mBXKrWN2bSREwmmOxw o0xspSsVAXgICTiD7Nk cmlzdGljcyBkZXRlcm1 eszZiWWR4QFKHQW0TEJ ZmDQHkz94hOIRulNeip Q8voJQfcpSrRKWoa4Rn oY8uzNACBENoX4auOO6 pVAkuu4BzlWZspYAegL C2EUDzh9YqEyBgrfFxh RMiuGLrL8JdwYckN2ge OLYkYNBdjcFukTQxs8M wEQWuaFH5aQIkJG4NNj ZSn40nMMGjBBGRljYdR WCanZggwOE9xlB6qQ2k LiBJZiBhcHBsaWNhYmx gOMFhw381xb8ndzY7JO HkXWRiqhuao9QuHAMaB FYpuR15SZSiGJYcwj1d hldleOBpylHjW0Xomdv 5hK1zZBHvIMxlOIMdXZ ZzMjJcbGFuZzEwMzNca GljaFxmMVxkYmNoXGYx CHexY6rqFyVvCzLtMrg wYXJ9 [facility] LaurelCOVID-19 (SARS-CoV-2)Czilrwueaelp-[id number] 15:19:06 Test Item Value Reference Range Interpretation Comments COVID19 Not Detected Not Detected (SARS-CoV-2) (test code = 72593-8) COVID19 SARS Pre-Out of OR Indication (test Procedure code = 89508) Covid 19 Comment See Note The migel S ARS-CoV-2 (test code = [place] [address]) use on the darian s [employer] System is a darlin l-time RT-PCR assay in tended for the qualita tive detection of SARS-CoV-2 (COV ID-19) viral RNA in nasopharyngeal swabs from either individuals sivakumar pected of COVID-19 by their healthcare prov ider or from any individual, inc luding individuals wit hout symptoms or oth er reasons to susp ect COVID-19. A fac t sheet for patie nts provided by the seed yeast operator ([employer]) can be rev iewed at: https://www.[employer] .gov/m edia/112142/andrew nload. A fact sheet fo Health Care pro viders is provided by the seed yeast operator ([employer]) and can be reviewed at: https://www.fda .gov/m edia/969783/andrew nload Results must be interpreted wit hin the context of all relevant clinic al and laboratory find ings and should not form the sole basis for a diagnosis or treatment decis ion. Positive result s do not rule out bacterial infec tion or co-infection with other viruses. Negative result s do not preclude SARS-CoV-2 infe ction and must be com bined with clinical observations, p atient history, and/or epidemiological information. Th is assay has been authorized by t [facility] for use only un carmine Emergency Use Authorization ( EUA) in laboratories that have been CLIA-certified to perform moderate-comple xity and high-comple xity tests. The Microbiology Laboratory at [facility], CLIA Accreditation #[id number] and CAP Accreditation #[id number], verif ied the performance characteristics of this assay. Int ernal controls are us ed to monitor all sta ges of the test proces s. [facility] CenterTestosterone Vajmy5077-02-06 16:09:00 Test Item Value Reference Range Interpretation Comments Testoster Tot (test >1390 193-740 H Referenc e code = 2986-8) Ranges: Male: Age 20 - 49 249 - 836 Age >=50 193 - 740 Female: Age 20 - 49 8 - 48 Age >=50 3 - 41 NABIL (test code = NABIL) Please schedule early AM prior to new patient visit. Lab Interpretation Abnormal (test code = 40856-7) [facility] CenterVitamin D [id number] 16:05:03 Test Item Value Reference Range Interpretation Comments Vitamin D 25 OH 34 ng/mL 30-100 Reference Ra nge: (test code = Deficiency: <10 31661-2) ng/mLInsufficie ncy: 10-29 ng/mLSufficienc y: 30-100 ng/mLPotential toxicity: >100 ng/mL NABIL (test code = Please schedule NABIL) early AM prior to new patient visit. [facility] CenterVitamin D [id number] 16:05:03 Test Item Value Reference Range Interpretation Comments Vitamin D 25 OH 34 ng/mL 30-100 Reference Ra nge: (test code = Deficiency: <10 44692-1) ng/mLInsufficie ncy: 10-29 ng/mLSufficienc y: 30-100 ng/mLPotential toxicity: >100 ng/mL NABIL (test code = Please schedule NABIL) early AM prior to new patient visit. [facility] CenterPSA2022-08-15 15:57:12 Test Item Value Reference Range Interpretation Comments PSA (test code = 8.6 ng/mL 0.0-4.0 H Results gre ater 2857-1) than 4519 ng/mL may not be reliable due to matrix effect w ith extended diluti on as it exceeds t he seed yeast operator's recommended ramirez it. Caution should be exercised when interpreting durham ch values and done in conjunction wit h clinical contex t. PSA Indication (test Diagnostic code = 54348-9) NABIL (test code = NABIL) Please schedule early AM prior to new patient visit. Lab Interpretation Abnormal (test code = 88688-9) [facility] CenterFractionated [id number] 15:57:11 Test Item Value Reference Range Interpretation Comments Bili Total (test 0.7 mg/dL See_Comment Indocyanine Green code = 1975-2) (ICG) may cau se falsely elevate d bilirubin resul ts. Total and direc t bilirubin must not be measured from s amples containing indo cyanine green. False el evation of total biliru bin can be seen in silva ents with IgG concentrations above 28 g/L. [...] early AM prior to new patient visit. [facility] LaurelFractionated [id number] 15:57:11 Test Item Value Reference Range Interpretation Comments Bili Total (test 0.7 mg/dL See_Comment Indocyanine Green code = 1974-09) (ICG) may cau se falsely elevate d bilirubin resul ts. Total and direc t bilirubin must not be measured from s amples containing indo cyanine green. False el evation of total biliru bin can be seen in silva ents with IgG concentrations above 28 g/L. [...] Indirect 0.5 mg/dL 0.0-0.9 (test code = 1971-1) NABIL (test code = Please schedule NABIL) early AM prior to new patient visit. [facility] CenterPhosphorus [id number] 15:57:10 Test Item Value Reference Range Interpretation Comments Phosphorus (test code = 2.6 mg/dL 2.5-4.5 2777-1) NABIL (test code = NABIL) Please schedule early AM prior to new patient visit. [facility] CenterPhosphorus [id number] 15:57:10 Test Item Value Reference Range Interpretation Comments Phosphorus (test code = 2.6 mg/dL 2.5-4.5 2777-1) NABIL (test code = NABIL) Please schedule early AM prior to new patient visit. [facility] CenterLDH2022-08-15 15:57:08 Test Item Value Reference Range Interpretation Comments LDH (test code 215 U/L 135-225 Results great er than = 86133-9) 1651 U/L may no t be reliable due to matrix effect with ext ended dilution as it exceeds the manufacture r's recommended ramirez it. Caution should be exercised when interpreting durham ch values and done in conjunction wit h clinical contex t. NABIL (test code Please schedule = NABIL) early AM prior to new patient visit. [facility] CenterLDH2022-08-15 15:57:08 Test Item Value Reference Range Interpretation Comments LDH (test code 215 U/L 135-225 Results great er than = 62578-0) 1651 U/L may no t be reliable due to matrix effect with ext ended dilution as it exceeds the manufacture r's recommended ramirez it. Caution should be exercised when interpreting durham ch values and done in conjunction wit h clinical contex t. NABIL (test code Please schedule = NABIL) early AM prior to new patient visit. [facility] CenterGlomerular Filtration Rate 2022-03-23 15:57:07 Test Item Value Reference Range Interpretation Comments eGFR-AA (test 86 See_Comment Normal eGFR: > = 60 code = mL/min/1.73 m2N ote: The 52121-7) eGFR is calcula lev using the CKD-E [...] 60 code = mL/min/1.73 m2N ote: The 21177-5) eGFR is calcula lev using the CKD-E [...] early AM prior to new patient visit. [facility] LaurelCalcium [id number] 15:57:06 Test Item Value Reference Range Interpretation Comments Calcium Lvl (test code 8.9 mg/dL 8.4-10.2 = 60642-0) NABIL (test code = NABIL) Please schedule early AM prior to new patient visit. [facility] CenterCalcium [id number] 15:57:06 Test Item Value Reference Range Interpretation Comments Calcium Lvl (test code 8.9 mg/dL 8.4-10.2 = 57300-4) NABIL (test code = NABIL) Please schedule early AM prior to new patient visit. [facility] CenterTotal [id number] 15:57:05 Test Item Value Reference Range Interpretation Comments Total Protein (test 6.9 g/dL 6.4-8.3 code = 2885-2) NABIL (test code = NABIL) Please schedule early AM prior to new patient visit. [facility] CenterTotal Nkucyuo1939-12-99 15:57:05 Test Item Value Reference Range Interpretation Comments Total Protein (test 6.9 g/dL 6.4-8.3 code = 2885-2) NABIL (test code = NABIL) Please schedule early AM prior to new patient visit. [facility] CenterAlbumin Knakp9519-62-77 15:57:04 Test Item Value Reference Range Interpretation Comments Albumin Lvl (test 3.9 See_Comment [Automate d message] code = 4763) The system [employer] generated this result transmit lev reference range : 3.5 - 5.2 gm/dL. Th e reference range was not used to interpret this result as normal/abnormal . NABIL (test code = Please schedule NABIL) early AM prior to new patient visit. [facility] CenterAlbumin Agndm6711-09-70 15:57:04 Test Item Value Reference Range Interpretation Comments Albumin Lvl (test 3.9 See_Comment [Automate d message] code = 4763) The system [employer] generated this result transmit lev reference range : 3.5 - 5.2 gm/dL. Th e reference range was not used to interpret this result as normal/abnormal . NABIL (test code = Please schedule NABIL) early AM prior to new patient visit. [facility] CenterMagnesium [id number] 15:57:03 Test Item Value Reference Range Interpretation Comments Magnesium (test code = 2.1 mg/dL 1.6-2.6 83677-1) NABIL (test code = NABIL) Please schedule early AM prior to new patient visit. [facility] CenterMagnesium [id number] 15:57:03 Test Item Value Reference Range Interpretation Comments Magnesium (test code = 2.1 mg/dL 1.6-2.6 45885-6) NABIL (test code = NABIL) Please schedule early AM prior to new patient visit. [facility] CenterAspartate Aminotransferase 2022-03-23 15:57:02 Test Item [...] visit. Lab Interpretation Abnormal (test code = 73658-8) [facility] CenterAspartate Aminotransferase 2022-03-23 15:57:02 Test Item [...] visit. Lab Interpretation Abnormal (test code = 18218-3) [facility] CenterAlkaline [id number] 15:57:01 Test Item Value Reference Range Interpretation Comments Alk Phos (test code = 122 U/L 40-129 6768-6) NABIL (test code = NABIL) Please schedule early AM prior to new patient visit. [facility] CenterAlkaline Ywihsrthsij6195-86-45 15:57:01 Test Item Value Reference Range Interpretation Comments Alk Phos (test code = 122 U/L 40-129 6768-6) NABIL (test code = NABIL) Please schedule early AM prior to new patient visit. [facility] CenterElectrolyte [id number] 15:57:00 Test Item Value Reference Range Interpretation [...] Chloride (test 105 See_Comment [Automated code = 2074-0) message] The system which generated this result transmitted reference range : 98 - 107 mEq/L. Th e reference range was not used to interpret this result as normal/abnormal . CO2 (test code = 26 See_Comment [Automated 2028-04) message] The sy stem which generated this result transmitted reference range : 22 - 29 mEq/L. The reference range was not used to interpret this result as normal/abnormal . Anion Gap (test 10 See_Comment [Automated code = 19996-0) message] The system which generated this result transmitted reference range : 4 - 14 mEq/L. The reference range was not used to interpret this result as normal/abnormal . NABIL (test code = Please schedule NABIL) early AM prior to new patient visit. [facility] Cancer LaurelElectrolyte [id number] 15:57:00 Test Item Value Reference Range Interpretation [...] Chloride (test 105 See_Comment [Automated code = 2074-0) message] The system which generated this result transmitted reference range : 98 - 107 mEq/L. Th e reference range was not used to interpret this result as normal/abnormal . CO2 (test code = 26 See_Comment [Automated 2028-04) message] The sy stem which generated this result transmitted reference range : 22 - 29 mEq/L. The reference range was not used to interpret this result as normal/abnormal . Anion Gap (test 10 See_Comment [Automated code = 77559-7) message] The system which generated this result transmitted reference range : 4 - 14 mEq/L. The reference range was not used to interpret this result as normal/abnormal . NABIL (test code = Please schedule NABIL) early AM prior to new patient visit. [facility] CenterALT2022-08-15 15:56:59 Test Item Value Reference Range Interpretation Comments ALT (test code = 42 U/L See_Comment H [Automated 1742-6) message] The system which generated this result transmit lev reference range : <=41. The reference range was not used to interpret this result as normal/abnormal . NABIL (test code = NABIL) Please schedule early AM prior to new patient visit. Lab Interpretation Abnormal (test code = 41832-2) [facility] CenterALT2022-08-15 15:56:59 Test Item Value Reference Range Interpretation Comments ALT (test code = 42 U/L See_Comment H [Automated 1742-6) message] The system which generated this result transmit lev reference range : <=41. The reference range was not used to interpret this result as normal/abnormal . NABIL (test code = NABIL) Please schedule early AM prior to new patient visit. Lab Interpretation Abnormal (test code = 65159-1) [facility] CenterGlucose [id number] 15:56:58 Test Item Value Reference Range Interpretation Comments Glucose Level (test 108 mg/dL 70-99 H Effectiv e 03/04/16, code = 2345-7) the glucose reference intervals have been updated ba sed on [employer] guidelines (Standards of Medical Care [...] visit. Lab Interpretation Abnormal (test code = 59958-9) [facility] CenterGlucose Csexp0582-84-24 15:56:58 Test Item Value Reference Range Interpretation Comments Glucose Level (test 108 mg/dL 70-99 H Effectiv e 03/04/16, code = 2345-7) the glucose reference intervals have been updated ba sed on [employer] guidelines (Standards of Medical Care [...] visit. Lab Interpretation Abnormal (test code = 69565-8) [facility].Serum Wtmjcecpxr9780-50-44 15:56:57 Test Item Value Reference Range Interpretation Comments Creatinine (test code = 1.02 mg/dL 0.67-1.17 2160-0) NABIL (test code = NABIL) Please schedule early AM prior to new patient visit. [facility] CenterBUN2022-08-15 15:56:56 Test Item Value Reference Range Interpretation Comments BUN (test code = 16 mg/dL 6-23 3094-0) NABIL (test code = NABIL) Please schedule early AM prior to new patient visit. [facility] CenterPT [id number] 15:48:40 Test Item Value Reference Range Interpretation Comments PTH Intact (test code 61.9 pg/mL 15.0-65.0 = 6769) NABIL (test code = NAIBL) Please schedule early AM prior to new patient visit. [facility] CenterPT [id number] 15:48:40 Test Item Value Reference Range Interpretation Comments PTH Intact (test code 61.9 pg/mL 15.0-65.0 = 6769) NABIL (test code = NABIL) Please schedule early AM prior to new patient visit. [facility] CenterDifferential2022-08-15 15:22:05 Test Item Value Reference Range Interpretation Comments Neutrophil % (test 51.2 % 42.0-66.0 code = 770-8) Lymphocyte % (test 35.2 % 24.0-44.0 code = 736-9) Monocyte % (test code 10.3 % 2.0-7.0 H = 5905-5) Eosinophil % (test 2.1 % 1.0-4.0 code = 713-8) Basophil % (test code 0.9 % 0.0-1.0 = 72617-0) IGRE % (test code = 0.3 % 0.0-0.4 IGRE % c ount 29281-6) includes Metamyelocytes, Myelocytes, and Promyelocytes. Neutrophil Abs (test 1.69 K/uL 1.70-7.30 L code = 751-8) Lymphocyte Abs (test 1.16 K/uL 1.00-4.80 code = 731-0) Monocyte Abs (test 0.34 K/uL 0.08-0.70 code = 742-7) Eosinophil Abs (test 0.07 K/uL 0.04-0.40 code = 711-2) Basophil Abs (test 0.03 K/uL 0.00-0.10 code = 704-7) IG Abs (test code = 0.01 K/uL 0.00-0.04 46354-0) NABIL (test code = NABIL) Please schedule early AM prior to new patient visit. Lab Interpretation Abnormal (test code = 87191-3) [facility].[id number] 15:21:50 Test Item Value Reference Range Interpretation Comments WBC (test code = 3.3 K/uL 4.0-11.0 L 6690-2) RBC (test code = 4.50 See_Comment [Automated 381-1) message] The sy stem which generated this result transmitted reference range : 4.50 - 6.00 M/u L. The reference r bryan was not used to interpret this result as normal/abnormal . Hgb (test code = 14.9 See_Comment [Automated 448-7) message] The sy stem which generated this [...] (test code = 52.3 fL 35.1-46.3 H 29730-1) RDW-CV (test code = 14.5 % 12.0-15.5 788-0) Platelet count (test 78 K/uL 140-440 L code = 777-3) MPV (test code = 12.3 fL 4.0-10.4 H 89806-4) INRBC (test code = 0.0 % See_Comment The INRBC 12399-0) (instrument NRB C) value reflects the enumerationof nucleated red b lood cells contained in a 200uL sampleo f whole blood analyzed by the instrument. Thi s value maydiffer from the NRBC v alue reported in a manual differential,wh ich is based on a 1 00 cell differenti al. [Automated mess age] The system [employer] generated this result transmit lev reference range : <=0.0. The reference range was not used to interpret this result as normal/abnormal . NABIL (test code = NABIL) Please schedule early AM prior to new patient visit. Lab Interpretation Abnormal (test code = 31263-7) [facility] LaurelPathology Outside Interpretation 2022-03-20 21:18:10 Test Item Value Reference Range Interpretation Comments Materials Received (test d6pvpOCfTXRrwFGyDyQk code = 9973) GJYoXIOrd8ocKCXjjYOe ZzEwMzNcZnRuYmpcdWMx TSUnCuMhb9fjf948nXVd n2wzZMHvBzL8iSPcDMKa yXVzT990AJHrTKpoy9ji v6JaYACeuOBba9W8YBTF ybcnpXd0zEvtV41bk3X3 AfayQ8vlDZUnFKYgP7Jv YX5eBJSnNot8AXL3HHV4 QMDtZAOsE3MyHN9xWPAv lDZtAXr7y7zvdFrdFMYe NIH3m3rdRYnxbcJpAA6h hs2xiCx4n4kpqgTdOPXe MHSxcSLSVPTeH6SteXcw Fv2qiCv2fYafDsecNXZ7 Lcb1SM1rkc40ksd8nGws YCKbskiaMsT7LYxaHLTs jussMXj3BMtjYZCuoMov MFxtYXJncjcyMFxtYXJn yFA4OJZrrJMwX5WrQWHp CZxoMINggsf6DiCvKb4g fHPeoVusFLvvh0rjr4ul yQEdQyn5YLQgYuQhHnkb KFkyx0Ynr4gzFIIsfx0h YIC5rRApbGouz5H2lCGi WRUutIZjuhYgUQFvlg99 uHEbeDCqnMOnax4vyaHa qWBvfGWeBWI5fGDuyfYo TMLquTXvKITqSW1vtVWo PKRndM7rfuczFZJdIsMf njkdTUKjiLebxqPePv4c vTwrVCR6CIbjO2xxfU3y OkO6OPtxK7zdkQ0sGOk0 TYrcwTW5OLSzeG7jRF6i rerjr6zqItZiVG5korwr w1fhLrGqKS2aana2y6lh LOZ6DMuzUVStGfB7twH9 NDBcaGVhZGVyeTcyMFxm i825QQU9NbLiDDLxp4Xh J6DezTvqT43fpUntH17o GAAbwQwssW4krEgguR3l MeAzEgFhWMp3hr24OBd5 upftaUriGSl8jzIaREWh AFE4MVLioQSuFXKpM4y6 odKfFEZuDXO6ZGGduTIj WVGtN9f7qmZxEEY0ZZv5 cnBhZGRmdDNcdHJwYWRk YjBcdHJwYWRkZmIzXHRy gUZsxDBlzTQtuJ0wyJvd PLNryTVkyQ8sHCK7SOId cmgzMjBcdHJoZHJcbHRy kk72RQSpnjUhoWBkyZcs nDRqPIR7DIWaMCBfIYEh KHP0BETcLsYwvrCbSMyz bGJyZHJiXGJyZHJzXGJy FUE9ZYNzRqVzlxGeSZgs bGJyZHJsXGJyZHJzXGJy PUM5HAZcKuHgfxCuXJnn bGJyZHJyXGJyZHJzXGJy OZL2CVHsUvDhakGzGSqc bHBhZHQxMFxjbHBhZGZ0 V8vyqEDqVLTsINbsxCRy BRFbN9nqhVDrJTosTFVj cGFkZmwzXGNscGFkYjBc W4bnHUCqBzRwG7PbtYm6 MDAwXGNsdmVydGFsdFxj wGUaETP5FQVdVNIeNNTj RZN4ISPoIcHguvRfYYtg bGJyZHJiXGJyZHJzXGJy FKE8QMDyGfQzbtPkZPdf bGJyZHJsXGJyZHJzXGJy CVQ8NLEhAuPubgTzHBvx bGJyZHJyXGJyZHJzXGJy LJP7GXInGbTjcfLgIKvd bHBhZHQxMFxjbHBhZGZ0 N9ynvSJfYRSfYUbicWWr OTBhB4iujMTyAPqzKJNx cGFkZmwzXGNscGFkYjBc X8zqIOZbCwNxK5AlkWh7 NjAwXGNsdmVydGFsdFxj vALkLKQ7DTCdSZRmPKMs WGP5DXRzFeSvxeTnFSdk bGJyZHJiXGJyZHJzXGJy FEB7FYIuOsUuraRhVVfa bGJyZHJsXGJyZHJzXGJy DQD5TNOvVyJareThHFnk bGJyZHJyXGJyZHJzXGJy UKE7HRZrDjCzbxZfDMuh bHBhZHQxMFxjbHBhZGZ0 Q7gnrAPeHFPlSRayfLAa RBMcN8xloLToWRtcGFPt cGFkZmwzXGNscGFkYjBc B3vjKQUiVmDpB5KfcTf8 EuDmLNNjikXrqY00Crko u0VgGSNcISC2ISgmONjk bFxwbGFpblxmMVxmczIw EKmgbyuhMZKsXIgbJ7iy DaHpQDPxiLmjHWrng4Vh XGYxXGNmMlxmczIwXGIg NJJbSBWcxU5rGajhP4Cz uE3zSKdcKgmwK8ebGLTc u2ImeL3rMGxqjSZuwnus MVxmczIwXGxhbmcxMDMz UVwuZ1ypNnHiKDNfwHdh DMwpi9QyAXSzMKJvKcxa xiBfNKo8uzDeVKCxrZbo sATgLUubzcUjuKosk7Pp uwGxaWvsTLAvIWr0haUf hbqpgRo8sKGhzSkmHOXg sSadnP4jCgNpAsOpTIgw bGFpblxmMVxmczIwXGxh hbqkLKPxFLjlZ0mcDuKv CJJaqYfjCWpyq3YwKREp RQSnSgeihnPlRHBkI81p bGVjdGVkXHBsYWluXGYx XGZzMjBcbGFuZzEwMzNc aGljaFxmMVxkYmNoXGYx INmrI7jnHtXjF3OiDVMo YcNgkFPzZ2wcJ1FptNmx YXJkXGludGJsXHNzcGFy AEE8sTIxrwTraYGvmCNw UBRbTDzmFKR7mCEtkltu hVTbaowbXLkxijJ4ZTBg YWluXGYxXGZzMjBcbGFu ZzEwMzNcaGljaFxmMVxk GhYqYQDiNYoeD6ooRcEe F4UzIDMvHpGcEhGNCQAu aXZlZFxwbGFpblxmMVxm czIwXGxhbmcxMDMzXGhp H4vvNfGzTPIluPqqQYxg c6KrJDDiUJTkIrqbodQr QCb3clTmFDAhqBapdV87 Hupqyv38JOOyf2xlADEj B8SvoLKpMBAnsUAeHZfc MDhcdHJwYWRkZmwzXHRy cGFkZHIxMDhcdHJwYWRk ZnIzXHRycGFkZHQwXHRy aCXzDBG8I1k6uoCeCJCo OLd9llHfINOeGzCdnFMs DLD8ZYm3NvmcmlY2dNPd V7s8BlkjdcMaWVzzgAFb uw90TIHzrmQxaGKgbNbj dBDqCRI9UCBaXJSnEGCk DSH2STLoXmTpmnSlBXzn bGJyZHJiXGJyZHJzXGJy KNH9XIChUcAbzuSlBFwq bGJyZHJsXGJyZHJzXGJy ZVK1TRVuUbKndrTiBInv bGJyZHJyXGJyZHJzXGJy XOV7ZXUcYwOqzmOpUTfa bHBhZHQxMFxjbHBhZGZ0 I8seeWCjBBAtHImoeXQr ONPeN1wcjBShBVzdHAYh cGFkZmwzXGNscGFkYjBc V4teLITuOiAnR2GeyJd9 MDAwXGNsdmVydGFsdFxj pWHxVKN7WLByKXAxOEGy YOB1VGHpVrQepaTbMHcs bGJyZHJiXGJyZHJzXGJy ZVG3RKRcKvKmitMqJJyl bGJyZHJsXGJyZHJzXGJy VAG3HEMoMhCwbaOlXErs bGJyZHJyXGJyZHJzXGJy TQF3YMEwCjFyfcYvYQep bHBhZHQxMFxjbHBhZGZ0 M6edeGXkBXTfCYtmkJBe NTIrQ5cxmWXeJMwdJHTd cGFkZmwzXGNscGFkYjBc G3waUWOyGqKmZ4UwnDw7 NjAwXGNsdmVydGFsdFxj lWMgHVY8EJWfOMYfEIIv NXX0RDKlOvKnpkDtSNnl bGJyZHJiXGJyZHJzXGJy RMD3GNAtOdEgwxFgCOfb bGJyZHJsXGJyZHJzXGJy LEF4HVWiLnRsmgHsFKhi bGJyZHJyXGJyZHJzXGJy KCM8IXAsLsLsiiQgRJot bHBhZHQxMFxjbHBhZGZ0 F5xieLUjDPXqALywmQAr TOWtA5ajaSXpKVclZKOc cGFkZmwzXGNscGFkYjBc X8rkBWPuJsHlX8LifLk0 EyHnTONzdqLyxN27Eyxz k1IgMBYcRKZ4ATihXYvp bFxwbGFpblxmMFxmczI0 XHBsYWluXGYxXGZzMjBc bGFuZzEwMzNcaGljaFxm WNoiJsAcUKWjCLheW6sd EkAhK6UzUUBzBfEpGH4v WFWtSRH1Pcb9KST8BTTB OTCxUGDPM0VTJiivTDHW Z5IknPhoqJ2cZfVnItKq AKlwDC3rMGSrG3yljHOo PXIySDVvC5noMcOkoM8t aFxmMVxjZjJcZnMyMFxs dHJjaFxjZWxsXHBhcmRc rI71Jyeyg9TvLUScSAU6 MFxzMFxxbFxwbGFpblxm BTuuloP0BFRwWYpjVFXy XGZzMjBcbGFuZzEwMzNc aGljaFxmMVxkYmNoXGYx GRtfS3smZwNcD8JuTPSs YePkVn17BfLiSdRpaWwp rU5qQoPjWyUoOShlUN7j ESTmS2owzQXgYXTyZDJp J6spVkWthT6piRmpTJgz ZjJcZnMyMFxsdHJjaFxj REuvQWJhrnZtkF00Swuq t1OrCXHkKKM0FJudEPxu bFxwbGFpblxmMFxmczI0 XHBsYWluXGYxXGZzMjBc bGFuZzEwMzNcaGljaFxm AQwqUvWmJCNxCZbzY9wj AfWuC6IjTZLhSxOoTY1f CM0kVEHeSHCiKAlwMYLg XGZzMjBcbGFuZzEwMzNc aGljaFxmMVxkYmNoXGYx CFgbV7wqCyIbS2OlNQZe KtXvhEGuZ6pyW8SgyEqo loOroJbtc9ytcSGhSHyc n1NqgdGqbVovLYReJDYg XHBsYWluXGYwXGZzMjRc oLflhC1zHeEyCtHyZFtt OF6eIAEdC4whbRDuDFWb DSExM5riYdVkoS5fkCrc MVxmczIwXHBhcn0= Diagnosis (test code = c1vlsTDsGXPlvRS4JXDo 34) OBGtw1rjb9UkdJSxjZBw CYxplJDujvEizf25wNR4 yB19ZR7sQJPeEaJ4DLAn sfD6Fwx6WAAxEAFajTVv N969r7ncf3kjcuEbnJH2 TJTeQIJbB4LqUZ2hPOUl pZBuG2hdVGZkYAljdyXs heV8XYRsrPQ9VXq6RAYz cGVydzEyMjQwXHBhcGVy wZT9EFPtFP9ybplgBIvj HMceEGNjsvI0IIGzdNNo U0PzEMVcNF7kqkvjCBV8 UWzzZNRpVSI3SwTaNHNt c5Ollca5FeCzdFGvYIld bGFpblxmczIwXGNmMSBP uXWjtXTjHQt0SjDsPPv2 CQyuGXjtZ0KbYHAmDYTn VRagWR1WRXK8SPSGACia UfMlUm5EQYB0TSFpx739 in2jTVxfYWfiVNIGPF8R K0QvNHOgXBFSGLHfq9rm ORY3QDHxe16hVg12LjNw TxHcWVMjev1thJZ3ZADe uK8nh9qytxArJNSwM21m tYJxIAShTDLvwTmxb4C4 LEauGXPgT2ApCQSgohfw iGW7YIAsGjnfGJM7TVjp sL9qBElpBDIyDBhoEFJl Ac6rQOpvNeYgsDmkIbri YXJccGFyXGZpLTcyMFxj SzTtVNDYF1EHVYoNVLVY VE6YR1VHH2tTX40HYQVB IXCUM47IAXATA4LLPBut KDMrNCksIFdJVEggMjAl LJsNLLYLN17lFKLCGMMY RkH8HGTAQnURVIYQAg4B HCFnQFS4NZ1MXEVZH9WM LlxwYXJcbGkzNjAwXGZp SIE8MGNesPqsJaVeSIbq YXJcbGkyODgwXGxpbjI4 ARXnL4KrLAEzZCLXrMfy yWWyxOD2VTGhqorcBXKc IvcaErNyRSDuYEOHBc0R WIZGVNGcMXPLVh7QEQWT NG9WQLCbEAsVFMXMD32p R1DRZfNdYiBaFah5BUqy C5gCOMSdARWzF2dVAGTJ TiBQQVRURVJOIDQsIEdS VEIJLPhKL0HQVUWjFWJr RK9qZt1OJUWsHBYhllit GkFijXTiMNIfFJI7XGIv Y5WjODebUKJDVTQ0RHui dGVyYWwgbWlkIChJSEMg IHgxKTpccGFyXHBhclxm zD06UwXlO0YnQWSBM5RX XAFECqZNXLOAF3YJGiRZ Ow4DRYmkZ5iPMFWMXhJS E75NQTK4LJfhXgVyFXMI AEKSSTQrSAVKTKGEO35Y WPPBPFZGBp5uPHiqX1TY HUMeL0YTVEEsPgjoUsVY TOLCA5KLQx7pL3KGVIAS AF0CIfMyUUToswbpBMAs G0YASqNHFf1XISWZZLBC Q35PFUPHZXNDKc8jPVVD JtIQQD8EJhCbrNLaTSQf LJS1GYXpW7WmXIOkcoTR MzPnXjatiZRfsMM9PDUx bCBtaWQgKElIQyBYIDEp OlxwYXJccGFyXGZpLTcy IWmkUsGrDEPRE3SPCToP CSHKGT9YC7BFH0mHG45Y IAFVCMVXN05MASQME8ZT IDcgKDMrNCksIFdJVEgg ULDeT9qQSJECWuZLKOHQ RVJOIDQsIEdSQURFIEdS N8GXGGLxTMbAA2CkFLyO KrBuWS2HGIGMD3TVBcPb N2ZEKVWUZY9LJyAcVYNv qtuqhW8xHSLePBYxNGgf YUJeXw7iFWxiFgLtpRF0 ZWZwjMGntQO0PoizKTFf cGFyXGZpLTcyMFxjZjAg MXACH3YOYSzZXSTYRK8B V0EEV6bRT73UMPYQBFRR R04LLLNMQ7EBFVCcACGu FfqrXGfEXDBKBRdQM0CT RLDiQJLnOW3eWs5VFGZo XHBhclxwYXJcZmktMTQ0 MFxjZjFccGFyXGxpMFxm aTBcbGluMFxjZjJccGFy NQTXD7OENtTxaLTsmA== Comment (test code = z2gxmYGuGLPjhSG1OLHc 9880) ZLVlh1drz5DpzHDfySDk RAqbrNUxtnSayc87mWJ5 bR19VZ6jITBlHnR0XYFb joO1Tvt4EIDbIBDsdFPi Y876g7exu0nowfNgyHW0 HDApVYBfR7UhGJ8eEPJb lORcV94rtVUaHHI2RWFk JUSooZBdTEDxFXL8EUJt yNLzO3okKBXcAE0izsqb HHayWXdwXCXluIJ8OGYq iFXbE1QyBNYdPCtlVGPe ebu2ToApKl9jhYLesRux MFxwYXJkXHBsYWluXGZz MjAgUGFydHMgQSwgQiwg WN7AVLZDJUnajrFhme55 OLEqB8MhvdLcVSTcgzWg LJXpKTryHFIlgbE6jCXq hnIic5I0PW4jYYSbQMLd g152fwgueBArkrftbWB5 gU8jt3sdd1KueNryr7Sw m9BoU7phJE5kDIGtQN3a iLFwj439AGecUCV8dY4p LiBccGFyXHBhclxjZjEg ABciNDRaa6EsPKMiSBON TiBUcmlwbGUgKENLOTAz KZMqVwAhHA7wYCR4XSEP JYFgoTy2yMWlGWmmq5Yz bF9aOMpnDoCsb1WqyN6d kHFsPy03RDGevRSfyc9c ZXMuIFxwYXJ9 Biomarker Block(s) (test j3ppwNBkCMMsfCA8OUOu code = 9841) JCXkm2fon0WqeSQlsPFa NDvnxEMtfeIsug34fOU2 jB43CY7gQUZdNaK9IYEx jaS3Cvr3BRQgFESceQAy I515h0lqb0ibnmAhgFA0 aQwoVLGhyxasNiR7NGbe KWRcehfhBKz4XCtaQKXk rJI4JXGhwDShV1ZrIVAi WG2fikz3LCU9JXtiMKVl ScO5TYQqiGXxNWBhjOyd JTyka148FPX1FiAzNAFj laPcuCxvwQ0vEcXhBZZQ xlpmRGN7VYV0wW1nNQGm v8WgKeXIEBNhtzyzIYE6 Disclaimer (test code = v7wwgWXwACAicKKcHkYt 9844) XSXuJTZkd1qgAAPzaOBx ZzEwMzNcZnRuYmpcdWMx UJKyAyIkv0dkk395yPZx y5vkNIQqRlR1lJElSKSg aYFiK574OHKkSFfkx6qv v2MzJEMwgFIgk4B0CRVU zwzizPg1uDshW75mr3M5 AhoeZ1crEGFqGYNdX6Aq MJ1oLKPrMvk8PFH7FIE5 TMVkYERrW1IdUM7mFPHy fSMaGTf4g3azmNprIVYf EGL6b7tmGSykgyDtIU1p nf0zyPb5a5xhdeNsWIEs EPVdjRVEMEFmR8QwcWgg Vd5xmAq3qOioYrlgLFE2 Eyp5ET2kgl99ext6aJxh SMOzdockWfN1SHdrXOAt ezlhOLo2HJxgIIXyqUT9 QCKqiYRdD3EcNEGtAE2k zes0RKO3KXmdZHTuQnF3 NDBcaGVhZGVyeTcyMFxm s382IKW3TpDlHD9eZ8Cd v9Y4qJ8ajTWrSSNetTMm NcVoOVTnjj3baIVxWOoh z0OrFGS0bcK6nFXwiVBs KLPvNC80Ovvhj8ZoFcyq FOD9RQSzkuVxw2Nze6hs GsKdwbAzI3kmN6MhPFSr GVRvVFBzZgWsatQnj3Ff u3KaxEOfgRe9b7rcPHVg VVTxgRoym6lvHLF3WCJr B1M5rKAuv8irPDhePFJu jKK1poU9USBhqRKfU6Yo oN2sQNVlJS8ucha9r4zt JLJ7MWilAXRmAuQ7isX5 NDBcaGVhZGVyeTcyMFxm d346HJH9DxIxRVXja2Tj Q8PciTgrF31dnJeoL86n VXXzpFavsT5dtFujlD6w ZjBcZnMyNFxxbFxwbGFp jncuGNhcilW0VCmieaxa GNBoXPnjI5baDuQbCPOn sNjnVApzz4NoNBNrFLYa WqbkqtU7AFOEg76lPFLi r1ZpTMPmeX1jqXAcNZeq qhPecAS3OUlywcWaNgDj uaQkUSMatH8eHWUzTP9h KQUljcDbxe4ycnWaOPLf AYOjO2UnydbftRhwsjSh SGDdjr5avrMdVXR9CEGA IY9VDJDvQXFps20nTRJh qWigyJ8bmCYenqYtNNIq p3CvjH8vrOTHBOMvV7dx JV9nMQkxe1VdwSGesEHs sZT9PHNru5NfTtNlbnMv xLBipXXtA9VmiZisT0yd RYNuRIStzlIxxLYus8Pb VNQbfXT5iKNmBT0KNpZS h68aJFOiICLJjqSiATBh bEdbdOX8ztT7xI9vDlBP ZiBhcHBsaWNhYmxlLCBj d730jw6wecM8JBKjJDXl dxuwx7LaTSZyUTRmoX63 SJRsGKUzix8tnwhmmGAt ziDcD7Bmroo2fZ5uLRNl YWluXGYxXGZzMjJcbGFu ZzEwMzNcaGljaFxmMVxk ZiYkRMVqSYpbW6iyVsTm ZnMyMlxwYXJ9 [facility] Outside Interpretation 2022-03-20 21:18:10 Test Item Value Reference Range Interpretation Comments Materials Received (test d0qfhEPyQHLduSFaHnVf code = 9973) MUZmWKKxf6lsZLXonFTp ZzEwMzNcZnRuYmpcdWMx TCAdXpXbe1mgl089nHTz n1ivEZSfRjG3mGMrLPBw xRDwA685EZHkYGuzl1ar k2BhWEAfjQVns6P0XIKI wpnhcVo5pAwjW97fi2F3 MnekZ9hjAGZnHJAnY1Eh TM0rJGByVkh2YDQ0VHG2 BCDlPVGaB5QcWE8mKTRg fOXkBQo2s4bxaZhfPMBt FIR1n3jzGWsmeeQbMU5k if0ubWp2y1zijcXuKIBh HMXuyNHXVYRxC4JnaLcv Eb5wiAa9qInqMjaeVIH0 Xnn8OO5gse07yff7iCjw VVZbiiiwVzR3PJixFNDp hggqELg3GNorVPIcxXng MFxtYXJncjcyMFxtYXJn gTI8YLWauMHcE0YiWYJo MNxjFSKtgyh5ZeNkVj5q lQHjtZvpFStgd8oep5fh qUEnLpo7PGZoTmIfUcxu LMyji9Bjg8qrIDWrwq0m OOS1bLDczOxde0B5dNXz HXAmfYDyjpVwYHFwre81 qETqbQWwfFEekl9gyqPa iUKbdXDqZCX3sNQfjoVm LWGviSZjWBLbUV4rxYPp GNAavE1uhhxlXGRuQlZo qdfvMJAivTcomdBsEk0b oUwtIVO4GLktO9rslH9j OaW0DLnqZ5ccqD6wOHx8 VUiqmIG9SMMgkG5vAC3e eviic8rlYrFpGO6chlup t0ggWsZyAN9rnru1w0yh CLK3BJovXDIvBwF1xaX9 NDBcaGVhZGVyeTcyMFxm d542MYK7LaQfKQCcr2Ew F7JjfDuzE08igOafU09r KGBqwJvokR1dvYxduI6f McAyGmNlDWf0hb28GSt9 olmrsYenUGa4uyNsISNr HAD0OSNpeSRvGXQjJ4m4 puZiUPIwDPI2OBClmMEr GKYqL7g0awVkTUS3WQz3 cnBhZGRmdDNcdHJwYWRk YjBcdHJwYWRkZmIzXHRy fFBmySHvjPQjiS7koKxt QBYqySPzyR6uDPF4HLRg cmgzMjBcdHJoZHJcbHRy pm88NTZreoZbrIRcwYkt lCSgPTV0TFBfOIOlBGUg TMU8DXTxKnCwiaAfPRgu bGJyZHJiXGJyZHJzXGJy KMP2YYCyFmHjcsXiNRlz bGJyZHJsXGJyZHJzXGJy KPZ2UODaWjUugqXoAUth bGJyZHJyXGJyZHJzXGJy NTL8HQKhOwXxliGfVUhq bHBhZHQxMFxjbHBhZGZ0 F0uuwHDvIWXoPYkmvIDd LLAtQ9hgrSDeXChbNBKq cGFkZmwzXGNscGFkYjBc C0usQSZzGgMuC0DljTw0 MDAwXGNsdmVydGFsdFxj jIFvJHR7GHZeUKYoPAGf WGZ4JNEcGiZcvmAtEJmx bGJyZHJiXGJyZHJzXGJy DCM6QHSmPbTudyOaTHvx bGJyZHJsXGJyZHJzXGJy LDB4ADNuJhVuyzIaKQbu bGJyZHJyXGJyZHJzXGJy GSP1ODRbZlZwdvHfZYsx bHBhZHQxMFxjbHBhZGZ0 S9pfqXGaWFNrYTinnDIx UTEzD6xggJDiTIztRRDu cGFkZmwzXGNscGFkYjBc I8aqOTBkPeIqP9KxeHh8 NjAwXGNsdmVydGFsdFxj vKAfWDD7ODXzVEBuPJNk PHQ2WFXxVyRmqcEfZKff bGJyZHJiXGJyZHJzXGJy ZBU1HFHbBwUcmzDwFZdl bGJyZHJsXGJyZHJzXGJy QIX6MALqLoLsfiIfKJgx bGJyZHJyXGJyZHJzXGJy UNS4NKFfIaYijaYcVLpw bHBhZHQxMFxjbHBhZGZ0 Y3ccoUOwGJTnSIxhsQUo JHWfC1zjaIUiEFcoSVHq cGFkZmwzXGNscGFkYjBc A1rjCFDuSnYbI6SwiQk4 NxFfKIQsmyZrmU46Ukob h9ScMKNcXYQ1QIcgGRtn bFxwbGFpblxmMVxmczIw UJsvzqejNOMoUNqpN7nq MsOfAGDpeJmgRDuoh6Bq XGYxXGNmMlxmczIwXGIg PRFcCXEohH3kMpqgX3Xz oB8tDUdrFrgrO0hvZNTr r1WdtL5uDVxgmTPvszhy MVxmczIwXGxhbmcxMDMz IEtyT4llDjGcAMGkuVvx DZptp0NpGFHeANRjQqxs jrHiJBd9ylThRJJsaThb uXOpQNvzsyHrcYnsy2Wu pcXprKspBXXwLNr6fuPo hwzgyTg6dFKlyMqvYFZu iXfrxW4iKdYtHnKaNSuy bGFpblxmMVxmczIwXGxh znpyBSTiYQjqG7tcWvTa IJQxkXibCUvli8SvPFAt QPZvOlgjvgQlZEFoA07b bGVjdGVkXHBsYWluXGYx XGZzMjBcbGFuZzEwMzNc aGljaFxmMVxkYmNoXGYx ULlwK8ufVfKyR6DjFQNo PsAxlBAqY2fsN9AymNxm YXJkXGludGJsXHNzcGFy YWQ0uPKuhnNcpQSvhQZv WRCfLIvbFNY9dLPizpwp tSMjamnoRAymhiU4VCTl YWluXGYxXGZzMjBcbGFu ZzEwMzNcaGljaFxmMVxk TpEoJXSsLSasF0moMhMu D8DdDFHyAfVcIxGMJGGr aXZlZFxwbGFpblxmMVxm czIwXGxhbmcxMDMzXGhp I7bgVoOqLKCqpYmcTCrk k8HwLCGwVQTyVmedsrHm LOm4qdRkFLGafHfosV83 Otwjcy26HMBpf0cqGHBa S0DeqPQjXOVmaEHtQDnu MDhcdHJwYWRkZmwzXHRy cGFkZHIxMDhcdHJwYWRk ZnIzXHRycGFkZHQwXHRy oLSdNKD3N5w0hfCqENKp FDf9zlQaPDXtQxHptTHm KJE4ZMz4FmaalpY5vMTu Q5a3OrcsbdRfQJfswHQx do85HTQbomQqqQWpeSbu kODmBIQ5BTDtMITkFXWw ZTY5NKFnEyDrdtKeEGql bGJyZHJiXGJyZHJzXGJy YWO4QWNeRsJnbcHcONzd bGJyZHJsXGJyZHJzXGJy IRG4INIjKoCmpkAzUEwu bGJyZHJyXGJyZHJzXGJy ZDB1HFAbYgNiyvBfNPkt bHBhZHQxMFxjbHBhZGZ0 L8dfwDWlKXEhDGfprEWq AQAxR1dlkQHhJZxlUBIg cGFkZmwzXGNscGFkYjBc J3acLTKuIrIrY3JcfHc9 MDAwXGNsdmVydGFsdFxj eTCbBGC2YIEmOPUfFIQv RPE6PKEtZoVjpuVfQPkk bGJyZHJiXGJyZHJzXGJy CTF6WTMeTfQoaqAeJUfj bGJyZHJsXGJyZHJzXGJy GPR9BJFpWvPpxjBpMQag bGJyZHJyXGJyZHJzXGJy CZJ8CSQvLsWydpUsLUqg bHBhZHQxMFxjbHBhZGZ0 M8lpeHLmMYRbKMgvyOMs BELuQ8jhvRFaCLzqLCXu cGFkZmwzXGNscGFkYjBc E9uuXRPaZfAnZ5HcxFl1 NjAwXGNsdmVydGFsdFxj rRRnRQH7VKQaSAVaFPUl EPH3DGAnSyXfknUaYGfr bGJyZHJiXGJyZHJzXGJy EVF6ZNEoChQpamEdWNzv bGJyZHJsXGJyZHJzXGJy YJS8ENFtIjIelwEtJPtv bGJyZHJyXGJyZHJzXGJy QZR8PORqIfCnxyHiFIkc bHBhZHQxMFxjbHBhZGZ0 W3qdjONpNIYoDIvzzPAs WPNrU7zteLVxYElqPENy cGFkZmwzXGNscGFkYjBc R2ydDERrTcQiX8TohRv2 RhIgLQFsqdKigJ75Zuug j6LoIGVjGAI2CNfhOCnc bFxwbGFpblxmMFxmczI0 XHBsYWluXGYxXGZzMjBc bGFuZzEwMzNcaGljaFxm FPjxCoEiGZErGSgeM1so NcXrK2OiGLMvAhNaLD4l IFTxMBQ3Ulc9NMH6NXKM MKXxKJBQC5WHNhlfYEOO C3UtkAhzgM2xFmOoLnVc BQzkAG2tRDCoU9wtoCZv VGUzULJbZ6zgDaYubG3c aFxmMVxjZjJcZnMyMFxs dHJjaFxjZWxsXHBhcmRc nM35Npiqt9CwGXHnEIA4 MFxzMFxxbFxwbGFpblxm HTkbneA8MLHwVEcvMJLe XGZzMjBcbGFuZzEwMzNc aGljaFxmMVxkYmNoXGYx PRfjB0fhOgPbQ3BsRQEz QhFqJp74BuYmEyEpuFiq wX3gZoZxAmQtUVgrHI0a RYIxG1eqrPKuJZXnXWHj N6ujJjAbxI7rbJfyQEsz ZjJcZnMyMFxsdHJjaFxj DWkoFEGvsoHugL73Efsp p6JiBDXiUZE8VFyrJMro bFxwbGFpblxmMFxmczI0 XHBsYWluXGYxXGZzMjBc bGFuZzEwMzNcaGljaFxm SPguZdTmQFFaBEeaE7ry ZeQuA4QqRSShAhIxNO2q CH5rTNBcQWNrJRwhSRWc XGZzMjBcbGFuZzEwMzNc aGljaFxmMVxkYmNoXGYx QXnwX3cmLqOdB8QoPEOb EcEmfDQsN8zpT8HozPog doKheYyoa3dhwPHnCTgs z8UlqtUpzTtfUCFrNYRx XHBsYWluXGYwXGZzMjRc lEdacT2zEhNaJbVcTGlt UY8fFZVpP3lmrQOiFBQh HLBhX5clAvWsqN2zaKzh MVxmczIwXHBhcn0= Diagnosis (test code = n0xskFUvHVEyvDJ4DJQr 34) QZUwd2qlx1QroBFclCLa LHaorLWumkBaci97yAJ0 eV43IG8hQACsRpP3YCFf xzQ2Hhd4BWCtBSCfuRGl Z555t3vno3nsraShsIP0 UPEnXDQhD4OnWN4rLNJc kEDyB3kcRIPyNWgghdNo ooA1LFQgnYY3DEe8TNFf cGVydzEyMjQwXHBhcGVy aPD1IZCaEA3sgpvgFZlz WAjzLNOvuwQ2NWRfpMEq A1GuWUYiAL5carqhPFH9 XRotZHSrFKK7ZfEuSFNu e8Nacil1LvYyuYCwDBwf bGFpblxmczIwXGNmMSBP eNYlpESyTCr3EuFpTMu5 QTvfIQybK5DjEWWtTNHs VPivGV2XTLJ4WKNSULof TwVoLm8YBTV4LCCov144 uw3wWHddJNmjHCXABB0Z Y0RqDHDmSIXOTKZfx9jq ONZ1WTEna47dSx63DwFn QiGhMULnkh8qoZY1LRMa hE8zq1lkmlCoDCYcF87x jAVgEHNuIWQldDzdo1M4 KPliGUHkH6YwPTQfzybm jVA9LZJrOvkdBUG3OCsx sA6vPWfiMBUoCGltNQXy Ni9jCNthQwRmqEaaWvub YXJccGFyXGZpLTcyMFxj BqEnOCYNB6VCEJrHFLTO DP9SD2HFB8zRJ95SJLXT SHXAA66LIVZZG5NUKMvq KDMrNCksIFdJVEggMjAl VCwYXNMDT47dPSVJGBJE QoM8ZZVEWnRKSUPZQm2F LIFrLRV9CR1BYAQTR8WM LlxwYXJcbGkzNjAwXGZp IRR8GTUjlWyyOqUeLMit YXJcbGkyODgwXGxpbjI4 CCFgU2MtSKDfOYYWjTuv zOAgkVK0PNDmzlxcRZRh EkmsQkOyGWXxZUPSDy0E FUBYDKTwAHHNEo8UIVGK FU3FURXtIZwUIAYFF67e A3OVJaYoJsNzWqi1FDmb T9qNMGCwEICiR4iULFLL TiBQQVRURVJOIDQsIEdS FUGBUQmEE3MGEOCcDAFj ZP0gJf9BNIJbIFGjrmgs PuFeaHTaDXRfPOF3QSCz D3JhEWurVKPOHYK9HVqy dGVyYWwgbWlkIChJSEMg IHgxKTpccGFyXHBhclxm eE52UqPbV1OnOYECS7FW XDXZPaHRPXAGS2OQJgZB Ki9ZTAmbO5eUIEVYZoGB F66BWQC8GAwmJdTqSYXK RUWCDPWlEIBDMSZFP09H EASNKDMGXy9nTWlwZ1ZC EIPwJ0PXEXSgToxfImOJ UOCDW0ZDUl6uW1HITCYG WG3KZzXyWKXtmnwuSTAr V4RXYeRRWm5BXCSEDHBF L48JTHIXIHQPUx9dDXUK MrZBST2NKgPvqPMnDSPv AQS7GAYyU9XlFPBgaeJB YzZkJvmduXXyhRF8UNCg bCBtaWQgKElIQyBYIDEp OlxwYXJccGFyXGZpLTcy YHqzGbJjPTEVZ8PCDJgY NFWNVM1OW1WZB4aHH75Y XBDBIWOTO95GTUQGR1OC IDcgKDMrNCksIFdJVEgg WGIsA2pIEEVYXrEXXCEE RVJOIDQsIEdSQURFIEdS E1IBAXJfXXuVX4ZzEKzS MrUvTY2TDBTYX9PYMaBf Q3TKBJRNSX4ONtUdELTb epxywQ7dGJUySQSrPIqd WGGwYu0sPYlgFoFdnMX0 DGEttEHfrHA8FptkAWXw cGFyXGZpLTcyMFxjZjAg AIMWQ3BPURzKLWTLFH3M J7OIO6tHI30SQLCXXWCG A98BIIQUL5KFPZOjIITb GbtqBFpVIGXKAYgKW3SK ATDqGYMbIK5aPm6DGGSj XHBhclxwYXJcZmktMTQ0 MFxjZjFccGFyXGxpMFxm aTBcbGluMFxjZjJccGFy ZCQHO2UELqXjcSVyaW== Comment (test code = e6jxnEKeQDOskPJ4LNFz 9877) OVEcs6aau9UrfVMxcZGl NWgauOMkxyRjal90rZP6 oG41IT0fNMTnBnE2IVXz hjY1Eor9JKOzEEBprTVz X315x6vqj8xyhfMutZD8 QUOqLVFzC3RpAI2iCDJe rTMlF27zmCSdFOZ0KBKq TXNixGXqIXZrZLW1PRKq nRHaP5oyIEAaHN6zwbjq QExiSMywEMOkaJE4ZNAg yWBbK2QlERKaAGckFWEo jar2HuXqZv6nwWChzJch MFxwYXJkXHBsYWluXGZz MjAgUGFydHMgQSwgQiwg FO5KPTGRYRowmsDkhb29 ZTWtK9ZocsCqIVTatdBv YJBuQAxeYQEuypT1iYXu hqGxt7W5NY5yXTOsGVKg q202wraomXJqghthxEI7 fQ4ek1uph8XdyWfrr7Ae l9DdJ5qfXK1vBQYvEU0l uYMam655OFmmRIA2tW2o LiBccGFyXHBhclxjZjEg JKhfDKFbp7TkRRCjQVZB TiBUcmlwbGUgKENLOTAz OUWzGnJhWX0dQSV6ELPG OGPrmXp2nQCyNKjrj6Rq wW6fVPexRpSxj3VapY6f fVRcOi42CIJodQEpqs6d ZXMuIFxwYXJ9 Biomarker Block(s) (test x5kunDSrDZVkaRR4SPJp code = 9841) WQPql1jlk3LpaOLeqUIm WCkzqFVyqrFmmx68nEH1 wT43WD1uUDPcYrZ4BNYw guB9Gmz9ZAGjHBYgiBRs X522m0tlv0glywAdkXX0 rMsoMUVvqxnoStK2LHjz VYNtuyvaJTj0DYmiRTXh lGB6EWMrxXLzW8FtKGZd MO5zxol5AKW3AXvfOLBk ZdW3DJUntTQeGQVvvAar RYlmt452GMY4SxGvLIDd pmQalWqrdA3bPwJzVQVO fclqPKS2TQB4xS8mSOQz g5TlWsILWKOmhwlmQKL7 Disclaimer (test code = s5fzaJMeUCMavMLpCiSh 9844) KZIeFQUkl7spWMZlsBCt ZzEwMzNcZnRuYmpcdWMx CXJkXtYjs7rhm867xKKn e3tkEYQfPvI2mLBdPBPf uZAvE493OMLoEBufr7ww c9CbYGRbcKZsl5N6JGRO zdjccWq7sRctQ90vn6Z0 SnvpH8lgGIFrCXThM9Bz CX3tHRXdDvl6MPC2EHU3 YUJqYGTqV5FzSV9qMCOm nDIgTLz6e9llcXtyWRGs ILI4z1vsOKhlkkWjYI3x ie2cmKy7o0dborQkJXTl DDVobWFOZTRyO2LxiHoa Eb3tyVn4eOgfDahqWMP7 Qtl8GE9qhp01eic4rGgh EGUoitnxCdD7ZNjqJIMe biwiRSq8JLxxERSinLN8 UNIjyRHcX1QzDNAdZP2o iiu4HQE8JOkfOOVtYzQ7 NDBcaGVhZGVyeTcyMFxm y988VNU1UkFsAQ7bJ3Tz t9G5fS9dkLJrENVbdBNo XsOzOWVilj4afNHdCFqx p5JfKMJ4qsM3qPAyqEEq VIAyXL75Ywchk4TdVhpy DJB4FXCkpqXii8Csn8mn LlYwuoQqQ9zaG6ImGFAn UZInICOsMkCnznQzi7Xp l7ColNHbfFr7m8diAJQa HJCarZzfi6hnCSN1AIQo A8V7iSIbd7dyAOatYCRw lTU2igY5FXHzhUNvF4Ol pI4uPDRsTG6xkue0i9pp QDB5AYhaMNYlWbZ5aeR8 NDBcaGVhZGVyeTcyMFxm c619YEC3KcMzBDCzl2Gw P8WrjSbkK60klEkpM25v SDOarNkvnG0ovSujrJ6n ZjBcZnMyNFxxbFxwbGFp gtxgLKafosZ7KZpcsbaj ATWhXBnsY3rgLvKqBKNe hTqdXNrai0SzZCUhGHQv IwmldgO6HMVNl07zVCXo h2EzSGZsaE0juLMxYOgi hwFhsWE2PShgnqKgNvPx leWmXIAlzA3tNOWgYA3f OLNxyjLtac9hspLqKFWw DWTaU8ZxzssptOkvwrRk QAGfbf7hlrKqVZL6BUTI SX4EWZXdXWBmo21iCEFa uIedvB3ipIUrqmGhOXWu i1KddZ2cnNIQMCMgK6pz NW6gTYvmp0CupXSndFVm pMZ6STMhw6AmMyBqavBe iBAczHQeE8WvgGkcF2pv SQAxLZMmyxAdqFMys4Aq YHGdtUS7hEMfMG4AQaUM o05zSURtWJFRjwZpLRKz rKawpBX2lgF7xA0wDsSN ZiBhcHBsaWNhYmxlLCBj d002sv8spkZ4IDXqLTHu imhzh9UwVELsVJApiP10 EADjTWVoby4xiapptGBd bnHxW2Ljovr8kO3oJPCm YWluXGYxXGZzMjJcbGFu ZzEwMzNcaGljaFxmMVxk NxCpTPJyIQltO1pwVlXt ZnMyMlxwYXJ9 [facility] [id number] 20:51:00 Test Item Value Reference Range Interpretation Comments UA Color (test code = Yellow *NA*(02/08/22 3:51 UA Color) PM) [facility] AND [id number] 20:51:00 Test Item Value Reference Range Interpretation Comments UA Turbidity (test code = Clear (02/08/22 3:51 UA Turbidity) PM) [facility] AND [id number] 20:51:00 Test Item Value Reference Range Interpretation Comments UA Spec Grav (test code = UA Spec 1.021 1 Grav) [facility] AND [id number] 20:51:00 Test Item Value Reference Range Interpretation Comments UA pH (test code = UA pH) 5.0 1 5.0-8.0 [facility] AND [id number] 20:51:00 Test Item Value Reference Range Interpretation Comments UA Protein (test code = UA Negative mg/dL Protein) [facility] AND [id number] 20:51:00 Test Item Value Reference Range Interpretation Comments UA Glucose (test code = UA Negative mg/dL Glucose) [facility] AND [id number] 20:51:00 Test Item Value Reference Range Interpretation Comments UA Ketones (test code = UA Negative mg/dL Ketones) [facility] AND [id number] 20:51:00 Test Item Value Reference Range Interpretation Comments UA Bili (test code = Negative *NA*(02/08/22 UA Bili) 3:51 PM) [facility] AND [id number] 20:51:00 Test Item Value Reference Range Interpretation Comments UA Blood (test code = Negative (02/08/22 3:51 UA Blood) PM) [facility] AND [id number] 20:51:00 Test Item Value Reference Range Interpretation Comments UA Urobilinogen (test code = UA 2.0 0.1-1.0 Urobilinogen) [facility] AND [id number] 20:51:00 Test Item Value Reference Range Interpretation Comments UA Nitrite (test code Negative (02/08/22 3:51 = UA Nitrite) PM) [facility] AND [id number] 20:51:00 Test Item Value Reference Range Interpretation Comments UA Leuk Est (test Negative (02/08/22 3:51 code = UA Leuk Est) PM) [facility] [id number] 20:51:00 Test Item Value Reference Range Interpretation Comments UA Sq Epi (test code = UA Sq Occasional /LPF Epi) [facility] [id number] 20:51:00 Test Item Value Reference Range Interpretation Comments UA WBC (test code = 1 See_Comment [Automa lev message] The UA WBC) system which ge nerated this result transmit lev reference range : <=5. The reference range was not used to interpr et this result as kellie l/abnormal. [facility] [id number] 20:51:00 Test Item Value Reference Range Interpretation Comments UA RBC (test code = 2 See_Comment [Automa lev message] The UA RBC) system which ge nerated this result transmit lev reference range : <=2. The reference range was not used to interpr et this result as kellie l/abnormal. [facility] [id number] 20:51:00 Test Item Value Reference Range Interpretation Comments UA Mucus (test code = UA Mucus) Few /LPF [facility] [id number] 20:51:00 Test Item Value Reference Range Interpretation Comments UA Color (test code = Yellow *NA*(02/08/22 3:51 UA Color) PM) [facility] AND [id number] 20:51:00 Test Item Value Reference Range Interpretation Comments UA Turbidity (test code = Clear (02/08/22 3:51 UA Turbidity) PM) [facility] [id number] 20:51:00 Test Item Value Reference Range Interpretation Comments UA Spec Grav (test code = UA Spec 1.021 1 Grav) [facility] [id number] 20:51:00 Test Item Value Reference Range Interpretation Comments UA pH (test code = UA pH) 5.0 1 5.0-8.0 [facility] [id number] 20:51:00 Test Item Value Reference Range Interpretation Comments UA Protein (test code = UA Negative mg/dL Protein) [facility] [id number] 20:51:00 Test Item Value Reference Range Interpretation Comments UA Glucose (test code = UA Negative mg/dL Glucose) [facility] [id number] 20:51:00 Test Item Value Reference Range Interpretation Comments UA Ketones (test code = UA Negative mg/dL Ketones) [facility] [id number] 20:51:00 Test Item Value Reference Range Interpretation Comments UA Bili (test code = Negative *NA*(02/08/22 UA Bili) 3:51 PM) [facility] [id number] 20:51:00 Test Item Value Reference Range Interpretation Comments UA Blood (test code = Negative (02/08/22 3:51 UA Blood) PM) [facility] [id number] 20:51:00 Test Item Value Reference Range Interpretation Comments UA Urobilinogen (test code = UA 2.0 0.1-1.0 Urobilinogen) [facility] [id number] 20:51:00 Test Item Value Reference Range Interpretation Comments UA Nitrite (test code Negative (02/08/22 3:51 = UA Nitrite) PM) [facility] [id number] 20:51:00 Test Item Value Reference Range Interpretation Comments UA Leuk Est (test Negative (02/08/22 3:51 code = UA Leuk Est) PM) [facility] [id number] 20:51:00 Test Item Value Reference Range Interpretation Comments UA Sq Epi (test code = UA Sq Occasional /LPF Epi) [facility] [id number] 20:51:00 Test Item Value Reference Range Interpretation Comments UA WBC (test code = 1 See_Comment [Automa lev message] The UA WBC) system which ge nerated this result transmit lev reference range : <=5. The reference range was not used to interpr et this result as kellie l/abnormal. [facility] [id number] 20:51:00 Test Item Value Reference Range Interpretation Comments UA RBC (test code = 2 See_Comment [Automa lev message] The UA RBC) system which ge nerated this result transmit lev reference range : <=2. The reference range was not used to interpr et this result as kellie l/abnormal. [facility] [id number] 20:51:00 Test Item Value Reference Range Interpretation Comments UA Mucus (test code = UA Mucus) Few /LPF [facility] [id number] 20:15:00 Test Item Value Reference Range Interpretation Comments Glucose Lvl (test code = Glucose Lvl) 96 70-99 [place] 163602-07-03 20:15:00 Test Item Value Reference Range Interpretation Comments BUN (test code = BUN) 15 7-22 [place] 163602-07-03 20:15:00 Test Item Value Reference Range Interpretation Comments Creatinine Lvl (test code = Creatinine 0.94 0.50-1.40 Lvl) [facility]2022-07-03 20:15:00 Test Item Value Reference Range Interpretation Comments Sodium Lvl (test code = Sodium Lvl) 141 135-145 [place] 163602-07-03 20:15:00 Test Item Value Reference Range Interpretation Comments Potassium Lvl (test code = Potassium 4.3 3.5-5.1 Lvl) [place] 163602-07-03 20:15:00 Test Item Value Reference Range Interpretation Comments Chloride Lvl (test code = Chloride Lvl) 111 95-109 [place] 163602-07-03 20:15:00 Test Item Value Reference Range Interpretation Comments CO2 (test code = CO2) 26 24-32 [place] 163602-07-03 20:15:00 Test Item Value Reference Range Interpretation Comments Calcium Lvl (test code = Calcium Lvl) 8.5 8.5-10.5 [place] 163602-07-03 20:15:00 Test Item Value Reference Range Interpretation Comments Total Protein (test code = Total 6.7 6.4-8.4 Protein) [place] 163602-07-03 20:15:00 Test Item Value Reference Range Interpretation Comments Albumin Lvl (test code = Albumin Lvl) 3.1 3.5-5.0 [place] 163602-07-03 20:15:00 Test Item Value Reference Range Interpretation Comments ALT (test code = ALT) 46 See_Comment [Auto mated message] The system which ge nerated this result transmit lev reference range : <=65. The reference range was not used to interpr et this result as kellie l/abnormal. [place] 163602-07-03 20:15:00 Test Item Value Reference Range Interpretation Comments AST (test code = AST) 57 See_Comment [Auto mated message] The system which ge nerated this result transmit lev reference range : <=37. The reference range was not used to interpr et this result as kellie l/abnormal. [facility]2022-07-03 20:15:00 Test Item Value Reference Range Interpretation Comments Alk Phos (test code = Alk Phos) 103 39-[address] [facility]2022-07-03 20:15:00 Test Item Value Reference Range Interpretation Comments Bili Total (test code = Bili Total) 0.7 0.2-1.[address] [facility]2022-07-03 20:15:00 Test Item Value Reference Range Interpretation Comments AGAP (test code = AGAP) 8.3 10.0-20.[address] [facility]2022-07-03 20:15:00 Test Item Value Reference Range Interpretation Comments B/C Ratio (test code = B/C Ratio) 16 1 6-25 [place] 163602-07-03 20:15:00 Test Item Value Reference Range Interpretation Comments Globulin (test code = Globulin) 3.6 2.7-4.[address] [facility]2022-07-03 20:15:00 Test Item Value Reference Range Interpretation Comments A/G Ratio (test code = A/G Ratio) 0.9 1 0.7-1.6 [place] 163602-07-03 20:15:00 Test Item Value Reference Range Interpretation Comments eGFR (test code = eGFR) 82 [id number] 20:15:00 Test Item Value Reference Range Interpretation Comments WBC (test code = WBC) 4.1 3.7-10.4 [place] [address]-07-03 20:15:00 Test Item Value Reference Range Interpretation Comments RBC (test code = RBC) 4.28 4.70-6.10 [place] 512042-07-03 20:15:00 Test Item Value Reference Range Interpretation Comments Hgb (test code = Hgb) 13.9 14.0-18.0 [place] 512042-07-03 20:15:00 Test Item Value Reference Range Interpretation Comments Hct (test code = Hct) 41.2 42.0-54.0 [place] [address]-07-03 20:15:00 Test Item Value Reference Range Interpretation Comments MCV (test code = MCV) 96.3 80.0-94.0 [place] [address]-07-03 20:15:00 Test Item Value Reference Range Interpretation Comments MCH (test code = MCH) 32.6 pg 27.0-31.0 [place] [address]-07-03 20:15:00 Test Item Value Reference Range Interpretation Comments MCHC (test code = MCHC) 33.8 32.0-36.0 [place] [address]-07-03 20:15:00 Test Item Value Reference Range Interpretation Comments RDW (test code = RDW) 14.6 11.5-14.5 [place] [address]-07-03 20:15:00 Test Item Value Reference Range Interpretation Comments Platelet (test code = Platelet) 74 133-450 [place] 512042-07-03 20:15:00 Test Item Value Reference Range Interpretation Comments MPV (test code = MPV) 10.0 7.4-10.4 [place] [address]-07-03 20:15:00 Test Item Value Reference Range Interpretation Comments Segs (test code = Segs) 57.8 45.0-75.0 [place] [address]-07-03 20:15:00 Test Item Value Reference Range Interpretation Comments Lymphocytes (test code = Lymphocytes) 29.0 20.0-40.0 [place] [address]-07-03 20:15:00 Test Item Value Reference Range Interpretation Comments Monocytes (test code = Monocytes) 10.0 2.0-12.0 [place] 512042-07-03 20:15:00 Test Item Value Reference Range Interpretation Comments Eosinophils (test code = 2.5 See_Comment [A utomated message] The Eosinophils) system which ge nerated this result tra nsmitted reference range : <=4.0. The reference r bryan was not used to int erpret this result as normal/abnormal . [place] [address]-07-03 20:15:00 Test Item Value Reference Range Interpretation Comments Basophils (test code = 0.7 See_Comment [Aut omated message] The Basophils) system which ge nerated this result tra nsmitted reference range : <=1.0. The reference r bryan was not used to int erpret this result as normal/abnormal . [place] 512042-07-03 20:15:00 Test Item Value Reference Range Interpretation Comments Neutrophils # (test code = Neutrophils 2.3 1.5-8.1 #) [place] [id number] 20:15:00 Test Item Value Reference Range Interpretation Comments Lymphocytes # (test code = Lymphocytes 1.2 1.0-5.5 #) [place] 512042-07-03 20:15:00 Test Item Value Reference Range Interpretation Comments Monocytes # (test code 0.4 See_Comment [Aut omated message] The = Monocytes #) system which generated this result tra nsmitted reference range : <=0.8. The reference r bryan was not used to int erpret this result as normal/abnormal . [place] 34528-07-03 20:15:00 Test Item Value Reference Range Interpretation Comments Eosinophils # (test code 0.1 See_Comment [A utomated message] The = Eosinophils #) system whic h generated this result tra nsmitted reference range : <=0.5. The reference r bryan was not used to int erpret this result as normal/abnormal . [id number] 20:15:00 Test Item Value Reference Range Interpretation Comments MCH (test code = MCH) 32.6 pg 27.0-31.0 [place] 34528-07-03 20:15:00 Test Item Value Reference Range Interpretation Comments MCHC (test code = MCHC) 33.8 32.0-36.0 [place] 512042-07-03 20:15:00 Test Item Value Reference Range Interpretation Comments RDW (test code = RDW) 14.6 11.5-14.5 [place] 34528-07-03 20:15:00 Test Item Value Reference Range Interpretation Comments Platelet (test code = Platelet) 74 133-450 [place] 512042-07-03 20:15:00 Test Item Value Reference Range Interpretation Comments MPV (test code = MPV) 10.0 7.4-10.4 [place] 512042-07-03 20:15:00 Test Item Value Reference Range Interpretation Comments Segs (test code = Segs) 57.8 45.0-75.0 [id number] 20:15:00 Test Item Value Reference Range Interpretation Comments Lymphocytes (test code = Lymphocytes) 29.0 20.0-40.0 [place] 512042-07-03 20:15:00 Test Item Value Reference Range Interpretation Comments Monocytes (test code = Monocytes) 10.0 2.0-12.0 [id number] 20:15:00 Test Item Value Reference Range Interpretation Comments Eosinophils (test code = 2.5 See_Comment [A utomated message] The Eosinophils) system which ge nerated this result tra nsmitted reference range : <=4.0. The reference r bryan was not used to int erpret this result as normal/abnormal . [place] 512042-07-03 20:15:00 Test Item Value Reference Range Interpretation Comments Basophils (test code = 0.7 See_Comment [Aut omated message] The Basophils) system which ge nerated this result tra nsmitted reference range : <=1.0. The reference r bryan was not used to int erpret this result as normal/abnormal . [id number] 20:15:00 Test Item Value Reference Range Interpretation Comments Neutrophils # (test code = Neutrophils 2.3 1.5-8.1 #) [place] 512042-07-03 20:15:00 Test Item Value Reference Range Interpretation Comments Lymphocytes # (test code = Lymphocytes 1.2 1.0-5.5 #) [place] 512042-07-03 20:15:00 Test Item Value Reference Range Interpretation Comments Monocytes # (test code 0.4 See_Comment [Aut omated message] The = Monocytes #) system which generated this result tra nsmitted reference range : <=0.8. The reference r bryan was not used to int erpret this result as normal/abnormal . [place] 512042-07-03 20:15:00 Test Item Value Reference Range Interpretation Comments Eosinophils # (test code 0.1 See_Comment [A utomated message] The = Eosinophils #) system [facility] h generated this result tra nsmitted reference range : <=0.5. The reference r bryan was not used to int erpret this result as normal/abnormal . [place] 163602-07-03 20:15:00 Test Item Value Reference Range Interpretation Comments Glucose Lvl (test code = Glucose Lvl) 96 70-99 [place] 163602-07-03 20:15:00 Test Item Value Reference Range Interpretation Comments BUN (test code = BUN) 15 7-22 [place] 163602-07-03 20:15:00 Test Item Value Reference Range Interpretation Comments Creatinine Lvl (test code = Creatinine 0.94 0.50-1.40 Lvl) [place] 163602-07-03 20:15:00 Test Item Value Reference Range Interpretation Comments Sodium Lvl (test code = Sodium Lvl) 141 135-145 [place] 163602-07-03 20:15:00 Test Item Value Reference Range Interpretation Comments Potassium Lvl (test code = Potassium 4.3 3.5-5.1 Lvl) [place] 163602-07-03 20:15:00 Test Item Value Reference Range Interpretation Comments Chloride Lvl (test code = Chloride Lvl) 111 95-109 [place] 163602-07-03 20:15:00 Test Item Value Reference Range Interpretation Comments CO2 (test code = CO2) 26 24-32 [place] 163602-07-03 20:15:00 Test Item Value Reference Range Interpretation Comments Calcium Lvl (test code = Calcium Lvl) 8.5 8.5-10.[address] [facility]2022-07-03 20:15:00 Test Item Value Reference Range Interpretation Comments Total Protein (test code = Total 6.7 6.4-8.4 Protein) [facility]2022-07-03 20:15:00 Test Item Value Reference Range Interpretation Comments Albumin Lvl (test code = Albumin Lvl) 3.1 3.5-5.0 [place] 163602-07-03 20:15:00 Test Item Value Reference Range Interpretation Comments ALT (test code = ALT) 46 See_Comment [Auto mated message] The system which ge nerated this result transmit lev reference range : <=65. The reference range was not used to interpr et this result as kellie l/abnormal. [place] 163602-07-03 20:15:00 Test Item Value Reference Range Interpretation Comments AST (test code = AST) 57 See_Comment [Auto mated message] The system which ge nerated this result transmit lev reference range : <=37. The reference range was not used to interpr et this result as kellie l/abnormal. [facility] [id number] 20:15:00 Test Item Value Reference Range Interpretation Comments Alk Phos (test code = Alk Phos) 103 39-136 [facility] [id number] 20:15:00 Test Item Value Reference Range Interpretation Comments Bili Total (test code = Bili Total) 0.7 0.2-1.3 [place] 163602-07-03 20:15:00 Test Item Value Reference Range Interpretation Comments AGAP (test code = AGAP) 8.3 10.0-20.0 [facility] [id number] 20:15:00 Test Item Value Reference Range Interpretation Comments B/C Ratio (test code = B/C Ratio) 16 1 6-25 [facility] [id number] 20:15:00 Test Item Value Reference Range Interpretation Comments Globulin (test code = Globulin) 3.6 2.7-4.2 [facility] [id number] 20:15:00 Test Item Value Reference Range Interpretation Comments A/G Ratio (test code = A/G Ratio) 0.9 1 0.7-1.6 [facility] [id number] 20:15:00 Test Item Value Reference Range Interpretation Comments eGFR (test code = eGFR) 82 [place] 512042-07-03 20:15:00 Test Item Value Reference Range Interpretation Comments WBC (test code = WBC) 4.1 3.7-10.4 [place] 345[address]-07-03 20:15:00 Test Item Value Reference Range Interpretation Comments RBC (test code = RBC) 4.28 4.70-6.10 [place] 34528-07-03 20:15:00 Test Item Value Reference Range Interpretation Comments Hgb (test code = Hgb) 13.9 14.0-18.0 [place] 512042-07-03 20:15:00 Test Item Value Reference Range Interpretation Comments Hct (test code = Hct) 41.2 42.0-54.0 [id number] 20:15:00 Test Item Value Reference Range Interpretation Comments MCV (test code = MCV) 96.3 80.0-94.[address] [facility]2022-05-26 12:54:00 Test Item Value Reference Range Interpretation Comments POC Creatinine (test code = POC 1.1 0.5-1.4 Creatinine) [facility]2022-05-26 12:54:00 Test Item Value Reference Range Interpretation Comments eGFR (test code = eGFR) [address] [facility]2022-05-26 12:54:00 Test Item Value Reference Range Interpretation Comments POC Creatinine (test code = POC 1.1 0.5-1.4 Creatinine) [facility]2022-05-26 12:54:00 Test Item Value Reference Range Interpretation Comments eGFR (test code = eGFR) 68 [facility] AND [id number] 16:01:00 Test Item Value Reference Range Interpretation Comments POC UA Color (test Yellow *NA*(12/24/21 code = POC UA Color) 11:01 AM) [facility] AND [id number] 16:01:00 Test Item Value Reference Range Interpretation Comments POC UA Turbidity (test Clear *NA*(12/24/21 code = POC UA Turbidity) 11:01 AM) [facility] AND [id number] 16:01:00 Test Item Value Reference Range Interpretation Comments POC UA SG (test code = POC UA SG) 1.025 1 [facility] AND [id number] 16:01:00 Test Item Value Reference Range Interpretation Comments POC UA pH (test code = POC UA pH) 5.5 1 5.0-8.0 [facility] AND [id number] 16:01:00 Test Item Value Reference Range Interpretation Comments POC UA Prot (test code = POC Negative mg/dL UA Prot) [facility] AND [id number] 16:01:00 Test Item Value Reference Range Interpretation Comments POC UA Glu (test code = POC UA Negative mg/dL Glu) [facility] AND [id number] 16:01:00 Test Item Value Reference Range Interpretation Comments POC UA Ket (test code = POC UA Negative mg/dL Ket) [facility] AND [id number] 16:01:00 Test Item Value Reference Range Interpretation Comments POC UA Bili (test Negative *NA*(12/24/21 code = POC UA Bili) 11:01 AM) [facility] [id number] 16:01:00 Test Item Value Reference Range Interpretation Comments POC UA Bld (test code Negative *NA*(12/24/21 = POC UA Bld) 11:01 AM) [facility] [id number] 16:01:00 Test Item Value Reference Range Interpretation Comments POC UA Uro (test code = POC UA Uro) 1.0 0.1-1.0 [facility] [id number] 16:01:00 Test Item Value Reference Range Interpretation Comments POC UA Nit (test code Negative *NA*(12/24/21 = POC UA Nit) 11:01 AM) [facility] [id number] 16:01:00 Test Item Value Reference Range Interpretation Comments POC UA LeukEst (test Negative *NA*(12/24/21 code = POC UA LeukEst) 11:01 AM) [facility] [id number] 16:01:00 Test Item Value Reference Range Interpretation Comments POC UA Color (test Yellow *NA*(12/24/21 code = POC UA Color) 11:01 AM) [facility] [id number] 16:01:00 Test Item Value Reference Range Interpretation Comments POC UA Turbidity (test Clear *NA*(12/24/21 code = POC UA Turbidity) 11:01 AM) [facility] [id number] 16:01:00 Test Item Value Reference Range Interpretation Comments POC UA SG (test code = POC UA SG) 1.025 1 [facility] [id number] 16:01:00 Test Item Value Reference Range Interpretation Comments POC UA pH (test code = POC UA pH) 5.5 1 5.0-8.0 [facility] [id number] 16:01:00 Test Item Value Reference Range Interpretation Comments POC UA Prot (test code = POC Negative mg/dL UA Prot) [facility] [id number] 16:01:00 Test Item Value Reference Range Interpretation Comments POC UA Glu (test code = POC UA Negative mg/dL Glu) [facility] [id number] 16:01:00 Test Item Value Reference Range Interpretation Comments POC UA Ket (test code = POC UA Negative mg/dL Ket) [facility] [id number] 16:01:00 Test Item Value Reference Range Interpretation Comments POC UA Bili (test Negative *NA*(12/24/21 code = POC UA Bili) 11:01 AM) [facility] AND [id number] 16:01:00 Test Item Value Reference Range Interpretation Comments POC UA Bld (test code Negative *NA*(12/24/21 = POC UA Bld) 11:01 AM) [facility] AND [id number] 16:01:00 Test Item Value Reference Range Interpretation Comments POC UA Uro (test code = POC UA Uro) 1.0 0.1-1.0 [facility] [id number] 16:01:00 Test Item Value Reference Range Interpretation Comments POC UA Nit (test code Negative *NA*(12/24/21 = POC UA Nit) 11:01 AM) [facility] AND [id number] 16:01:00 Test Item Value Reference Range Interpretation Comments POC UA LeukEst (test Negative *NA*(12/24/21 code = POC UA LeukEst) 11:01 AM) [facility]
--- NOTE | 2022-05-31 11:48 | ER ---
Nurse's Notes [facility] Name: Fuentes Sanches Age: 71 yrs Sex: Male : 1950 Arrival Date: 05/31/2022 Time: 11:32 Bed Waiting Private MD: Chandler Talamantes Diagnosis: Presentation: 05/31 11:39 Chief complaint: Patient states: left flank pain started yesterday. Coronavirus screen: [facility] Vaccine status: Patient reports receiving the 2nd dose of the covid vaccine. Ebola Screen: No symptoms or risks identified at this time. Initial Sepsis Screen: Does the patient meet any 2 criteria? No. Patient's initial sepsis screen is negative. Does the patient have a suspected source of infection? No. Patient's initial sepsis screen is negative. Risk Assessment: Do you want to hurt yourself or someone else? Patient reports no desire to harm self or others. Onset of symptoms was May 30, 2022. 11:39 Method Of Arrival: Ambulatory 3 11:39 Acuity: JENNIFER 3 3 Vital Signs: 11:39 BP 125 / 83; Pulse 55; Resp 16; Temp 96.8; Pulse Ox 100% on R/A; Weight 83.91 kg; eh3 Height 5 ft. 8 in. (172.72 cm); Pain 1/10; 11:39 Body Mass Index 28.13 (83.91 kg, 172.72 cm) 3 ED Course: 11:32 Patient arrived in ED. mr 11:32 Chandler Talamantes DO is Private Physician. mr 11:36 Nick Soto MD is Attending Physician. rn 11:44 Triage completed. 3 Administered Medications: No medications were administered Outcome: 11:48 Patient left the ED. [facility] Signatures: Dianne Madden Roman, MD MD rn [place] RN RN [facility]
[2022-05-31 11:52] VITALS: BP 125/83; TEMP 96.8; O2SAT 100
== END 2022-05-31 11:48 | disposition left against medical advice (07) ==
LOC: ER 11:27
DX: Z53.21 Procedure and treatment not carried out due to patient leaving prior to being seen by health care provider (principal)
CPT/HCPCS: 99281